=== PATIENT | female | born 1955 | race Caucasian/White ===

== ENCOUNTER 2020-08-23 09:55 | Outpatient (REF) | payer MEDICAID, SELFPAY | END 2020-08-23 09:56 | disposition home or self-care (01) | LOC: HO.SCI 09:55 | DX: Z13.89 Encounter for screening for other disorder (principal) ==

== ENCOUNTER 2020-09-22 11:49 | Outpatient (REF) | payer MEDICAID, SELFPAY ==
--- NOTE | ~2020-09-22 | US_ITS ---
EXAMINATION: US RETROPERITONEAL LIMITED (RENAL ONLY) CLINICAL INFORMATION: Chronic kidney disease stage III B. COMPARISON: None TECHNIQUE: Real-time imaging of the kidneys. FINDINGS: RIGHT KIDNEY: 7.0 x 2.3 x 4.1 cm (SAG x AP x TRV). The right kidney is smaller than the left. There is renal cortical thinning. There is fullness of the renal pelvis. No calyceal dilatation is seen. No renal stone or mass is seen. LEFT KIDNEY: 10.8 x 4.6 x 4.8 cm (SAG x AP x TRV). The kidney is normal in size, contour, and echogenicity. Renal cortical thickness is normal. No calculi or focal parenchymal lesions. No hydronephrosis. US/US renal BI IMPRESSION: Atrophic-appearing right kidney. Normal-appearing left kidney.
== END 2020-09-22 11:50 | disposition home or self-care (01) ==
LOC: HO.US 11:49
PROVIDERS: Visit Provider Internal Medicine Nephrology
DX: N18.32 Chronic kidney disease, stage 3b (principal)
CPT/HCPCS: 76775

== ENCOUNTER 2021-11-19 15:05 | Outpatient (REF) | payer MEDICAID, SELFPAY ==
--- NOTE | ~2021-11-19 | MM_ITS ---
EXAMINATION: MM SCREENING DIGITAL BREAST TOMOSYNTHESIS, BILATERAL CLINICAL INFORMATION: Screening. Asymptomatic. The lifetime risk of breast cancer based on the Tyrer-Cuzick Model is 6%. COMPARISON: Outside mammography: 12/12/2017, 11/25/2017 ([facility]). TECHNIQUE: Digital breast tomosynthesis is performed in both the craniocaudal and mediolateral oblique views along with computer-aided detection (CAD). Synthesized 2D images are generated from the tomosynthesis. FINDINGS: There are scattered areas of fibroglandular density (ACR BI-RADS breast composition Category b). There are no significant masses, abnormal calcifications, or other abnormalities. Left breast has biopsy clip marker posterior upper outer quadrant overlying a smooth nodule slightly decreased in size. There is a intramammary node mid 3:00 left breast. Bilateral vascular calcifications are demonstrated. No significant changes. MM/MM tomosynthesis screening BI IMPRESSION: No mammographic evidence of malignancy. ASSESSMENT: BI-RADS 2: Benign RECOMMENDATION: Routine annual mammography screening. This patient's information was entered into a reminder system with a target due date for their next mammogram.
== END 2021-11-19 15:06 | disposition home or self-care (01) ==
LOC: HO.MAMMO 15:05
PROVIDERS: Visit Provider Internal Medicine
DX: Z12.31 Encounter for screening mammogram for malignant neoplasm of breast (principal)
CPT/HCPCS: 77063; 77067

== ENCOUNTER 2023-04-14 12:04 | Outpatient (REF) | payer MEDICAID, SELFPAY ==
[2023-04-14 13:39] LABS: Anion Gap 14 (12-20); Blood Urea Nitrogen 17 mg/dL (9-16); Calcium 10.1 mg/dL (8.4-10.2); Carbon Dioxide 24 mmol/L (22-29); Chloride 107 mmol/L (96-108); Estimated Glomerular Filt Rate 52; Glucose Random 101 mg/dL (60-115); Potassium 3.8 mmol/L (3.3-5.1); Sodium 141 mmol/L (135-145)
== END 2023-04-14 12:05 | disposition home or self-care (01) ==
LOC: HO.HHCL 12:04
PROVIDERS: Visit Provider Internal Medicine
DX: E11.22 Type 2 diabetes mellitus with diabetic chronic kidney disease (principal); N18.30 Chronic kidney disease, stage 3 unspecified; Z79.4 Long term (current) use of insulin
CPT/HCPCS: 36415; 80048

== ENCOUNTER 2023-09-16 09:57 | Outpatient (REF) | payer OTHER, SELFPAY ==
[2023-09-16 12:41] LABS: Anion Gap 17 (12-20); Blood Urea Nitrogen 15 mg/dL (9-16); Calcium 9.9 mg/dL (8.4-10.2); Carbon Dioxide 23 mmol/L (22-29); Chloride 105 mmol/L (96-108); Cholesterol 193 mg/dL (<200); Estimated Glomerular Filt Rate 57; Glucose Random 93 mg/dL (60-115); HDL Cholesterol 32 mg/dL (>40); Potassium 3.7 mmol/L (3.3-5.1); Sodium 141 mmol/L (135-145); Triglycerides 427 mg/dL (<150)
[2023-09-16 13:00] LABS: Vitamin D 25-OH Total 30.4 ng/mL (>30)
== END 2023-09-16 09:58 | disposition home or self-care (01) ==
LOC: HO.HHCL 09:57
PROVIDERS: Visit Provider Internal Medicine
DX: I12.9 Hypertensive chronic kidney disease with stage 1 through stage 4 chronic kidney disease, or unspecified chronic kidney disease (principal); E11.22 Type 2 diabetes mellitus with diabetic chronic kidney disease; N18.30 Chronic kidney disease, stage 3 unspecified; Z79.4 Long term (current) use of insulin
CPT/HCPCS: 36415; 80048; 80061; 82306

== ENCOUNTER 2024-03-29 12:28 | Outpatient (REF) | payer OTHER, SELFPAY ==
--- NOTE | ~2024-03-29 | XR_ITS ---
EXAMINATION: XR FOOT, RIGHT CLINICAL INFORMATION: Right foot pain after fall COMPARISON: None available. TECHNIQUE: AP, lateral, and oblique views of the right foot. FINDINGS: Decreased bone mineral density which decreases sensitivity for fracture evaluation. No acute visible fracture or dislocation. Multi joint arthritic changes. Plantar calcaneal heel spur. Joint space alignment are maintained. Soft tissues are unremarkable. XR/XR foot RT min 3V IMPRESSION: 1. Decreased bone mineral density which decreases sensitivity for fracture evaluation. 2. No acute visible fracture or dislocation. 3. Multi joint arthritic changes.
== END 2024-03-29 12:29 | disposition home or self-care (01) ==
LOC: HO.HHCX 12:28
PROVIDERS: Visit Provider Internal Medicine
DX: M79.671 Pain in right foot (principal)
CPT/HCPCS: 73630

== ENCOUNTER 2024-10-05 10:40 | Outpatient (REF) | payer OTHER, SELFPAY ==
--- OUTSIDE RECORDS SUMMARY | 2024-10-05 11:42 | XMS_ITS | Clinical Summary ---
Author Organization [facility], Address [address] [place] [address] [place] [address] Phone Care Team Providers Care Material Control Clerk Name Role Phone Lynette Gipson MD Primary Care Provide r Allergies No known active allergies Medications Dulaglutide (Trulicity) 1.5 MG/0.5ML solution pen-injector Inject under the skin per week Active amLODIPine-valentino zepril (LOTREL 5-20) 5-20 MG per capsule Take 1 capsule by mouth 1 (one) time each day Active hydroCHLOROthia zide (HYDRODIURIL) 12.5 MG tablet Take 12.5 mg by mouth 1 (one) time each day Active metoprolol succinate XL (TOPROL-XL) 25 MG 24 hr tablet Take 25 mg by mouth 1 (one) time each day Do not crush or chew. Active atorvastatin (LIPITOR) 40 MG tablet Take 40 mg by mouth 1 (one) time each day Active ergocalciferol 1.25 MG (39848 UT) capsule TAKE 1 CAPSULE (50,000 UNITS TOTAL) BY MOUTH ONCE WEEKLY 12 capsule 3 07/05/2022 Active insulin glargine (LANTUS) 100 UNIT/ML injection Inject under the skin every night Active sertraline (ZOLOFT) 25 MG tablet Take 25 mg by mouth 1 (one) time each day Active Active Problems Problem Noted Date Diagnosed Date Vitamin D deficiency, not otherwise specified Stage 3b chronic kidney disease 08/06/2020 Overview (08/18/2020): Update for Diagnosis Load Type 2 diabetes mellitus 08/06/2020 Essential hypertension 08/06/2020 Resolved Problems Problem Noted Date Diagnosed Date Resolved Date Stage 3a chronic kidney disease 07/27/2021 07/22/2022 Social History Tobacco Use Types Packs/Day Years Used Date Smoking Tobacco: Never Assessed Comments Unknown Sex and Gender Information Value Date Recorded Sex Assigned at Not on file Legal Sex Female 12:31 PM EST Gender Identity Not on file Sexual Orientation Not on file Plan of Treatment Health Maintenance Due Date Last Done Comments Breast Cancer Screening 1955 Pneumococcal Vaccine: 65+ Ye ars (1 of 2 - PCV) 02/22/1962 Colorectal Cancer Screening: Annual FOBT 02/22/2005 Colorectal Cancer Screening: Colonoscopy 02/22/2005 Colorectal Cancer Screening: Sigmoidoscopy 02/22/2005 Diabetes: Hemoglobin A1C 08/06/2020 Diabetes: Ophthalmology Exam 08/06/2020 Diabetes: Pedal Pulse Checked 08/06/2020 Diabetes: Sensory Foot Exam 08/06/2020 Diabetes: Visual Foot Exam 08/06/2020 Influenza Vaccine (#1) 2024 Hepatitis B Vaccine Aged Out No longe r eligible based on patient's age to complete this topic Insurance Care Teams Material Control Clerk Relationship Specialty Start Date End Date Lynette Gipson MD [address] [place] [phone] PCP - General Internal Medicine 07/08/20
--- OUTSIDE RECORDS SUMMARY | 2024-10-05 11:42 | XMS_ITS | Encounter Summary ---
Author Organization [employer] [employer] Address [address] [place] [address] Care Team Providers Care Technical Sales Director Name Role Phone Lynette Gipson MD Primary Care Provide r Encounter Details Date Type Department Care Team (Latest Contact Info) Description 10/05/2024 Travel Social History Tobacco Use Types Packs/Day Years Used Date Smoking Tobacco: Never Passive Smoke Exposure: Never Smokeless Tobacco: Never Alcohol Use Standard Drinks/Week Comments Never 0 (1 standard drink = 0.6 oz pur e alcohol) Depression Answer Date Recorded Patient Health Questionnaire-9 Score 0 06/29/2024 Patient Health Questionnaire-9 Score 0 06/29/2024 Last PHQ-9: Questionnaire Data Not on file 1 08/29/2023 Housing Stability Answer Date Recorded What is your housing situation today? I have teri mark 03/29/[address] you li ve. Do you have problems with any of the following? None of the above 03/29/2024 Food Insecurity Answer Date Recorded Within the past 12 months, y ou worried that your food would run out before you got money to buy more: Never True 03/29/2024 Within the past 12 months,th e food you bought just didn't last and you didn't have enough money to get more: Never True Transportation Answer Date Recorded In the past 12 months, has l ack of transportation kept you from medical appts, meetings, work or from getting things needed for daily living? No 03/29/2024 Utilities Answer Date Recorded In the past 12 months, has t he electric, gas, oil or water company threatened to shut off services in your home? No 03/29/2024 Depression Answer Date Recorded Patient Health Questionnaire-2 Score 0 06/29/2024 Internet Access Answer Date Recorded Internet Access Q1 Yes 04/16/2024 Internet Access Q2 Not on file 04/16/2024 Comments Unknown Sex and Gender Information Value Date Recorded Sex Assigned at Female 06/14/2022 10:37 AM EDT Legal Sex Female 10:37 AM EDT Gender Identity Female 06/14/2022 10:37 AM EDT Sexual Orientation Straight 06/14/2022 10 :37 AM EDT documented as of this encounter Plan of Treatment Upcoming Encounters Date Type Department Care Team (Late st Contact Info) Description 10/22/2024 10:00 AM EDT Clinical Support [address] [address] 01/02/2025 10:30 AM EDT Office Visit [address] [address] Lynette Gipson MD [address] [place] [phone] documented as of this encounter Visit Diagnoses Not on filedocumented in this encounter Additional Health Concerns Assessment Noted Time PHQ-9 Depression Total Score: 0 06/29/20 24 10:24 AM EST documented as of this encounter Care Teams Technical Sales Director Relationship Specialty Start Date End Date Lynette Gipson MD [address] [place] [phone] PCP - General Family Medicine 09/24/20 documented as of this encounter
--- OUTSIDE RECORDS SUMMARY | 2024-10-05 11:42 | XMS_ITS | Encounter Summary ---
Author Organization [employer] Address [address] 7[address] [place] [address] Care Team Providers Care Road Mender Name Role Phone Lynette Gipson MD Primary Care Provide r Encounter Details Date Type Department Care Team ([facility] st Contact Info) Description 06/21/2024 Community Care Management [facility] [address] [place] [address] Epiccare Link, Physician, Social History Tobacco Use Types Packs/Day Years Used Date Smoking Tobacco: Never Passive Smoke Exposure: Never Smokeless Tobacco: Never Depression Answer Date Recorded Patient Health Questionnaire-9 Score 0 12/28/2023 Patient Health Questionnaire-9 Score 0 12/28/2023 Last PHQ-9: Questionnaire Data Not on file 0 12/28/2023 Housing Stability Answer Date Recorded What is [...] Date Recorded Patient Health Questionnaire-2 Score 0 12/28/2023 Internet Access Answer Date Recorded Internet Access [...] Description 10/22/2024 10:00 AM EDT Clinical Support [address] [address] 01/02/2025 10:30 AM EDT Office Visit [facility] [address] [place] [phone] Lynette Gipson MD [address] [place] [phone] documented as of this encounter Visit Diagnoses Not on filedocumented in this encounter Additional Health Concerns Assessment Noted Time PHQ-9 Depression Total Score: 0 12/28/19 24 10:29 AM EDT documented as of this encounter Care Teams Road Mender Relationship Specialty Start Date End Date Lynette Gipson MD [address] [place] [phone] PCP - General Family Medicine 09/24/20 documented as of this encounter
--- OUTSIDE RECORDS SUMMARY | 2024-10-05 11:42 | XMS_ITS | Encounter Summary ---
Author Organization [employer] Address [address] [facility] 7t [place] [address] Care Team Providers Care Insurance Operations Rep Name Role Phone Lynette Gipson MD Primary Care Provide r Reason for Referral * Medications - Closed Specialty Diagnoses / Procedures Referred By Portia t Referred To Contact Diagnoses Type 2 diabetes mellitus with stage 3 chronic kidney disease, with long-term current use of insulin, unspecified whether stage 3a or 3b CKD (CMS/HCC) Lynette Gipson MD [address] [place] [phone] Phone: tel: fax: Referral ID Status Reason Start Date Expiration Date Visits Re quested Visits Authorized [id number] Closed 1 1 Encounter Details Date Type Department Care Team (Late st Contact Info) Description 10/05/2024 10:00 AM EST Office Visit [facility] [address] [place] [phone] Lynette Gipson MD [address] [place] [phone] Type 2 diabetes mellitus with stage 3 chronic kidney disease, with long-term current use of insulin, unspecified whether stage 3a or 3b CKD (CMS/HCC) (Primary Dx); Resistant hypertension Social History Tobacco Use Types Packs/Day Years [...] AM EDT documented as of this encounter Last Filed Vital Signs Vital Sign Reading Time Taken Comments Blood Pressure 156/84 10/05/2024 10:26 AM EST Pulse 109 10/05/2024 10:26 AM EST Temperature 35 ??C (95 ??F) 10/05/2024 10:00 AM EST Respiratory Rate 22 10/05/2024 10:00 AM EST Oxygen Saturation - - Inhaled Oxygen Concentration - - Weight 57 kg (125 lb 9.6 oz) 10/05/2024 10:00 AM EST Height 144.8 cm (4' 9 ) 10/05/2024 10:00 AM EST Body Mass Index 27.18 10/05/2024 10:00 AM EST documented in this encounter Plan of Treatment Upcoming Encounters Date Type Department Care Team (Late st Contact Info) Description 10/22/2024 10:00 AM EDT Clinical Support [facility] [address] [place] [address] 01/02/2025 10:30 AM EDT Office Visit [address] [address] Lynette Gipson MD [address] [place] [address] Scheduled Orders Name Type Priority Associated Diagnoses Orde r Schedule CBC auto differential Lab Routine Type 2 diabetes mellitus with stage 3 chronic kidney disease, with long-term current use of insulin, unspecified whether stage 3a or 3b CKD (CMS/HCC) Resistant hypertension Expected: 10/05/2024 (Approximate), Expires: 10/05/2025 Comprehensive Metabolic Panel Lab Routine Type 2 diabetes mellitus with stage 3 chronic kidney disease, with long-term current use of insulin, unspecified whether stage 3a or 3b CKD (CMS/HCC) Resistant hypertension Expected: 10/05/2024 (Approximate), Expires: 10/05/2025 Hepatitis C Antibody with Reflex to HCV, RNA, Quantitative, Real-Time PCR Lab Routine Type 2 diabetes mellitus with stage 3 chronic kidney disease, with long-term current use of insulin, unspecified whether stage 3a or 3b CKD (CMS/HCC) Resistant hypertension Expected: 10/05/2024, Expires: 10/05/2025 Lipid Panel, Standard Lab Routine Type 2 diabetes mellitus with stage 3 chronic kidney disease, with long-term current use of insulin, unspecified whether stage 3a or 3b CKD (CMS/HCC) Resistant hypertension Expected: 10/05/2024 (Approximate), Expires: 10/05/2025 Vitamin D, 25-Hydroxy, Total, Immunoassay Lab Routine Type 2 diabetes mellitus with stage 3 chronic kidney disease, with long-term current use of insulin, unspecified whether stage 3a or 3b CKD (CMS/HCC) Resistant hypertension Expected: 10/05/2024 (Approximate), Expires: 10/05/2025 TSH with Reflex to Free T4 Lab Routine Type 2 diabetes mellitus with stage 3 chronic kidney disease, with long-term current use of insulin, unspecified whether stage 3a or 3b CKD (CMS/HCC) Resistant hypertension Expected: 10/05/2024 (Approximate), Expires: 10/05/2025 documented as of this encounter Procedures Procedure Name Priority Date/Time Associated Diagnosis Comments POCT GLUCOSE Routine 10/05/2024 10:02 AM EST Type 2 diabetes mellitus with stage 3 chronic kidney disease, with long-term current use of insulin, unspecified whether stage 3a or 3b CKD (CMS/HCC) documented in this encounter Results * POCT Glucose (10/05/2024 10:02 AM EST) Glucose Blood, POC 194 60 - 200 mg/dL Comment:random QC Media Lot # [id number] Lot# Expiration Date Blood Capillary blood specimen / Unknown 10/05/2024 10:02 AM EST Lynette Antonio MD POINT OF CARE TEST EN TER/EDIT ORDERABLES Final Result documented in this encounter Visit Diagnoses Diagnosis Type 2 diabetes mellitus with stage 3 chronic kidney disease, with long-term current use of insulin, unspecified whether stage 3a or 3b CKD (CMS/HCC)- Primary Resistant hypertension documented in this encounter Additional Health Concerns Assessment Noted Time PHQ-9 Depression Total Score: 0 06/29/20 24 10:24 AM EST documented as of this encounter Care Teams Insurance Operations Rep Relationship Specialty Start Date End Date Lynette Gipson MD [address] [place] [phone] PCP - General Family Medicine 09/24/20 documented as of this encounter
--- OUTSIDE RECORDS SUMMARY | 2024-10-05 11:42 | XMS_ITS | Encounter Summary ---
Author Organization [employer] Address [address] [place] [address] Care Team Providers Care Cafe Site Attendant Name Role Phone Lynette Gipson MD Primary Care Provide r Reason for Visit * Reason Onset Date Comments Chart Prep 09/28/2024 Encounter Details Date Type Department Care Team ([facility] st Contact Info) Description 09/28/2024 Telephone [facility] [address] [place], [place] [phone] Lynette Gipson MD [address] [place] [address] Chart Prep Social History Tobacco Use Types Packs/Day Years [...] AM EDT documented as of this encounter Miscellaneous Notes * Telephone Encounter - Deb Newton MA - 09/28/2024 3:11 PM EST Chart Prep Labs: done Images: not done Vaccines due: yes Referrals: Cardiology appt booked for 01/04/2024 aks patient if she went also podiatry 03/29/2024 Screenings: colonoscopy , mammogram Overdue care gaps: Glucose documented in this encounter Plan of Treatment Upcoming Encounters Date Type Department Care Team (Late st Contact Info) Description 10/22/2024 10:00 AM EDT Clinical Support [facility] [address] [place] [phone] 01/02/2025 10:30 AM EDT Office Visit [facility] [address] [place] [phone] Lynette Gipson MD [address] [place] [phone] documented as of this encounter Visit Diagnoses Not on filedocumented in this encounter Additional Health Concerns Assessment Noted Time PHQ-9 Depression Total Score: 0 06/29/20 24 10:24 AM EST documented as of this encounter Care Teams Cafe Site Attendant Relationship Specialty Start Date End Date Lynette Gipson MD [address] [place] [address] PCP - General Family Medicine 09/24/20 documented as of this encounter
--- OUTSIDE RECORDS SUMMARY | 2024-10-05 11:42 | XMS_ITS | Encounter Summary ---
Author Organization [employer] Address [address] [place] [address] Care Team Providers Care Food Manager Name Role Phone Lynette Gipson MD Primary Care Provide r Reason for Visit * Reason Comments Pre-visit Planning (Unable to reach for PVP screening, LVM) Encounter Details Date Type Department Care Team ([facility] st Contact Info) Description 09/20/2024 Patient Outreach [facility] [address] [place], [place] [phone] Lynette Gipson MD [address] [place] [address] Pre-visit Planning ((Unable to reach for PVP screening, LVM)) Social History Tobacco Use Types Packs/Day Years [...] AM EDT documented as of this encounter Progress Notes * Sandra Bronson - 09/20/2024 2:35 PM EST TALIB Flores. Placed outbound call to patient to complete pre-visit planning. No answer at this time. Patient name and were not confirmed. CC left voicemail requesting return call. Direct contact information provided. documented in this encounter Plan of Treatment Upcoming Encounters Date Type Department Care Team (Late st Contact Info) Description 10/22/2024 10:00 AM EDT Clinical Support [facility] [address] [place] [phone] 01/02/2025 10:30 AM EDT Office Visit [facility] [address] [place] [phone] Lynette Gipson MD [address] [place] [phone] documented as of this encounter Visit Diagnoses Not on filedocumented in this encounter Additional Health Concerns Assessment Noted Time PHQ-9 Depression Total Score: 0 06/29/20 24 10:24 AM EST documented as of this encounter Care Teams Food Manager Relationship Specialty Start Date End Date Lynette Gipson MD [address] [place] [address] PCP - General Family Medicine 09/24/20 documented as of this encounter
--- OUTSIDE RECORDS SUMMARY | 2024-10-05 11:42 | XMS_ITS | Encounter Summary ---
Author Organization [employer] Address [address] [place] [address] Care Team Providers Care Clinical Rehabilitation Aide Name Role Phone Lynette Gipson MD Primary Care Provide r Encounter Details Date Type Department Care Team ([facility] st Contact Info) Description 09/16/2023 Telephone [facility] [address] [place], [place] [phone] Lynette Gipson MD [address] [place], [place] [phone] Social History Tobacco Use Types Packs/Day Years [...] Description 10/22/2024 10:00 AM EDT Clinical Support [facility] [address] [place] [phone] 01/02/2025 10:30 AM EDT Office Visit [address] [address] Lynette Gipson MD [address] [place] [phone] documented as of this encounter Visit Diagnoses Not on filedocumented in this encounter Additional Health Concerns Assessment Noted Time PHQ-9 Depression Total Score: 5 11/09/19 23 9:02 AM EDT documented as of this encounter Care Teams Clinical Rehabilitation Aide Relationship Specialty Start Date End Date Lynette Gipson MD [address] [place] [phone] PCP - General Family Medicine 09/24/20 documented as of this encounter
--- OUTSIDE RECORDS SUMMARY | 2024-10-05 11:42 | XMS_ITS | Encounter Summary ---
Author Organization [facility] Address [address] [place] [address] Phone Care Team Providers Care Zipper Repairer Name Role Phone Lynette Gipson MD Primary Care Provide r Encounter Details Date Type Department Care Team (Late st Contact Info) Description 07/21/2022 Documentation Only [facility], [address] [place] [phone] Miguel Johnston PA Social History Tobacco Use Types Packs/Day Years Used Date Smoking Tobacco: Never Assessed Comments Unknown Sex and Gender Information Value Date Recorded Sex Assigned at Not on file Legal Sex Female 12:31 PM EST Gender Identity Not on file Sexual Orientation Not on file documented as of this encounter Plan of Treatment Not on file documented as of this encounter Visit Diagnoses Not on filedocumented in this encounter Care Teams Zipper Repairer Relationship Specialty Start Date End Date Lynette Gipson MD [address] [place] [phone] PCP - General Internal Medicine 07/08/20 documented as of this encounter
--- OUTSIDE RECORDS SUMMARY | 2024-10-05 11:42 | XMS_ITS | Encounter Summary ---
Author Organization [employer] Address [address] [facility] 7t [place] [address] Care Team Providers Care Conservator Artifacts Name Role Phone Lynette Gipson MD Primary Care Provide r Encounter Details Date Type Department Care Team (Late Contact Info) Description 11/09/2022 Orders Only [facility] [address] [place] [phone] Lynette Gipson MD [address] [place] [address] [phone] Dyslipidemia associated with type 2 diabetes mellitus (CMS/HCC) (Primary Dx) Social History Tobacco Use Types Packs/Day Years Used Date Smoking Tobacco: Never Passive Smoke Exposure: Never Smokeless Tobacco: Never Depression Answer Date Recorded Patient Health Questionnaire-9 Score 5 11/08/2022 Depression Answer Date Recorded Patient Health Questionnaire-2 Score 2 11/08/2022 Comments Unknown Sex and Gender Information Value Date Recorded Sex Assigned at Female 06/14/2022 10:37 AM EDT Legal Sex Female 10:37 AM EDT Gender Identity Female 06/14/2022 10:37 AM EDT Sexual Orientation Straight 06/14/2022 10 :37 AM EDT COVID-19 Exposure Response Date Recorded In the last 10 days, have yo u been in contact with someone who was confirmed or suspected to have Coronavirus/COVID-19? No / Unsure 11/08/2022 8:44 AM EDT documented as of this encounter Plan of Treatment Upcoming Encounters Date Type Department Care Team (Late Contact Info) Description 10/22/2024 10:00 AM EDT Clinical Support [facility] [address] [place] [phone] 01/02/2025 10:30 AM EDT Office Visit [facility] [address] [place], [place] [phone] Lynette Gipson MD [address] [place] [address] documented as of this encounter Visit Diagnoses Diagnosis Dyslipidemia associated with type 2 diabetes mellitus (CMS/HCC) (CMS/HCC)- Primary documented in this encounter Additional Health Concerns Assessment Noted Time PHQ-9 Depression Total Score: 5 11/09/19 23 9:02 AM EDT documented as of this encounter Care Teams Conservator Artifacts Relationship Specialty Start Date End Date Lynette Gipson MD [address] [place] [address] PCP - General Family Medicine 09/24/20 documented as of this encounter
--- OUTSIDE RECORDS SUMMARY | 2024-10-05 11:42 | XMS_ITS | Clinical Summary ---
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 Role Phone Unavailable Primary Care Provider Unavailabl e Social History Tobacco Use Types Packs/Day Years Used Date Smoking Tobacco: Never Assessed Comments Unknown Sex and Gender Information Value Date Recorded Sex Assigned at Not on file Legal Sex Female 8:28 AM EST Gender Identity Not on file Sexual Orientation Not on file Plan of Treatment Health Maintenance Due Date Last Done Comments DTaP,Tdap,and Td Vaccines (1 - Tdap) 02/22/1975 Pneumococcal Vaccine: 50+ Ye ars (1 of 1 - PCV) 02/22/2006 Zoster Vaccines (1 of 2) 02/22/2006 Breast Cancer Screening 11/26/2019 11/25/2017 Colorectal Cancer Screening: Colonoscopy 09/13/2023 Depression Screening 09/13/2023 Falls Risk Assessment 09/13/2023 Hepatitis C Screening 09/13/2023 Osteoporosis Screening (Bone Density Screening) 09/13/2023 Social Influencers of Health Screening 09/13/2023 COVID-19 Vaccine (1 - 2023-2 5 season) 2024 Influenza Vaccine (#1) 2024 RSV Immunization Patients 60 + Years Old (1 - 1-dose 75+ series) 02/22/2031 HIB Vaccines Aged Out No longer eligi ble based on patient's age to complete this topic HPV Vaccines Aged Out No longer eligi ble based on patient's age to complete this topic Hepatitis A Vaccines Aged Out No long er eligible based on patient's age to complete this topic Hepatitis B Vaccines Aged Out No long er eligible based on patient's age to complete this topic IPV Vaccines Aged Out No longer eligi ble based on patient's age to complete this topic MMR Vaccines Aged Out No longer eligi ble based on patient's age to complete this topic Meningococcal ACWY Vaccine Aged Out N o longer eligible based on patient's age to complete this topic Meningococcal B Vacine Aged Out No lo nger eligible based on patient's age to complete this topic RSV Immunization Patients Un porsha 20 months Aged Out No longer eligible b ased on patient's age to complete this topic Varicella Vaccines Aged Out No longer eligible based on patient's age to complete this topic Procedures Procedure Name Priority Date/Time Associated Diagnosis Comments GERMAN SCREENING DIGITAL Routine 11/25/2017 4:05 PM EDT Encounter for screening mammogram for malignant neoplasm of breast from Last 3 Months or Most Recently Relevant to Health Maintenance Results * GERMAN SCREENING DIGITAL (11/25/2017 4:05 PM EDT) Anatomical Region Laterality Modality Mammography 11/25/2017 12:5 2 PM EDT Narrative 11/25/2017 4:05 PM EDT [facility] Diagnostic Imaging Department [address] [place] [address] Patient: ??MADELEINE JIMÉNEZ ?/Age/Sex: 1955 - 62 - F Unit#: ??[id number] ? Location/Status: ??SPDIMAM/REG CLI ? Mnemonic/Ordering Site: ??DIGSC/SPMAM Ordering Physician: ??EVA DOMÍNGUEZ DO German Screening Digital - 11/25/17 - 1328 INDICATION: Screening. Family history breast cancer in sister at age 75. COMPARISON: Baseline mammogram TECHNIQUE: Routine views of both breasts were obtained using full-field direct digital mammography. Computer Aided Detection was utilized. BREAST PARENCHYMAL COMPOSITION: The breast parenchyma is composed of scattered fibroglandular densities. (Category b density ) . FINDINGS: ??There is no suspicious finding in the right breast. Well- circumscribed mass in the posterior third of the left breast is likely benign however given the absence of prior imaging, further evaluation with ultrasound is recommended at approximately 12-2 o'clock axis, 11 to 12 cm from the nipple. IMPRESSION: Well-circumscribed mass in the posterior aspect of the left breast. Recommend further evaluation with ultrasound as described above. OVERALL FINAL ASSESSMENT: BI-RADS 0: ??Incomplete. ??Need Additional Imaging Evaluation. PQRI CPT II 3340F A negative mammogram in the presence of clinically suspicious palpable abnormality does not preclude the possibility of malignancy or alter the indications for biopsy. Note: Patient information entered into a reminder system with a target due date for the next mammogram: ??CPT II 7025F G0202/13086 Dictating Physician: ??MAG MULLINS MD Electronically Signed by: ??MAG MULLINS MD Dic Date/Time: ??11/25/17 6889 Sign date/Time: ??11/25/17 4435 Procedure Note Mag Mullins MD - 08/03/2022 [facility] Diagnostic Imaging Department [address] [place], [place] [id number] Patient: JESSYMADELEINE.O.B./Age/Sex: 1955 - 62 - F Unit#: [id number] Location/Status: SPDIMA/REG CLI Mnemonic/Ordering Site: [facility] Ordering Physician: EVA DOMÍNGUEZ DO German Screening Digital - 11/25/17 - 1328 INDICATION: Screening. Family history breast cancer in sister at age 75. COMPARISON: Baseline mammogram TECHNIQUE: Routine views of both breasts were obtained using full-fielddirect digital mammography. Computer Aided Detection was utilized. BREAST PARENCHYMAL COMPOSITION: The breast parenchyma is composed ofscattered fibroglandular densities. (Category b density ) . FINDINGS: There is no suspicious finding in the right breast. Well- circumscribed mass in the posterior third of the left breast is likelybenign however given the absence of prior imaging, further evaluation withultrasound is recommended at approximately 12-2 o'clock axis, 11 to 12 cm from thenipple. IMPRESSION: Well-circumscribed mass in the posterior aspect of the left breast.Recommend further evaluation with ultrasound as described above. OVERALL FINAL ASSESSMENT: BI-RADS 0: Incomplete. Need Additional Imaging Evaluation. PQRI CPT II 3340F A negative mammogram in the presence of clinically suspicious palpable abnormality does not preclude the possibility of malignancy or alter the indications for biopsy. 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
--- OUTSIDE RECORDS SUMMARY | 2024-10-05 11:42 | XMS_ITS | Clinical Summary ---
Author Organization [employer] Address [address] [facility] 7[address] [place] [address] Care Team Providers Care Pantograph Ii Engraver Name Role Phone Lynette Gipson MD Primary Care Provide r Allergies No known active allergies Medications ergocalciferol (Vitamin D2) 1.25 MG (33144 UT) capsule TAKE 1 CAPSULE (50,000 UNITS TOTAL) BY MOUTH WEEKLY 022 Active triamcinolone (Kenalog) 0.1 % creamIndication s:Rash and nonspecific skin eruption APPLY TO AFFECTED AREA TWICE A DAY 300 g 023 Active clonazePAM (KlonoPIN) 0.5 MG tablet Take 1 tablet by mouth 2 times daily. 023 Active FLUoxetine (PROzac) 20 MG capsule Take 1 capsule by mouth 1 (one) time each day. 024 Active ARIPiprazole (Abilify) 2 MG tablet Take 1 tablet by mouth 1 (one) time each day. 024 Active escitalopram (Lexapro) 10 MG tabletIndicatio ns:Mixed anxiety and depressive disorder TAKE 1 TABLET BY MOUTH EVERY DAY IN THE MORNING 30 tablet 2 024 Active mirtazapine (Remeron) 7.5 MG tabletIndicatio ns:Mixed anxiety and depressive disorder TAKE 1 TABLET BY MOUTH AT BEDTIME. 30 tablet 2 024 Active Multiple Vitamin (Daily-Darian Multivitamin) tabletIndicatio ns:Type 2 diabetes mellitus with stage 3 chronic kidney disease, with long-term current use of insulin, unspecified whether stage 3a or 3b CKD (CMS/HCC) TAKE 1 TABLET BY MOUTH EVERY DAY IN THE MORNING 30 tablet 5 Active amLODIPine-valentino zepril (Lotrel) 10-40 MG capsuleIndicati ons:Essential hypertension Take 1 capsule by mouth Once per day. 30 capsule 11 024 2024 Active atorvastatin (Lipitor) 40 MG tabletIndicatio ns:Dyslipidemia associated with type 2 diabetes mellitus (CMS/HCC) ([facility]) Take 1 tablet (40 mg) by mouth in the morning. 90 tablet 3 024 Active chlorthalidone (Hygroton) 25 MG tabletIndicatio ns:Essential hypertension Take 1 tablet (25 mg) by mouth Once per day. 90 tablet 3 024 2024 Active Lantus SoloStar 100 UNIT/ML penIndications: Type 2 diabetes mellitus with other specified complication, with long-term current use of insulin ([facility]) INJECT 14 UNITS SUBCUTANEOUSLY EVERY EVENING PER PRESCRIBER'S INSTRUCTIONS. 15 mL 1 Active metoprolol succinate XL (Toprol-XL) 25 MG 24 hr tabletIndicatio ns:Essential hypertension Take 1 tablet (25 mg) by mouth Once per day. Do not crush or chew. 90 tablet 3 024 Active Dulaglutide 0.75 MG/0.5ML solution auto-injectorIn dications:Type 2 diabetes mellitus with stage 3 chronic kidney disease, with long-term current use of insulin, unspecified whether stage 3a or 3b CKD ([facility]) Inject 0.75 mg under the skin 1 (one) time per week. 3 mL 1 025 Active Dulaglutide 0.75 MG/0.5ML solution auto-injectorIn dications:Type 2 diabetes mellitus with stage 3 chronic kidney disease, with long-term current use of insulin, unspecified whether stage 3a or 3b CKD (CMS/HCC) Inject 0.5 mL (0.75 mg) under the skin 1 (one) time per week. 3 mL 1 024 2024 Discontinued(R eorder (will not trigger notification to Pharmacy)) Active Problems Problem Noted Date Diagnosed Date Right foot pain 03/29/2024 Onychomycosis 03/29/2024 Resistant hypertension 01/04/2024 Unstable gait 12/28/2023 Assessment & Plan (06/29/2024 12:21 PM EST): Quad cane will be prescribed today Assessment & Plan (12/30/2023 4:18 PM EDT): Cane with 3 legs prescribed today Encounter for screening mamm ogram for malignant neoplasm of breast 09/16/2023 Right tibial fracture 09/16/2023 Hospital discharge follow-up 09/16/2023 Colon cancer screening 04/14/2023 Encounter for preventative adult health care exa mination 11/08/2022 Assessment & Plan (11/08/2022 9:36 AM EDT): Concerns for today's visit: Occupation: retired Lives with: with son Social Hx: Denies drinking EtOH, denies smoking cigarettes and denies recreational drug use. Sleep: sleeps well with her medications Diet: diabetic diet Exercise: sedentary LMP: menopause Mammogram ordered today Colonoscopy: stool test provided today DEXA Scan: ordered today Hospitalizations/Surgeries: Eye Care: referral today Dental Care: recent visit Immunizations: COVID up to date Flu vaccine pending Rash and nonspecific skin eruption 11/08/2022 Assessment & Plan (11/08/2022 9:49 AM EDT): I will prescribed trail of triamcinolone twice a day no more than 2 weeks, I advise to use lotion every day Essential hypertension 11/05/2022 Assessment & Plan (06/29/2024 12:19 PM EST): Maintenance: BMP: up to date Lipid Panel: up to date ASCVD Risk: 22.3% I advised - Aerobic exercise to reduce BP. Initial goal of 30 min walk 3-5x/week. Increase as tolerated. - low-sodium diet (goal: <2g/day) and heart healthy diet such as DASH to reduce BP and prevent ASCVD. - Home BP monitoring 1-2 x day with goal of <140/90. - Seek immediate medical attention for chest pain, palpitations, SOB, syncope, or sudden changes in mental status. - Do not change or discontinue current prescriptions without first consulting health care provider Assessment & Plan (03/29/2024 10:58 AM EDT): I advise low Na diet and weight reduction I advise to log her blood pressure at home and bring log for next visit I went up on amlodipine/benazapril to 10-40mg daily c/w chlorthalidone 25mg daily, metoprolol 25mg daily Assessment & Plan (12/30/2023 4:16 PM EDT): -I went up on her lotrel dose to 5-40mg daily RTC 1 week with nurse for BP check if still high I will like to add carvedilol 6.25mg BID - Aerobic exercise to reduce BP. Initial goal of 30 min walk 3-5x/week. Increase as tolerated. - low-sodium diet (goal: <2g/day) and heart healthy diet such as DASH to reduce BP and prevent ASCVD. - Home BP monitoring 1-2 x day with goal of <140/90. - Seek immediate medical attention for chest pain, palpitations, SOB, syncope, or sudden changes in mental status. - Do not change or discontinue current prescriptions without first consulting health care provider Assessment & Plan (04/14/2023 3:45 PM EDT): Blood pressure is high today, patient explains to me her blood pressure is always good at home (her children checks it) but every time she comes to the clinic her blood pressure goes up because she feels nervous Patient reports she is adherent to medication and low Na diet I advise not to skin any medication dose and to keep log of her BP if her BP is >140/90mmhg to reports back to me Assessment & Plan (01/12/2023 9:39 AM EDT): - Aerobic exercise to reduce BP. Initial goal of 30 min walk 3-5x/week. Increase as tolerated. - low-sodium diet (goal: <2g/day) and heart healthy diet such as DASH to reduce BP and prevent ASCVD. - Home BP monitoring 1-2 x day with goal of <140/90. - Seek immediate medical attention for chest pain, palpitations, SOB, syncope, or sudden changes in mental status. - Do not change or discontinue current prescriptions without first consulting health care provider Assessment & Plan (11/08/2022 10:00 AM EDT): Maintenance: BMP: ordered today Lipid Panel: ordered today ASCVD Risk: Calculate pending updated labs - Aerobic exercise to reduce BP. Initial goal of 30 min walk 3-5x/week. Increase as tolerated. - low-sodium diet (goal: <2g/day) and heart healthy diet such as DASH to reduce BP and prevent ASCVD. - Home BP monitoring 1-2 x day with goal of <140/90. - Seek immediate medical attention for chest pain, palpitations, SOB, syncope, or sudden changes in mental status. - Do not change or discontinue current prescriptions without first consulting health care provider, continue with same medication Hypertensive disorder 11/05/2022 Assessment & Plan (09/16/2023 1:14 PM EST): Maintenance: BMP: up to date Lipid Panel: up to date ASCVD Risk: on atorvastatin 40mg daily - Aerobic exercise to reduce BP. Initial goal of 30 min walk 3-5x/week. Increase as tolerated. - low-sodium diet (goal: <2g/day) and heart healthy diet such as DASH to reduce BP and prevent ASCVD. - Home BP monitoring 1-2 x day with goal of <140/90. - Seek immediate medical attention for chest pain, palpitations, SOB, syncope, or sudden changes in mental status. - Do not change or discontinue current prescriptions without first consulting health care provider Intention tremor 11/05/2022 Mixed anxiety and depressive disorder 11/05/2022 Assessment & Plan (09/16/2023 1:16 PM EST): I will do refills that where requested for one month until she is engage again with psychiatrist Assessment & Plan (11/08/2022 10:01 AM EDT): C/w same medications, continue with therapist Major depressive disorder 11/05/2022 Mood disorder 11/05/2022 Stage 3 chronic kidney disease 11/05/2022 Stage 3b chronic kidney disease 11/05/2022 Type 2 diabetes mellitus wit h kidney complication, with long-term current use of insulin 11/05/2022 Assessment & Plan (06/29/2024 12:20 PM EST): Diabetes is: controlled - Lab Results Component Value Date HGBA1C 6.9 (A) 06/29/2024 HGBA1C 10.2 (A) 03/29/2024 HGBA1C 7.3 (A) 12/28/2023 - Lab Results Component Value Date MICROALBUR 2.3 03/12/2022 CREATININE 0.98 09/16/2023 -Changes: none - Diabetic eye exam: up to date - Diabetic foot exam:up to date - Continue lifestyle modifications - Continue current medications - Follow up: 3 months Assessment & Plan (03/29/2024 10:59 AM EDT): Diabetes is: not controlled - Lab Results Component Value Date HGBA1C 10.2 (A) 03/29/2024 HGBA1C 7.3 (A) 12/28/2023 HGBA1C 6.2 (A) 09/16/2023 - Lab Results Component Value Date MICROALBUR 2.3 03/12/2022 CREATININE 0.98 09/16/2023 -Changes: Patient tells me she has not received her trulicity in a long time due to shortage I re-initiate on 0.75mg weekly also I went up on lantus to 14U at bed time - Diabetic eye exam:up to date - Diabetic foot exam:referral done today - Continue lifestyle modifications - Follow up: 3 months Assessment & Plan (12/30/2023 4:17 PM EDT): Diabetes is: almost at goal - Lab Results Component Value Date HGBA1C 7.3 (A) 12/28/2023 HGBA1C 6.2 (A) 09/16/2023 HGBA1C 6.1 (A) 04/14/2023 - Lab Results Component Value Date MICROALBUR 2.3 03/12/2022 CREATININE 0.98 09/16/2023 -Changes: extensive diet counseling today - Diabetic eye exam:up to date - Diabetic foot exam:pending - Continue lifestyle modifications - Continue current medications - Follow up: 3 months Assessment & Plan (09/16/2023 1:15 PM EST): - Lab Results Component Value Date HGBA1C 6.2 (A) 09/16/2023 HGBA1C 6.1 (A) 04/14/2023 HGBA1C 5.9 11/08/2022 - Lab Results Component Value Date MICROALBUR 2.3 03/12/2022 CREATININE 0.98 09/16/2023 - - Diabetic eye exam:up to date - Diabetic foot exam:pending - Continue lifestyle modifications - Continue current medications - Assessment & Plan (04/14/2023 3:45 PM EDT): Lab Results Component Value Date HGBA1C 6.1 (A) 04/14/2023 HGBA1C 5.9 11/08/2022 HGBA1C 6.2 (H) 06/25/2020 - Lab Results Component Value Date MICROALBUR 2.3 03/12/2022 CREATININE 1.05 04/14/2023 - Diabetic eye exam: up to date - Diabetic foot exam: pending - Continue lifestyle modifications - Continue current medications Assessment & Plan (01/12/2023 9:40 AM EDT): C/w current interventions Assessment & Plan (11/08/2022 10:01 AM EDT): Today A1c 5.9% glucose 140 - Lab Results Component Value Date HGBA1C 6.2 (H) 06/25/2020 - Diabetic eye exam: referral doen today - Diabetic foot exam: done today - Continue lifestyle modifications - Continue current medications Encounters Date Type Department Care Team Description 10/05/2024 10:00 AM EST Office Visit [address] [id number] Lynette Gipson MD Type 2 diabetes mellitus with stage 3 chronic kidney disease, with long-term current use of insulin, unspecified whether stage 3a or 3b CKD (CMS/HCC) (Primary Dx); Resistant hypertension 10/05/2024 Travel 09/28/[address] [address] Lynette Gipson MD Chart Prep 09/20/2024 Patient Outreach [address] [place] [address] Lynette Gipson MD Pre-visit Planning ((Unable to reach for PVP screening, LVM)) from Last 3 Months Immunizations Name Administration Dates Next Due Influenza High-dose Quadrivalent Preservative Fr ee 06/21/2022 Influenza Quadrivalent Adjuvanted 06/08/2023 Influenza injectable quadrivalent preservative f ree 06/27/2020 Pfizer Covid-19 Vaccine 12+ 03/31/2022, 2 Pfizer Covid-19 Vaccine 12+ mart-sucrose (Posadas C ap) 03/31/2022,03/10/2022 Pneumococcal Conjugate PCV 20 06/21/2022 Family History Medical History Relation Name Comments Diabetes Mother Hypertension Mother Breast cancer Sister Relation Name Status Comments Mother Sister Social History Tobacco Use Types Packs/Day Years Used Date Smoking Tobacco: Never Passive Smoke Exposure: Never Smokeless Tobacco: Never Tobacco Cessation:Counseling Given: No Alcohol Use Standard Drinks/Week Comments Never 0 [...] Orientation Straight 06/14/2022 10 :37 AM EDT Last Filed Vital Signs Vital Sign Reading Time Taken Comments Blood Pressure 156/84 10/05/2024 10:26 AM EST Pulse 109 10/05/2024 10:26 AM EST Temperature 35 ??C (95 ??F) 10/05/2024 10:00 AM EST Respiratory Rate 22 10/05/2024 10:00 AM EST Oxygen Saturation 99% 03/29/2024 10:15 AM EDT Inhaled Oxygen Concentration - - Weight 57 kg (125 lb 9.6 oz) 10/05/2024 10:00 AM EST Height 144.8 cm (4' 9 ) 10/05/2024 10:00 AM EST Body Mass Index 27.18 10/05/2024 10:00 AM EST Plan of Treatment Upcoming Encounters Date Type Department Care Team (Late st Contact Info) Description 10/22/2024 10:00 AM EDT Clinical Support [address] [address] 01/02/2025 10:30 AM EDT Office Visit [address] [address] Lynette Gipson MD [address] [place] [phone] Health Maintenance Due Date Last Done Comments CT Colonography 1956 Colonoscopy 1956 Colorectal Cancer Screening 1956 FIT DNA/Cologuard 1956 FIT 1956 FOBT 1955 Sigmoidoscopy 1955 Hepatitis C Screening 02/22/1974 DTaP/Tdap/Td Vaccines (1 - Tdap) 02/22/1975 Zoster Vaccines (1 of 2) 02/22/2006 RSV Patients and Patients Aged 60 years or older (1 - Risk 60-74 years 1-dose series) 2016 Mammogram 11/19/2022 11/19/2021 COVID-19 Vaccine ( season) 2024 03/31/2022, 03/31/2022, 03/10/2022, Additional history exists Influenza Vaccine (#1) 2024 , 06/21/2022, 06/27/2020 Lipid Panel 09/16/2024 09/16/2023, 10/14, 03/12/2022, Additional history exists Diabetes: Hemoglobin A1C 12/27/2024 024, 03/29/2024, 12/28/2023, Additional history exists Eye Exam 01/03/2025 01/03/2023, 12/14, 01/03/2023, Additional history exists Diabetes: Foot Exam 03/29/2025 03/29/2024, 11/08/2022, 11/08/2022 SDOH Screening 03/29/2025 03/29/2024 Alcohol/Substance Use Screening 06/29/2025 06/29/2024 Depression Screening 06/29/2025 06/29/2024, 06/29/20 Tobacco Screening 10/05/2025 10/05/2024 Pneumococcal Vaccine: 50+ Years Completed 06/21/2022 HIB Vaccines Aged Out No longer eligi [...] patient's age to complete this topic Meningococcal Vaccine Aged Out No omar rowena eligible based on patient's age to complete this topic RSV under 20 months Aged Out No longe r eligible based on patient's age to complete this topic Rotavirus Vaccines Aged Out No longer eligible based on patient's age to complete this topic Procedures Procedure Name Priority Date/Time Associated Diagnosis Comments POCT GLUCOSE Routine 10/05/2024 10:02 AM EST Type 2 diabetes mellitus with stage 3 chronic kidney disease, with long-term current use of insulin, unspecified whether stage 3a or 3b CKD (CMS/HCC) POCT GLYCATED HEMOGLOBIN, TOTAL Routine 06/29/2024 10:20 AM EST Type 2 diabetes mellitus with other specified complication, with long-term current use of insulin (CMS/HCC) LIPID PANEL, STANDARD Routine 09/16/2023 10:02 AM EST Type 2 diabetes mellitus with stage 3 chronic kidney disease, with long-term current use of insulin, unspecified whether stage 3a or 3b CKD (CMS/HCC) MAMMOGRAM GENERIC Routine 11/19/2021 3:3 0 PM EDT from Last 3 Months or Most Recently Relevant to Health Maintenance Results * POCT Glucose (10/05/2024 10:02 AM EST) Glucose Blood, POC 194 60 - 200 mg/dL Comment:random QC Media Lot # [id number] Lot# Expiration Date ,101,025 Blood Capillary blood specimen / Unknown 10/05/2024 10:02 AM EST Lynette Antonio MD POINT OF CARE TEST EN TER/EDIT ORDERABLES Final Result * (ABNORMAL) POCT HGB A1C (06/29/2024 10:20 AM EST) Hemoglobin A1C 6.9(A) 4.0 - 6.0 % QC Media Lot # [id number] Lot# Expiration Date 972,026 Blood 06/29/2024 10:2 0 AM EST Lynette Antonio MD POINT OF CARE TEST EN TER/EDIT ORDERABLES Final Result * (ABNORMAL) Lipid Panel, Standard (09/16/2023 10:02 AM EST) Triglycerides 427(H) <150 mg/dL [facility] Comment:Desirable Triglyceri de: less than 150 mg/dLBorderline High Triglyceride 150-199 mg/dLHigh Triglyceride: 200-499 mg/dLVery High Triglyceride: greater than or equal to 5OO mg/dL Cholesterol 193 <200 mg/dL [facility] Comment:Desirable Cholestero l: less than 200 mg/dLBorderline High Cholesterol: 200-239 mg/dLHigh Cholesterol: greater than 239 mg/dL LDL Cholesterol Calculated TNP <100 mg/dL [facility] Comment:Unable to calculate the LDL. The formula of Friedwald,Valente, and Ish is only valid if the triglycerides areless than 400 mg/dl. HDL Cholesterol 32(L) >40 mg/dL [facility] Comment:Desirable HDL: great er than 40 mg/dL Note: This HDL assay may give artificially low results in patients with liver disease. Blood Venous blood specimen / Unknown 09/16/2023 10:02 AM EST 09/16/2023 11:38 AM EST us Lynette Antonio MD LAB BLOOD ORDERABLES Final Result [facility] [address] [place] [phone] * Mammography Report 1 (11/19/2021 3:30 PM EDT) Anatomical Region Laterality Modality Breast Bilateral Mammography 11/19/2021 3:30 PM EDT Narrative 12/02/2021 7:38 AM EDT Refer to the Notes tab for result details [facility] Procedure: Mammography Report 1 Procedure Note Provider, MD David - 11/07/2022 Refer to the Notes tab for result details [facility] Procedure: Mammography Report 1 us Lynette Antonio MD IMG BI PROCEDURES Fin al Result from Last 3 Months or Most Recently Relevant to Health Maintenance [place] [address] [place] [address] - [employer] Care Teams Pantograph Ii Engraver Relationship Specialty Start Date End Date Lynette Gipson MD [address] [place] [phone] PCP - General Family Medicine 09/24/20
[2024-10-05 13:22] LABS: MANUAL DIFF FLAG NO
[2024-10-05 13:32] LABS: Basophils Absolute Auto 0.1 X10*3/uL (0.0-0.2); Basophils Percent Auto 0.7 % (0-2); Eosinophils Absolute Auto 0.3 X10*3/uL (0.0-0.4); Eosinophils Percent Auto 2.1 % (0-4); Hematocrit 40.6 % (37.0-47.0); Hemoglobin 13.7 g/dl (12.0-16.0); Imm Gran Abs Auto 0.09 X10*3/uL (0.00-0.03); Imm Gran Pct Auto 0.7 % (0.0-0.4); Lymphocytes Absolute Auto 3.7 X10*3/uL (1.2-4.9); Lymphocytes Percent Auto 30.3 % (20-40); Mean Corpuscular HGB Conc 33.7 g/dl (31.0-35.0); Mean Corpuscular Hemoglobin 28.8 pg (27.0-33.0); Mean Corpuscular Volume 85.3 fL (80.0-98.0); Mean Platelet Volume 11.3 fL (9.4-12.3); Monocytes Absolute Auto 0.7 X10*3/uL (0.1-1.2); Monocytes Percent Auto 5.5 % (2-11); Neutrophils Absolute Auto 7.4 x10*3/uL (2.0-8.3); Neutrophils Percent Auto 60.7 % (45-73); Platelet Count 259 X10*3/uL (160-400); Red Blood Count 4.76 X10*6/uL (4.20-5.50); Red Cell Distribution Width 13.6 % (11.0-16.0); White Blood Count 12.1 X10*3/uL (4.8-10.8)
[2024-10-05 13:52] LABS: Alanine Aminotransferase 42 U/L (0-31); Albumin Level 4.6 g/dL (3.5-5.0); Alkaline Phosphatase 137 U/L (39-117); Anion Gap 18 (12-20); Aspartate Amino Transferase 42 U/L (5-31); Bilirubin Total 0.8 mg/dL (0.0-1.0); Blood Urea Nitrogen 24 mg/dL (9-16); Calcium 10.1 mg/dL (8.4-10.2); Carbon Dioxide 21 mmol/L (22-29); Chloride 103 mmol/L (96-108); Cholesterol 259 mg/dL (<200); Estimated Glomerular Filt Rate 41; Glucose Random 208 mg/dL (60-115); HDL Cholesterol 38 mg/dL (>40); Potassium 3.5 mmol/L (3.3-5.1); Sodium 138 mmol/L (135-145); Total Protein 9.4 g/dL (6.5-8.0); Triglycerides 941 mg/dL (<150)
[2024-10-05 14:07] LABS: ~Hepatitis C Antibody Nonreactive (Nonreactive)
[2024-10-05 14:17] LABS: TSH reflex Free T4 1.47 uIU/mL (0.32-4.0); Vitamin D 25-OH Total 68.5 ng/mL (>30)
== END 2024-10-05 10:41 | disposition home or self-care (01) ==
LOC: HO.HHCL 10:40
PROVIDERS: Visit Provider Internal Medicine
DX: E11.22 Type 2 diabetes mellitus with diabetic chronic kidney disease (principal); N18.30 Chronic kidney disease, stage 3 unspecified; Z79.4 Long term (current) use of insulin; I1A.0 Resistant hypertension
CPT/HCPCS: 36415; 80053; 80061; 82306; 84443; 85025; 86803

== ENCOUNTER 2024-11-15 10:19 | Outpatient (REF) | payer OTHER, SELFPAY ==
--- OUTSIDE RECORDS SUMMARY | 2024-11-15 11:13 | XMS_ITS | Encounter Summary ---
Author Organization [employer] Address [address] [facility] [address] [place] [address] Care Team Providers Care Clinical Ob Name Role Phone Lynette Gipson MD Primary Care Provide r Encounter Details Date Type Department Care Team ([facility] st Contact Info) Description 06/21/[address] [facility] [address] [place] [address] [employer] Link, Physician, Social History Tobacco Use [...] Care Team (Late st Contact Info) Description 01/02/2025 10:30 AM EDT Office Visit [facility] [address] [place] [phone] Lynette Gipson MD [address] [place] [phone] documented as of this encounter Visit Diagnoses Not on filedocumented in this encounter Additional Health Concerns Assessment Noted Time PHQ-9 Depression Total Score: 0 12/28/19 24 10:29 AM EDT documented as of this encounter Care Teams Clinical Ob Relationship Specialty Start Date End Date Lynette Gipson MD [address] [place] [phone] PCP - General Family Medicine 09/24/20 documented as of this encounter
--- OUTSIDE RECORDS SUMMARY | 2024-11-15 11:13 | XMS_ITS | Encounter Summary ---
Author Organization [facility] Address [address] [facility] 7t [place] [address] Care Team Providers Care Bed Operator Name Role Phone Lynette Gipson MD Primary Care Provide r Encounter Details Date Type Department Care Team (Late Contact Info) Description 11/09/2022 Orders Only [facility] [address] [place] [phone] Lynette Gipson MD [address] [place] [address] [phone] Dyslipidemia associated with type 2 diabetes mellitus [...] Department Care Team (Late Contact Info) Description 01/02/2025 10:30 AM EDT Office Visit [facility] [address] [place] [phone] Lynette Gipson MD [address] [place] [address] documented as of this encounter Visit Diagnoses Diagnosis Dyslipidemia associated with type 2 diabetes mellitus (CMS/HCC)- Primary documented in this encounter Additional Health Concerns Assessment Noted Time PHQ-9 Depression Total Score: 5 11/09/19 23 9:02 AM EDT documented as of this encounter Care Teams Bed Operator Relationship Specialty Start Date End Date Lynette Gipson MD [address] [place] [address] PCP - General Family Medicine 09/24/20 documented as of this encounter
--- OUTSIDE RECORDS SUMMARY | 2024-11-15 11:13 | XMS_ITS | Clinical Summary ---
Author Organization [employer] Address [address] [facility] [address] [place] [address] Care Team Providers Care Cardiac Care Nurse Name Role Phone Lynette Gipson MD Primary Care Provide r Allergies No known active allergies Medications ergocalciferol (Vitamin D2) 1.25 MG (71804 UT) capsule TAKE 1 CAPSULE (50,000 UNITS TOTAL) BY MOUTH WEEKLY 022 Active triamcinolone (Kenalog) 0.1 % creamIndication s:Rash and nonspecific skin eruption APPLY TO AFFECTED AREA TWICE A DAY 300 g 023 Active escitalopram (Lexapro) 10 MG tabletIndicatio ns:Mixed [...] DAY IN THE MORNING 30 tablet 5 024 Active metoprolol succinate XL (Toprol-XL) 25 MG 24 hr tabletIndicatio ns:Essential hypertension Take 1 tablet (25 mg) by mouth Once per day. Do not crush or chew. 90 tablet 3 024 Active atorvastatin (Lipitor) 40 MG tabletIndicatio ns:Dyslipidemia associated with type 2 diabetes mellitus (CMS/HCC) Take 1 tablet (40 mg) by mouth in the morning. 90 tablet 3 Active fenofibrate (Tricor) 145 MG tabletIndicatio ns:Dyslipidemia associated with type 2 diabetes mellitus (CMS/HCC) Take 1 tablet (145 mg) by mouth Once per day. 30 tablet 11 025 2025 Active Alcohol Swabs (Alcohol Prep) 70 % pads Use as directed four times a day Active clonazePAM (KlonoPIN) 1 MG tablet Take 1 tablet by mouth 2 times daily. Active FLUoxetine (PROzac) 40 MG capsule Take 1 capsule by mouth in the morning. Active B-D UF III MINI PEN NEEDLES 31G X 5 MM misc Inject under the skin. Four times a day Active traZODone (Desyrel) 50 MG tablet Take 1 tablet by mouth at bedtime. Active amLODIPine (Norvasc) 10 MG tablet Take 1 tablet by mouth Once per day. Active insulin glargine (Lantus SoloStar) 100 UNIT/ML pen Inject 24 Units under the skin at bedtime. Active insulin lispro (HumaLOG) 100 UNIT/ML injectionIndica tions:Type 2 diabetes mellitus with other specified complication, with long-term current use of insulin (CMS/HCC) Inject 8 Units under the skin with breakfast, with lunch, and with evening meal. 4 mL 2 Active Continuous Glucose Belt Line Feeder (FreeStyle Mingo 3 [place]) deviceIndicatio ns:Type 2 diabetes mellitus with other specified complication, with long-term current use of insulin (CMS/HCC) 1 each Once per day. Use as directed for CGM 1 each Active Continuous Glucose Sensor (FreeStyle Mingo 3 Plus Sensor) miscIndications :Type 2 diabetes mellitus with other specified complication, with long-term current use of insulin (CMS/HCC) 1 each every 15 days. Apply 1 every 15 days as directed for CGM 2 each Active glucose blood (FreeStyle Precision Wiliam Test) test stripIndication s:Type 2 diabetes mellitus with other specified complication, with long-term current use of insulin (CMS/HCC) Use to test blood sugar 3 times daily in case of CGM failure or extremes of BG 100 each 11 025 2025 Active Lancets miscIndications :Type 2 diabetes mellitus with other specified complication, with long-term current use of insulin ([facility]) 1 each 3 times daily. 100 each 1 025 Active clonazePAM (KlonoPIN) 0.5 MG tablet Take 1 tablet by mouth 2 times daily. 023 2024 Discontinued(M ed list cleanup (will not trigger notification to Pharmacy)) FLUoxetine (PROzac) 20 MG capsule Take 1 capsule by mouth 1 (one) time each day. 024 2024 Discontinued(M ed list cleanup (will not trigger notification to Pharmacy)) ARIPiprazole (Abilify) 2 MG tablet Take 1 tablet by mouth 1 (one) time each day. 024 2024 Discontinued(M ed list cleanup (will not trigger notification to Pharmacy)) amLODIPine-valentino zepril (Lotrel) 10-40 MG capsuleIndicati ons:Essential hypertension Take 1 capsule by mouth Once per day. 30 capsule 11 024 2024 Discontinued(M ed list cleanup (will not trigger notification to Pharmacy)) chlorthalidone (Hygroton) 25 MG tabletIndicatio ns:Essential hypertension Take 1 tablet (25 mg) by mouth Once per day. 90 tablet 3 2024 Discontinued(M ed list cleanup (will not trigger notification to Pharmacy)) Lantus SoloStar 100 UNIT/ML penIndications: Type 2 diabetes mellitus with other specified complication, with long-term current use of insulin ([facility]) INJECT 14 UNITS SUBCUTANEOUSLY EVERY EVENING PER PRESCRIBER'S INSTRUCTIONS. 15 mL 1 024 2024 Discontinued(M ed list cleanup (will not trigger notification to Pharmacy)) Dulaglutide 0.75 MG/0.5ML solution auto-injectorIn dications:Type 2 diabetes mellitus with stage 3 chronic kidney disease, with long-term current use of insulin, unspecified whether stage 3a or 3b CKD ([facility]) Inject 0.75 mg under the skin 1 (one) time per week. 3 mL 1 025 2024 Discontinued(M ed list cleanup (will not trigger notification to Pharmacy)) insulin lispro (HumaLOG) 100 UNIT/ML injection Inject 4 unit(s) subcutaneously 3 times a day per sliding scale, Call if less than 70, 100 - 139 4 units 140 - 179 5 units 180 - 219 6 units 220 - 259 7 units 260 - 299 8 units Call if greater than 400 025 2024 Discontinued(R eorder (will not trigger notification to Pharmacy)) glucose blood (FreeStyle Precision Wiliam Test) test stripIndication s:Type 2 diabetes mellitus with other specified complication, with long-term current use of insulin ([facility]) Use to test blood sugar 3 times daily in case of CGM failure or extremes of BG 100 each 11 025 2024 Discontinued(R eorder (will not trigger notification to Pharmacy)) Active Problems Problem Noted Date Diagnosed Date Acute pancreatitis 11/15/2024 Acute kidney injury superimposed on CKD ([facility] ) 11/15/2024 Right foot pain 03/29/2024 Onychomycosis 03/29/2024 Resistant hypertension 01/04/2024 Assessment & Plan (10/05/2024 1:08 PM EST): I advised low-sodium diet I advised for her to check her blood pressure at home and keep a log come back in 2 weeks for nurse visit for blood pressure check I also asked her to bring her medications for now on to all her visits to clarify what she is taking or not Blood pressure today is elevated but patient is clinically asymptomatic Unstable gait 12/28/2023 Assessment & Plan (06/29/2024 [...] use of insulin 11/05/2022 Assessment & Plan (10/05/2024 1:09 PM EST): Diabetes is: controlled - Lab Results Component Value Date HGBA1C 6.9 (A) 06/29/2024 HGBA1C 10.2 (A) 03/29/2024 HGBA1C 7.3 (A) 12/28/2023 - Lab Results Component Value Date MICROALBUR 2.3 03/12/2022 CREATININE 0.98 09/16/2023 -Changes: None - Diabetic eye exam: Up-to-date - Diabetic foot exam: Up-to-date - Continue lifestyle modifications - Continue current medications - Follow up: 3 months Assessment & Plan (06/29/2024 12:20 PM EST): [...] Encounters Date Type Department Care Team Description 11/15/2024 9:30 AM EDT Office Visit [facility] [address] [place] [address] [phone] Lynette Gipson MD Type 2 diabetes mellitus with other specified complication, with long-term current use of insulin ([facility]); Acute pancreatitis, unspecified complication status, unspecified pancreatitis type; Acute kidney injury superimposed on CKD ([facility]) ([facility]); Essential hypertension; Type 2 diabetes mellitus with stage 3 chronic kidney disease, with long-term current use of insulin, unspecified whether stage 3a or 3b CKD (CMS/HCC) 11/15/2024 Refill [facility] [address] [place] [phone] Lynette Gipson MD Type 2 diabetes mellitus with other specified complication, with long-term current use of insulin (CMS/HCC) 11/15/2024 Travel 11/08/[address] [phone] Lynette Gipson MD order 10/08/[address] [address] Lynette Gipson MD Results 10/05/2024 10:00 AM EST Office Visit [address] [phone] Lynette Gipson MD Type 2 diabetes mellitus with stage 3 chronic kidney disease, with long-term current use of insulin, unspecified whether stage 3a or 3b CKD (CMS/HCC) (Primary Dx); Resistant hypertension 10/05/2024 Orders Only [address] [address] Lynette Gipson MD Stage 3b chronic kidney disease (CMS/HCC) (Primary Dx); Dyslipidemia associated with type 2 diabetes mellitus (CMS/HCC) ([facility]) 10/05/2024 Travel 09/28/[address] [address] Lynette Gipson MD Chart Prep 09/20/2024 Patient Outreach [address] [address] Lynette Gipson MD Pre-visit Planning ((Unable to reach for PVP screening, LVM)) from Last 3 Months Immunizations Name Administration Dates Next Due Influenza High-dose Quadrivalent Preservative Fr ee 06/21/2022 Influenza Quadrivalent Adjuvanted 06/08/2023 Influenza injectable quadrivalent preservative f ree 06/27/2020 Pfizer Covid-19 Vaccine 12+ 03/31/2022, Pfizer Covid-19 Vaccine 12+ mart-sucrose (Posadas Arely ap) 03/31/2022,03/10/2022 Pneumococcal Conjugate PCV 20 06/21/2022 [...] Sign Reading Time Taken Comments Blood Pressure 132/82 11/15/2024 9:37 AM EDT Pulse 102 11/15/2024 9:37 AM EDT Temperature 36 ??C (96.8 ??F) 11/15/2024 9:37 AM EDT Respiratory Rate 22 11/15/2024 9:37 AM EDT Oxygen Saturation 99% 03/29/2024 10:15 AM EDT Inhaled Oxygen Concentration - - Weight 56.5 kg (124 lb 9.6 oz) 11/15/2024 9:37 A M EDT Height 144.8 cm (4' 9 ) 11/15/2024 9:37 AM EDT Body Mass Index 26.96 11/15/2024 9:37 AM EDT Plan of Treatment Upcoming Encounters Date Type Department Care Team (Late st Contact Info) Description 01/02/2025 10:30 AM EDT Office Visit [facility] [address] [place] [address] Lynette Gipson MD [address], [place] [phone] Health Maintenance Due Date Last Done Comments CT Colonography 1956 Colonoscopy 1956 Colorectal Cancer Screening 1956 FIT DNA/Cologuard 1956 FIT 1956 FOBT 1956 Sigmoidoscopy 1956 DTaP/Tdap/Td Vaccines (1 - Tdap) 02/22/1975 Zoster Vaccines (1 of 2) 02/22/2006 RSV Patients and Patients Aged 60 years or older (1 - Risk 60-74 years 1-dose series) 2016 Mammogram 11/19/2022 11/19/2021 COVID-19 Vaccine ( season) 2024 03/31/2022, 03/31/2022, 03/10/2022, Additional history exists Influenza Vaccine (#1) 2024 3, 06/21/2022, 06/27/2020 Diabetes: Hemoglobin A1C 12/27/20242 024, 03/29/2024, 12/28/2023, Additional history exists Eye Exam 01/03/2025 01/03/2023, 12/14, 01/03/2023, Additional history exists Diabetes: Foot Exam 03/29/2025 03/29/2024, 11/08/2022, 11/08/2022 SDOH Screening 03/29/2025 03/29/2024 Alcohol/Substance Use Screening 06/29/2025 06/29/2024 Depression Screening 06/29/2025 06/29/2024, 06/29/20 24 Lipid Panel 10/05/2025 10/05/2024, 02/0 09/2023, 11/08/2022, Additional history exists Tobacco Screening 11/15/2025 11/15/2024 Pneumococcal Vaccine: 50+ Years Completed 06/21/2022 Hepatitis C Screening Completed 10/05/2024 HIB Vaccines Aged Out No longer eligi [...] Date/Time Associated Diagnosis Comments POCT GLUCOSE Routine 11/15/2024 9:36 AM EDT Type 2 diabetes mellitus with other specified complication, with long-term current use of insulin ([facility]) TSH W/REFLEX TO FT4 Routine 10/05/2024 1 0:42 AM EST Type 2 diabetes mellitus with stage 3 chronic kidney disease, with long-term current use of insulin, unspecified whether stage 3a or 3b CKD ([facility]) Resistant hypertension VITAMIN D,25-OH,TOTAL,IA Routine 10/05/2024 10:42 AM EST Type 2 diabetes mellitus with stage 3 chronic kidney disease, with long-term current use of insulin, unspecified whether stage 3a or 3b CKD (CMS/HCC) Resistant hypertension LIPID PANEL, STANDARD Routine 10/05/2024 10:42 AM EST Type 2 diabetes mellitus with stage 3 chronic kidney disease, with long-term current use of insulin, unspecified whether stage 3a or 3b CKD (CMS/HCC) Resistant hypertension HEPATITIS C AB W/REFL TO HCV RNA, QN, PCR Routine 10/05/2024 10:42 AM EST Type 2 diabetes mellitus with stage 3 chronic kidney disease, with long-term current use of insulin, unspecified whether stage 3a or 3b CKD (CMS/HCC) Resistant hypertension COMPREHENSIVE METABOLIC PANEL Routine 10/05/2024 10:42 AM EST Type 2 diabetes mellitus with stage 3 chronic kidney disease, with long-term current use of insulin, unspecified whether stage 3a or 3b CKD (CMS/HCC) Resistant hypertension CBC WITH AUTO DIFFERENTIAL Routine 10/05/2024 10:42 AM EST Type 2 diabetes mellitus with stage 3 chronic kidney disease, with long-term current use of insulin, unspecified whether stage 3a or 3b CKD (CMS/HCC) Resistant hypertension POCT GLUCOSE Routine 10/05/2024 10:02 AM EST Type 2 diabetes mellitus with stage 3 chronic kidney disease, with long-term current use of insulin, unspecified whether stage 3a or 3b CKD (CMS/HCC) POCT GLYCATED HEMOGLOBIN, TOTAL Routine 06/29/2024 10:20 AM EST Type 2 diabetes mellitus with other specified complication, with long-term current use of insulin (CMS/HCC) MAMMOGRAM GENERIC Routine 11/19/2021 3:3 0 PM EDT from Last 3 Months or Most Recently Relevant to Health Maintenance Results * POCT Glucose (11/15/2024 9:36 AM EDT) Only the most recent of2 resultswithin the time period is included. [facility] Glucose Blood, POC 106 60 - 200 mg/dL QC Media Lot # [id number] Lot# Expiration Date [id number] Blood Capillary blood specimen / Unknown 11/15/2024 9:36 AM EDT us Lynette Antonio MD POINT OF CARE TEST EN TER/EDIT ORDERABLES Final Result * Vitamin D, 25-Hydroxy, Total, Immunoassay (10/05/2024 10:42 AM EST) Vitamin D 25-OH Total 68.5 >30 ng/mL [facility] Comment:Health Based Referen ce Values*< 20 ng/mL Xdnxgpmfg66-74 ng/mL Insufficient> 30 ng/mL Sufficient*Jimy LAZCANO. N Engl J Med. 2007;357:266-280Care must be taken in interpreting Vitamin D results fromdifferent laboratories and methodologies. Published datademonstrated that results from patients undergoinghemodialysis may show a negative bias when tested withvarious automated 25-OH vitamin D assays when compared toLC-MS/MS.When testing samples from patients whose predominant form ofVitamin D is Vitamin D2, such as patients receiving VitaminD2 supplementation, results that are subtherapeutic shouldbe confirmed with another method such as LC-MS/MS. Blood Venous blood specimen / Unknown 10/05/2024 10:42 AM EST 10/05/2024 1:06 PM EST Result Bart Antonio MD LAB BLOOD ORDERABLES Final Result [facility] [address] [place] [phone] * TSH with Reflex to Free T4 (10/05/2024 10:42 AM EST) TSH reflex Free T4 1.47 0.32 - 4.0 uIU/mL [facility] Blood Venous blood specimen / Unknown 10/05/2024 10:42 AM EST 10/05/2024 1:06 PM EST us Lynette Antonio MD LAB BLOOD ORDERABLES Final Result [facility] [address] [place], [place] [phone] * (ABNORMAL) CBC auto differential (10/05/2024 10:42 AM EST) White Blood Count 12.1(H) 4.8 - 10.8 X10*3/uL [facility] Red Blood Count 4.76 4.20 - 5.50 X10*6/uL [facility] Hemoglobin 13.7 12.0 - 16.0 g/dl [facility] Hematocrit 40.6 37.0 - 47.0 % [facility] Mean Corpuscular Volume 85.3 80.0 - 98.0 fL [facility] Mean Corpuscular Hemoglobin 28.8 27.0 - 33.0 pg [facility] Mean Corpuscular HGB Conc 33.7 31.0 - 35.0 g/dl [facility] Red Cell Distribution Width 13.6 11.0 - 16.0 % [facility] Platelet Count 259 160 - 400 X10*3/uL [facility] Mean Platelet Volume 11.3 9.4 - 12.3 fL [facility] Neutrophils Percent Auto 60.7 45 - 73 % [facility] Imm Gran Pct Auto 0.7(H) 0.0 - 0.4 % [facility] Lymphocytes Percent Auto 30.3 20 - 40 % [facility] Monocytes Percent Auto 5.5 2 - 11 % [facility] Eosinophils Percent Auto 2.1 0 - 4 % [facility] Basophils Percent Auto 0.7 0 - 2 % [facility] NRBC Pct Auto 0.0 0.0 - 0.2 /100WBC [facility] Neutrophils Absolute Auto 7.4 2.0 - 8.3 x10*3/uL [facility] Imm Gran Abs Auto 0.09(H) 0.00 - 0.03 X10*3/uL [facility] Lymphocytes Absolute Auto 3.7 1.2 - 4.9 X10*3/uL [facility] Monocytes Absolute Auto 0.7 0.1 - 1.2 X10*3/uL [facility] Eosinophils Absolute Auto 0.3 0.0 - 0.4 X10*3/uL [facility] Basophils Absolute Auto 0.1 0.0 - 0.2 X10*3/uL [facility] NRBC Abs Auto 0.000 0.0 - 0.012 X10*3/uL [facility] Blood Venous blood specimen / Unknown 10/05/2024 10:42 AM EST 10/05/2024 1:06 PM EST us Lynette Antonio MD LAB BLOOD ORDERABLES Final Result Performing Organization Address [facility] [address] [facility] Co de Phone Number [facility] [address] [place] [phone] * Hepatitis C Antibody with Reflex to HCV, RNA, Quantitative, Real-Time PCR (10/05/2024 10:42 AM EST) Pathologist [facility] Hepatitis C Antibody Nonreactive Nonreactive [facility] Comment:Antibodies to HCV no t detected; does not exclude early acuteHCV infection. Blood Venous blood specimen / Unknown 10/05/2024 10:42 AM EST 10/05/2024 1:06 PM EST us Lynette Antonio MD LAB BLOOD ORDERABLES Final Result Performing Organization Address [facility] [address]/[facility] Co de Phone Number [facility] [address] [place] [phone] * (ABNORMAL) Lipid Panel, Standard (10/05/2024 10:42 AM EST) Triglycerides 941(H) <150 mg/dL [facility] Comment:Slight Lipemia.Adonay able Triglyceride: less than 150 mg/dLBorderline High Triglyceride 150-199 mg/dLHigh Triglyceride: 200-499 mg/dLVery High Triglyceride: greater than or equal to 5OO mg/dL Cholesterol 259(H) <200 mg/dL [facility] Comment:Desirable Cholestero l: less than 200 mg/dLBorderline High Cholesterol: 200-239 mg/dLHigh Cholesterol: greater than 239 mg/dL LDL Cholesterol Calculated TNP <100 mg/dL [facility] Comment:Unable to calculate the LDL. The formula of Friedwald,Valente, and Ish is only valid if the triglycerides areless than 400 mg/dl. HDL Cholesterol 38(L) >40 mg/dL [facility] Comment:Desirable HDL: great er than 40 mg/dL Note: This HDL assay may give artificially low results in patients with liver disease. Blood Venous blood specimen / Unknown 10/05/2024 10:42 AM EST 10/05/2024 1:06 PM EST Lynette Antonio MD LAB BLOOD ORDERABLES Final Result [facility] [address] [place] [phone] * (ABNORMAL) Comprehensive Metabolic Panel (10/05/2024 10:42 AM EST) Sodium 138 135 - 145 mmol/L [facility] Potassium 3.5 3.3 - 5.1 mmol/L [facility] Chloride 103 96 - 108 mmol/L [facility] Carbon Dioxide 21(L) 22 - 29 mmol/L [facility] Anion Gap 18 12 - 20 [facility] Urea Nitrogen (BUN) 24(H) 9 - 16 mg/dL [facility] Creatinine, Serum 1.28 0.5 - 1.4 mg/dL [facility] Estimated Glomerular Filt Rate 41 [facility] Comment:Chronic Kidney Disea se: Estimated GFR < 60 mL/min/1.62f8Aniixk Kidney Disease: Estimated GFR < 15 mL/min/1.73m2 Glucose 208(H) 60 - 115 mg/dL [facility] Calcium 10.1 8.4 - 10.2 mg/dL [facility] Bilirubin, Total 0.8 0.0 - 1.0 mg/dL [facility] Aspartate Amino Transferase 42(H) 5 - 31 U/L [facility] Alanine Aminotransferase 42(H) 0 - 31 U/L [facility] Total Protein 9.4(H) 6.5 - 8.0 g/dL [facility] Albumin Level 4.6 3.5 - 5.0 g/dL [facility] Alkaline Phosphatase 137(H) 39 - 117 U/L [facility] Blood Venous blood specimen / Unknown 10/05/2024 10:42 AM EST 10/05/2024 1:06 PM EST Lynette Antonio MD LAB BLOOD ORDERABLES Final Result [facility] [address] [place] [phone] * (ABNORMAL) POCT HGB A1C (06/29/2024 10:20 AM EST) Hemoglobin A1C 6.9(A) 4.0 - 6.0 % QC Media Lot # [id number] Lot# Expiration Date [id number] Blood 06/29/2024 10:2 0 AM EST Result Bart Antonio MD POINT OF CARE TEST EN TER/EDIT ORDERABLES Final Result * Mammography Report 1 (11/19/2021 3:30 PM EDT) Anatomical Region Laterality Modality Breast Bilateral Mammography 11/19/2021 3:30 PM EDT Narrative 12/02/2021 7:38 AM EDT Refer to the Notes tab for result details [facility] Procedure: Mammography Report 1 Procedure Note ProviderDavid MD - 11/07/2022 Refer to the Notes tab for result details [facility] Procedure: Mammography Report 1 us Lynette Antonio MD IMG BI PROCEDURES Fin al Result from Last 3 Months or Most Recently Relevant to Health Maintenance Insurance - [employer] Care Teams Cardiac Care Nurse Relationship Specialty Start Date End Date Lynette Gipson MD [address] [place] [phone] PCP - General Family Medicine 09/24/20
--- OUTSIDE RECORDS SUMMARY | 2024-11-15 11:13 | XMS_ITS | Encounter Summary ---
Author Organization [employer] Address [address] [place] [address] Care Team Providers Care Construction Checker Name Role Phone Lynette Gipson MD Primary Care Provide r Encounter Details Date Type Department Care Team (Latest Contact Info) Description 11/15/2024 Travel Social History Tobacco Use Types Packs/Day [...] Description 01/02/2025 10:30 AM EDT Office Visit [facility] [address] [place] [address] Lynette Gipson MD [address] [place] [phone] documented as of this encounter Visit Diagnoses Not on filedocumented in this encounter Additional Health Concerns Assessment Noted Time PHQ-9 Depression Total Score: 0 06/29/20 24 10:24 AM EST documented as of this encounter Care Teams Construction Checker Relationship Specialty Start Date End Date Lynette Gipson MD [address] [place] [phone] PCP - General Family Medicine 09/24/20 documented as of this encounter
--- OUTSIDE RECORDS SUMMARY | 2024-11-15 11:13 | XMS_ITS | Encounter Summary ---
Author Organization [facility] Address [address] [place] [address] Phone Care Team Providers Care Roll Over Loader Name Role Phone Lynette Gipson MD Primary Care Provide r Encounter Details Date Type Department Care Team (Late st Contact Info) Description 07/21/2022 Documentation Only [facility] [place], [address] [place] [phone] Miguel Johnston PA Social History Tobacco Use [...] Care Team (Late st Contact Info) Description 12/25/2024 4:00 PM EDT Office Visit [facility] [address] [phone] Colin Easton MD [address] [phone] documented as of this encounter Visit Diagnoses Not on filedocumented in this encounter Care Teams Roll Over Loader Relationship Specialty Start Date End Date Lynette Gipson MD [address] [place] [phone] PCP - General Internal Medicine 10/16/24 documented as of this encounter
--- OUTSIDE RECORDS SUMMARY | 2024-11-15 11:13 | XMS_ITS | Clinical Summary ---
Author Organization [facility] Address [address] [place] [address] Phone Care Team Providers Care Agricultural Produce Washer Name Role Phone Lynette Giposn MD Primary Care Provide r Allergies No [...] time each day Active ergocalciferol 1.25 MG (71236 UT) capsule TAKE 1 CAPSULE (50,000 UNITS [...] Orientation Not on file Plan of Treatment Upcoming Encounters Date Type Department Care Team ([facility] st Contact Info) Description 12/25/2024 4:00 PM EDT Office Visit [facility] [address] [place] [phone] Colin Easton MD [address] [place] [address] Health Maintenance Due Date Last Done Comments Breast Cancer Screening 1955 Colorectal Cancer Screening: Annual FOBT 02/22/2005 Colorectal Cancer Screening: Colonoscopy 02/22/2005 Colorectal Cancer Screening: Sigmoidoscopy 02/22/2005 Diabetes: Ophthalmology Exam 08/06/2020 Diabetes: Pedal Pulse Checked 08/06/2020 Diabetes: Sensory Foot Exam 08/06/2020 Diabetes: Visual Foot Exam 08/06/2020 Influenza Vaccine (#1) 2024 3, 06/27/2020 Diabetes: Hemoglobin A1C 09/29/2024 06/29/2024 Pneumococcal Vaccine: 65+ Years Completed 06/21/2022 Hepatitis B Vaccine Aged Out No longe r eligible based on patient's age to complete this topic Insurance MEDICAID [place] [facility] ([id number]) ANTON[place] ARIAS [phone] Care Teams Agricultural Produce Washer Relationship Specialty Start Date End Date Lynette Gipson MD [address] [place] [phone] PCP - General Internal Medicine 10/16/24
--- OUTSIDE RECORDS SUMMARY | 2024-11-15 11:13 | XMS_ITS | Clinical Summary ---
Author Organization [facility] ity Address [address] [place] [address] Care Team Providers Care Encephalographer Name Role Phone Unavailable Primary Care Provider [...] 2024 Influenza Vaccine (#1) 2024 RSV Immunization Adult Patie nts (1 - 1-dose 75+ series) 02/22/2031 HIB [...] PM EDT Narrative 11/25/2017 4:[address] [facility] Diagnostic Imaging Department [address] [place] [address] Patient: ??MADELEINE JIMÉNEZ ?/Age/Sex: 1955 - 62 - F Unit#: ??[id number] ? Location/Status: ??SPDIMAM/REG CLI ? Mnemonic/Ordering Site: [...] for the next mammogram: ??CPT II 7025F [id number] Dictating Physician: ??MAG MULLINS MD Electronically Signed by: ??MAG MULLINS MD Dic Date/Time: ??11/25/17 1261 Sign date/Time: ??11/25/17 1608 Procedure Note Mag Mullins MD - 08/03/2022 [facility] Diagnostic Imaging Department [address] [place] [address] Patient: JIMÉNEZMADELEINEO.B./Age/Sex: 1955 - 62 - F Unit#: [id number] Location/Status: SPDIMAM/REG CLI Mnemonic/Ordering Site: [facility] Ordering Physician: EVA DOMÍNGUEZ DO German Screening [...] for the next mammogram: CPT II 7025F [id number] Dictating Physician: MAG MULLINS MD Electronically Signed by: MAG MULLINS MD Dic Date/Time: 11/25/17 1557 Sign date/Time: 11/25/17 1605 Eva Domínguez DO IMG BI PROCEDURES Final Res ult from Last 3 Months or Most Recently Relevant to Health Maintenance Advance Directives Documents on File Type Date Recorded Patient Hay Stacker Operator Expl anation Health Care Decision (hx) 06/01/2023 AD SMITH DIRECTIVE Health Care Decision (hx) 06/01/2023 AD SMITH DIRECTIVE
--- OUTSIDE RECORDS SUMMARY | 2024-11-15 11:13 | XMS_ITS | Encounter Summary ---
Author Organization [employer] Address [address] [place] [address] Care Team Providers Care Burr Bench Hand Name Role Phone Lynette Gipson MD Primary Care Provide r Reason for Visit * Reason Comments Med Change Request Encounter Details Date Type Department Care Team ([facility] st Contact Info) Description 11/15/2024 Refill [facility] [address] [place], [place] [phone] Lynette Gipson MD [address] [place] [address] Type 2 diabetes mellitus with other specified complication, with long-term current use of insulin ([facility]) Social History Tobacco Use Types Packs/Day Years [...] Description 01/02/2025 10:30 AM EDT Office Visit [facility] [address] [place] [address] Lynette Gipson MD [address] [place] [address] documented as of this encounter Visit Diagnoses Diagnosis Type 2 diabetes mellitus with other specified complication, with long-term current use of insulin ([facility]) documented in this encounter Additional Health Concerns Assessment Noted Time PHQ-9 Depression Total Score: 0 06/29/20 24 10:24 AM EST documented as of this encounter Care Teams Burr Bench Hand Relationship Specialty Start Date End Date Lynette Gipson MD [address] [place] [address] PCP - General Family Medicine 09/24/20 documented as of this encounter
--- OUTSIDE RECORDS SUMMARY | 2024-11-15 11:13 | XMS_ITS | Encounter Summary ---
Author Organization [employer] Address [address] [place] [address] 7t [place] [address] Care Team Providers Care Automobile Body Worker Name Role Phone Lynette Gipson MD Primary Care Provide r Reason for Referral * Medications - Closed Specialty Diagnoses / Procedures Referred By Portia aldana Referred To Contact Diagnoses Type 2 diabetes mellitus with other specified complication, with long-term current use of insulin (CMS/HCC) Lynette Gipson MD [address] [place] [address] Phone: tel: fax: Referral ID Status Reason Start Date Expiration Date Visits Re quested Visits Authorized [id number] Closed 1 1 * Medications - Closed Specialty Diagnoses / Procedures Referred By Portia aldana Referred To Contact Diagnoses Type 2 diabetes mellitus with other specified complication, with long-term current use of insulin (CMS/HCC) Lynette Gipson MD [address] [place] [address] Phone: tel: fax: Referral ID Status Reason Start Date Expiration Date Visits Re quested Visits Authorized [id number] Closed 1 1 * Consultation (Routine) - Authorized Specialty Diagnoses / Procedures Referred By Portia aldana Referred To Contact Pharmacy Diagnoses Type 2 diabetes mellitus with other specified complication, with long-term current use of insulin (CMS/HCC) Essential hypertension Lynette Gipson MD [address] [place] [address] Phone: tel: fax: Referral ID Status Reason Start Date Expiration Date Visits Requested Visits Authorized [id number] Authorized Consult and Treat 11/15/2024 11/15/2025 6 6 * Consultation (Routine) - Authorized Specialty Diagnoses / Procedures Referred By Conttequila t Referred To Contact Nutrition Diagnoses Type 2 diabetes mellitus with other specified complication, with long-term current use of insulin (CMS/HCC) Lynette Gipson MD [address] [place] [address] Phone: tel: fax: Referral ID Status Reason Start Date Expiration Date Visits Requested Visits Authorized [id number] Authorized Specialty Services Required 11/15/2024 11/15/2025 1 1 Encounter Details Date Type Department Care Team (Late st Contact Info) Description 11/15/2024 9:30 AM EDT Office Visit [facility] [address] [place] [phone] Lynette Gipson MD [address] [place] [address] Type 2 diabetes mellitus with other specified complication, with long-term current use of insulin (CMS/HCC); Acute pancreatitis, unspecified complication status, unspecified pancreatitis type; Acute kidney injury superimposed on CKD (CMS/HCC) (CMS/HCC); Essential hypertension; Type 2 diabetes mellitus with stage 3 chronic kidney disease, with long-term current use of insulin, unspecified whether stage 3a or 3b CKD (CMS/HCC) Social History Tobacco Use Types Packs/Day Years [...] 22 11/15/2024 9:37 AM EDT Oxygen Saturation - - Inhaled Oxygen Concentration - - Weight 56.5 kg (124 lb 9.6 oz) 11/15/2024 9:37 A M EDT Height 144.8 cm (4' 9 ) 11/15/2024 9:37 AM EDT Body Mass Index 26.96 11/15/2024 9:37 AM EDT documented in this encounter Plan of Treatment Upcoming Encounters Date Type Department Care Team (Late st Contact Info) Description 01/02/2025 10:30 AM EDT Office Visit [facility] [address] [place] [address] Lynette Gipson MD [address] [place] [address] Scheduled Orders Name Type Priority Associated Diagnoses Orde r Schedule Basic Metabolic Panel Lab Routine Acute kidney injury superimposed on CKD (CMS/HCC) ([facility]/HCC) Expected: 11/15/2024 (Approximate), Expires: 11/15/2025 Magnesium Lab Routine Acute kidney injury superimposed on CKD (CMS/HCC) (CMS/HCC) Expected: 11/15/2024, Expires: 11/15/2025 Phosphate (As Phosphorus) Lab Routine Acute kidney injury superimposed on CKD (CMS/HCC) ([facility]/HCC) Expected: 11/15/2024, Expires: 11/15/2025 Lipid Panel, Standard Lab Routine Acute pancreatitis, unspecified complication status, unspecified pancreatitis type Expected: 11/15/2024 (Approximate), Expires: 11/15/2025 Scheduled Referrals Name Type Priority Associated Diagnoses Orde r Schedule Referral to Nutrition Services, Internal Outpatient Referral Routine Type 2 diabetes mellitus with other specified complication, with long-term current use of insulin (CMS/[facility]) Expected: 11/15/2024 (Approximate), Expires: 11/15/2025 Referral to Pharmacy CDTM Outpatient Referral Routine Type 2 diabetes mellitus with other specified complication, with long-term current use of insulin ([facility]) Essential hypertension Ordered: 11/15/2024 documented as of this encounter Procedures Procedure Name Priority Date/Time Associated Diagnosis Comments POCT GLUCOSE Routine 11/15/2024 9:36 AM EDT Type 2 diabetes mellitus with other specified complication, with long-term current use of insulin ([facility]) documented in this encounter Results * POCT Glucose (11/15/2024 9:36 AM EDT) [facility] Glucose Blood, POC 106 60 - 200 mg/dL QC Media Lot # [id number] Lot# Expiration Date [id number] Blood Capillary blood specimen / Unknown 11/15/2024 9:36 AM EDT Lynette Antonio MD POINT OF CARE TEST EN TER/EDIT ORDERABLES Final Result documented in this encounter Visit Diagnoses Diagnosis Type 2 diabetes mellitus with other specified complication, with long-term current use of insulin ([facility]) Acute pancreatitis, unspecified complication status, unspecified pancreatitis type Acute kidney injury superimposed on CKD (CMS/HCC) ([facility]) Essential hypertension Unspecified essential hypertension Type 2 diabetes mellitus with stage 3 chronic kidney disease, with long-term current use of insulin, unspecified whether stage 3a or 3b CKD (CMS/HCC) documented in this encounter Additional Health Concerns Assessment Noted Time PHQ-9 Depression Total Score: 0 06/29/20 24 10:24 AM EST documented as of this encounter Care Teams Automobile Body Worker Relationship Specialty Start Date End Date Lynette Gipson MD [address] [place] [phone] PCP - General Family Medicine 09/24/20 documented as of this encounter
[2024-11-15 12:06] LABS: Anion Gap 13 (12-20); Blood Urea Nitrogen 14 mg/dL (9-16); Calcium 9.4 mg/dL (8.4-10.2); Carbon Dioxide 23 mmol/L (22-29); Chloride 110 mmol/L (96-108); Cholesterol 185 mg/dL (<200); Estimated Glomerular Filt Rate 42; Glucose Random 76 mg/dL (60-115); HDL Cholesterol 28 mg/dL (>40); Magnesium 1.6 mg/dL (1.6-2.6); Phosphorus 1.3 mg/dL (2.7-4.5); Potassium 3.4 mmol/L (3.3-5.1); Sodium 143 mmol/L (135-145); Triglycerides 437 mg/dL (<150)
== END 2024-11-15 10:20 | disposition home or self-care (01) ==
LOC: HO.HHCL 10:19
PROVIDERS: Visit Provider Internal Medicine
DX: N17.9 Acute kidney failure, unspecified (principal); N18.9 Chronic kidney disease, unspecified; K85.90 Acute pancreatitis without necrosis or infection, unspecified
CPT/HCPCS: 36415; 80048; 80061; 83735; 84100

== ENCOUNTER 2025-01-02 10:22 | Outpatient (REF) | payer OTHER, SELFPAY ==
[2025-01-02 11:48] LABS: Anion Gap 16 (12-20); Blood Urea Nitrogen 22 mg/dL (9-16); Calcium 9.6 mg/dL (8.4-10.2); Carbon Dioxide 22 mmol/L (22-29); Chloride 105 mmol/L (96-108); Estimated Glomerular Filt Rate 37; Glucose Random 135 mg/dL (60-115); Phosphorus 2.3 mg/dL (2.7-4.5); Potassium 3.9 mmol/L (3.3-5.1); Sodium 139 mmol/L (135-145)
--- OUTSIDE RECORDS SUMMARY | 2025-01-02 11:53 | XMS_ITS | Encounter Summary ---
Author Organization [employer] Address [address] [place] [address] Care Team Providers Care Car Cleaner Name Role Phone Lynette Gipson MD Primary Care Provide r Angelo Dahl PharmD Unavailable [phone] Reason for Visit * Reason Comments Med Refill Encounter Details Date Type Department Care Team (Late st Contact Info) Description 12/29/2024 Refill [facility] [address] [place], [place] [phone] Lynette Gipson MD [address] [place], [place] [phone] Type 2 diabetes mellitus with other specified complication, with long-term current use of insulin ([facility]) Social History Tobacco Use Types Packs/Day Years [...] Care Team (Late st Contact Info) Description 01/08/2025 11:30 AM EDT Telemedicine [facility] [address] [place] [address] Angelo Dahl, PharmD [address] [place] [address] 04/04/2025 10:45 AM EDT Office Visit [facility] [address] [place] [address] Lynette Gipson MD [address] [place] [address] documented as of this encounter Visit Diagnoses Diagnosis Type 2 diabetes mellitus with other specified complication, with long-term current use of insulin ([facility]) documented in this encounter Additional Health Concerns Assessment Noted Time PHQ-9 Depression Total Score: 0 06/29/20 24 10:24 AM EST documented as of this encounter Care Teams Car Cleaner Relationship Specialty Start Date End Date Lynette Gipson MD [address] [place] [phone] PCP - General Family Medicine 09/24/20 Angelo Dahl, CaroD [address] [place] [phone] Pharmacist Internal Medicine 11/21/24 [facility] 11/09/24 documented as of this encounter
--- OUTSIDE RECORDS SUMMARY | 2025-01-02 11:53 | XMS_ITS | Clinical Summary ---
Author Organization [facility] ity Address [address] [place] [address] Care Team Providers Care Sales Agent Name Role Phone Unavailable Primary Care Provider [...] - 2023-2 5 season) 2024 Influenza Vaccine (Season Ended) 2025 RSV Immunization Adult Patie nts (1 - [...] age to complete this topic Meningococcal B Vaccine Aged Out No l onger eligible based on patient's age to complete this topic RSV Immunization Patients Un porsha 20 months Aged Out No longer eligible b ased on patient's age to complete this topic Varicella Vaccines Aged Out No longer eligible based on patient's age to complete this topic Procedures Procedure Name Priority Date/Time Associated Diagnosis Comments [facility] SCREENING DIGITAL Routine 11/25/2017 4:05 PM EDT Encounter for screening mammogram for malignant neoplasm of breast from Last 3 Months or Most Recently Relevant to Health Maintenance Results * [facility] SCREENING DIGITAL (11/25/2017 4:05 PM EDT) Anatomical Region Laterality Modality Mammography 11/25/2017 12:5 2 PM EDT Narrative 11/25/2017 4:05 PM EDT [facility] Diagnostic Imaging Department [address] [place] [address] Patient: ??MADELEINE JIMÉNEZ ?/Age/Sex: 1955 - 62 - F Unit#: ??[id number] ? Location/Status: ??SPDIMAM/REG CLI ? Mnemonic/Ordering Site: [...] for the next mammogram: ??CPT II 7025F [id number] Dictating Physician: ??MAG MULLINS MD Electronically Signed by: ??MAG MULLINS MD Dic Date/Time: ??11/25/17 4069 Sign date/Time: ??11/25/17 1607 Procedure Note Mag Mullins MD - 08/03/2022 [facility] Diagnostic Imaging Department [address] [place], [place] [phone] Patient: JIMÉNEZMADELEINE D.O.B./Age/Sex: 1955 - 62 - F Unit#: [id number] Location/Status: SPDIMAM/REG CLI Mnemonic/Ordering Site: [facility] Ordering Physician: EVA DOMÍNGUEZ DO [...] for the next mammogram: CPT II 7025F [id number] Dictating Physician: MAG MULLINS MD Electronically Signed by: MAG MULLINS MD Dic Date/Time: 11/25/17 1557 Sign date/Time: 11/25/17 160 Eva Domínguez DO IMG BI PROCEDURES Final Res ult from Last 3 Months or Most Recently Relevant to Health Maintenance Advance Directives Documents on File Type Date Recorded Patient Physical Metallurgist Expl anation Health Care Decision (hx) 06/01/2023 AD SMITH DIRECTIVE Health Care Decision (hx) 06/01/2023 AD SMITH DIRECTIVE
--- OUTSIDE RECORDS SUMMARY | 2025-01-02 11:53 | XMS_ITS | Encounter Summary ---
Author Organization [employer] Address [address] [place] [address] Care Team Providers Care Fast Food Worker Name Role Phone Lynette Gipson MD Primary Care Provide r Angelo Dahl PharmD Unavailable [phone] Reason for Visit * Reason Onset Date Comments chart prep 01/01/2025 Encounter Details Date Type Department Care Team ([facility] st Contact Info) Description 01/01/2025 Telephone [facility] [address] [place], [place] [phone] Lynette Gipson MD [address] [place] [address] chart prep Social History Tobacco Use Types Packs/Day Years Used Date Smoking Tobacco: Never Passive Smoke Exposure: Never Smokeless Tobacco: Never Alcohol Use Standard Drinks/Week Comments Never 0 (1 standard drink = 0.6 oz pur e alcohol) Depression Answer Date Recorded Patient Health Questionnaire-9 Score 0 01/02/2025 Patient Health Questionnaire-9 Score 0 01/02/2025 Last PHQ-9: Questionnaire Data Not on file 0 01/02/2025 Housing Stability Answer Date Recorded What is your housing situation today? I have teri sing 03/29/[address] you li [...] Date Recorded Patient Health Questionnaire-2 Score 0 01/02/2025 Internet Access Answer Date Recorded Internet Access [...] encounter Miscellaneous Notes * Telephone Encounter - Mari Salmon [place] - 01/01/2025 1:53 PM EDT Chart Prep Labs: done Images: not applicable Referrals: complete Vaccines due: Covid, Tdap, RSV, and Zoster Screenings: mammogram ( no show to mammo 2022) Overdue care gaps: Glucose, SDOH, PHQ-9, KLAUS-7, and Tobacco documented in this encounter Plan of Treatment Upcoming Encounters Date Type Department Care Team (Late st Contact Info) Description 01/08/2025 11:30 AM EDT Telemedicine [facility] MED[facility] [address] [place] [phone] Angelo Dahl, PharmD [address] [place] [address] 04/04/2025 10:45 AM EDT Office Visit [facility] [address] [place] [address] Lynette Gipson MD [address] [place], [place] [phone] documented as of this encounter Visit Diagnoses Not on filedocumented in this encounter Additional Health Concerns Assessment Noted Time PHQ-9 Depression Total Score: 0 06/29/20 24 10:24 AM EST documented as of this encounter Care Teams Fast Food Worker Relationship Specialty Start Date End Date Lynette Gipson MD [address] [place], [place] [phone] PCP - General Family Medicine 09/24/20 Angelo Dahl, CaroD [address] [place] [address] Pharmacist Internal Medicine 11/21/24 [facility] 11/09/24 documented as of this encounter
--- OUTSIDE RECORDS SUMMARY | 2025-01-02 11:53 | XMS_ITS | Encounter Summary ---
Author Organization [employer] Address [address] [place] [address] Care Team Providers Care Government Guard Name Role Phone Lynette Gipson MD Primary Care Provide r Angelo Dahl PharmD Unavailable [phone] Encounter Details Date Type Department Care Team ([facility] st Contact Info) Description 06/21/2024 Community Care Management [facility] [address] [place] [address] [employer] Link, Physician, MD Social History Tobacco Use Types Packs/Day Years Used Date Smoking Tobacco: Never Passive Smoke Exposure: Never Smokeless Tobacco: Never Depression Answer Date Recorded Patient Health Questionnaire-9 Score 0 12/28/2023 Patient Health Questionnaire-9 Score 0 12/28/2023 Last PHQ-9: Questionnaire Data Not on file 0 12/28/2023 Housing Stability Answer Date Recorded What is your housing situation today? I have terijesusita mark 03/29/[address] you [...] t he electric, gas, oil or water [employer] threatened to shut off services in your [...] Info) Description 01/08/2025 11:30 AM EDT Telemedicine [facility] [address] [place] [address] Angelo Dahl, Cleo [address] [place] [address] 04/04/2025 10:45 AM EDT Office Visit [facility] [address] [place] [address] Lynette Gipson MD [address] [place] [address] documented as of this encounter Visit Diagnoses Not on filedocumented in this encounter Additional Health Concerns Assessment Noted Time PHQ-9 Depression Total Score: 0 12/28/19 24 10:29 AM EDT documented as of this encounter Care Teams Government Guard Relationship Specialty Start Date End Date Lynette Gipson MD [address] [place] [phone] PCP - General Family Medicine 09/24/20 Angelo Dahl, CaroD [address] [place] [address] [phone] Pharmacist Internal Medicine 11/21/24 [facility] 11/09/24 documented as of this encounter
--- OUTSIDE RECORDS SUMMARY | 2025-01-02 11:53 | XMS_ITS | Encounter Summary ---
Author Organization [employer] Address [address] [place] [address] Care Team Providers Care Claim Approver Name Role Phone Lynette Gipson MD Primary Care Provide r Angelo Dahl PharmD Unavailable [phone] Encounter Details Date Type Department Care Team (Latest Contact Info) Description 01/02/2025 Travel Social History Tobacco Use Types Packs/Day [...] AM EDT documented as of this encounter Functional Status * Over the past 2 weeks, how often have you been bothered by any of the following problems? Question Answer Date of Assessment Author Patient Health Questionnaire -2 Score 0 01/02/2025 9:51 AM EDT Candelaria Valdez MA * Little interest or pleasure in doing things Answer Date of Assessment Author Not at all 01/02/2025 9:51 AM EDT Abdirahman Valdez MA * Feeling down, depressed, or hopeless Answer Date of Assessment Author Not at all 01/02/2025 9:51 AM EDT Abdirahman Valdez MA * Trouble falling or staying asleep, or sleeping too much Answer Date of Assessment Author Not at all 01/02/2025 9:51 AM EDT Abdirahman Valdez MA * Feeling tired or having little energy Answer Date of Assessment Author Not at all 01/02/2025 9:51 AM EDT Abdirahman Valdez MA * Poor appetite or overeating Answer Date of Assessment Author Not at all 01/02/2025 9:51 AM EDT Abdirahman Valdez MA * Feeling bad about yourself - or that you are a failure or have let yourself or your family down Answer Date of Assessment Author Not at all 01/02/2025 9:51 AM EDT Abdirahman Valdez MA * Trouble concentrating on things, such as reading the newspaper or watching television Answer Date of Assessment Author Not at all 01/02/2025 9:51 AM EDT Abdirahman Valdez MA * Moving or speaking so slowly that other people could have noticed? Or the opposite - being so fidgety or restless that you have been moving around a lot more than usual. Answer Date of Assessment Author Not at all 01/02/2025 9:51 AM EDT Abdirahman Valdez MA * Thoughts that you would be better off or hurting yourself in some way Answer Date of Assessment Author Not at all 01/02/2025 9:51 AM EDT Abdirahman Valdez MA * Patient Health Questionnaire-9 Score Answer Date of Assessment Author 0 01/02/2025 9:51 AM EDT Abdirahman Valdez MA * Over the last 2 weeks, how often have you been bothered by any of the following problems? Question Answer Date of Assessment Author Feeling nervous, anxious, or on edge 1 01/02/2025 9:52 AM EDT Candelaria Valdez MA Not being able to stop or co ntrol worrying 0 01/02/2025 9:52 AM EDT Candelaria Valdez MA Worrying too much about diff erent things 0 01/02/2025 9:52 AM EDT Candelaria Valdez MA Trouble relaxing 0 01/02/2025 9:52 AM EDT Candelaria James MA Being so restless that it is hard to sit still 0 01/02/2025 9:52 AM EDT Candelaria Valdez MA Becoming easily annoyed or irritable 0 01/02/2025 9:52 AM EDT Candelaria Valdez MA Feeling afraid as if somethi ng awful might happen 0 01/02/2025 9:52 AM EDT Candelaria Valdez MA KLAUS-7 Total Score 1 01/02/2025 9:52 AM EDT Candelaria Valdez MA documented as of this encounter Plan of Treatment Upcoming Encounters Date Type Department Care Team (Late st Contact Info) Description 01/08/2025 11:30 AM EDT Telemedicine [facility] [address] [place] [address] Angelo Dahl, PharmD [address] [place] [address] 04/04/2025 10:45 AM EDT Office Visit [facility] [address] [place] [address] Lynette Gipson MD [address] [place] [address] documented as of this encounter Visit Diagnoses Not on filedocumented in this encounter Additional Health Concerns Assessment Noted Time PHQ-9 Depression Total Score: 0 01/03/20 9:51 AM EDT documented as of this encounter Care Teams Claim Approver Relationship Specialty Start Date End Date Lynette Gipson MD [address], [place] [phone] PCP - General Family Medicine 09/24/20 Angelo Dahl, CaroD [address] [place] [id number] Pharmacist Internal Medicine 11/21/24 [facility] 11/09/24 documented as of this encounter
--- OUTSIDE RECORDS SUMMARY | 2025-01-02 11:53 | XMS_ITS | Clinical Summary ---
Author Organization [facility] Address [address] [place] [address] Phone Care Team Providers Care Contract Writer Name Role Phone Lynette Gipson MD Primary [...] time each day Active ergocalciferol 1.25 MG (01746 UT) capsule TAKE 1 CAPSULE (50,000 UNITS [...] Stage 3a chronic kidney disease 07/27/2021 07/22/2022 Immunizations Immunization Administration Dates Next Due Influenza Vaccine, Quadrivalent, Adjuvanted 05/16 Influenza, Quadrivalent, Preservative Free 06/27 Pfizer SARS-COV-2 03/31/2022,03/10/2022 Pneumococcal Conjugate Pcv 20 06/21/2022 Social History Tobacco Use Types Packs/Day Years [...] Exam 08/06/2020 Diabetes: Visual Foot Exam 08/06/2020 Diabetes: Hemoglobin A1C 02/20/2025 025, 06/29/2024 Influenza Vaccine (Season Ended) 2025 06/08/2023, 06/27/2020 Pneumococcal Vaccine: 50+ Years Completed 06/21/2022 Pneumococcal Vaccine: Peds ( 0 to 5 Years) and At-Risk Patients (6 to 49 Years) Discontinued 06/21/2022 Hepatitis B Vaccine Aged Out No longe r eligible based on patient's age to complete this topic Insurance Medicaid [place] [facility] ([id number]) ANTONIA ARIAS [id number] Care Teams Contract Writer Relationship Specialty Start Date End Date Lynette Gipson MD [address] [place] [phone] PCP - General Internal Medicine 10/16/24
--- OUTSIDE RECORDS SUMMARY | 2025-01-02 11:53 | XMS_ITS | Clinical Summary ---
Author Organization [employer] Address [address] [facility] [address] [place] [address] Care Team Providers Care Route Contractor Name Role Phone Lynette Gipson MD Primary Care Provide r Angelo Dahl PharmD Unavailable [phone] Allergies No known active allergies Medications ergocalciferol (Vitamin D2) 1.25 MG (12563 UT) capsule TAKE 1 CAPSULE (50,000 UNITS TOTAL) BY MOUTH WEEKLY 07/05/20 22 Active triamcinolone (Kenalog) 0.1 % creamIndications :Rash and nonspecific skin eruption APPLY TO AFFECTED AREA TWICE A DAY 300 g 05/10/20 23 Active metoprolol succinate XL (Toprol-XL) 25 MG 24 hr tabletIndication s:Essential hypertension Take 1 tablet (25 mg) by mouth Once per day. Do not crush or chew. 90 tablet 3 06/29/20 24 Active atorvastatin (Lipitor) 40 MG tabletIndication s:Dyslipidemia associated with type 2 diabetes mellitus (CMS/HCC) Take 1 tablet (40 mg) by mouth in the morning. 90 tablet 3 10/05/19 25 Active fenofibrate (Tricor) 145 MG tabletIndication s:Dyslipidemia associated with type 2 diabetes mellitus (CMS/HCC) Take 1 tablet (145 mg) by mouth Once per day. 30 tablet 11 10/05/19 25 2025 Active Alcohol Swabs (Alcohol Prep) 70 % pads Use as directed four times a day 11/09/19 25 Active clonazePAM (KlonoPIN) 1 MG tablet Take 1 tablet by mouth 2 times daily. 10/17/19 25 Active FLUoxetine (PROzac) 40 MG capsule Take 1 capsule by mouth in the morning. 10/17/19 25 Active B-D UF III MINI PEN NEEDLES 31G X 5 MM mis Inject under the skin. Four times a day 11/09/19 25 Active traZODone (Desyrel) 50 MG tablet Take 1 tablet by mouth at bedtime. 10/17/19 25 Active insulin lispro (HumaLOG) 100 UNIT/ML injectionIndicat ions:Type 2 diabetes mellitus with other specified complication, with long-term current use of insulin ([facility]) Inject 8 Units under the skin with breakfast, with lunch, and with evening meal. 4 mL 2 11/16/19 25 Active Continuous Glucose Sensor (FreeStyle Mingo 3 Plus Sensor) miscIndications: Type 2 diabetes mellitus with other specified complication, with long-term current use of insulin ([facility]) 1 each every 15 days. Apply 1 every 15 days as directed for CGM 2 each 11/16/19 25 Active TRUEplus Lancets 33G miscIndications: Type 2 diabetes mellitus with other specified complication, with long-term current use of insulin ([facility]) USE TO TEST BLOOD SUGAR THREE TIMES A DAY 100 each 11 11/16/19 25 Active glucose blood (FreeStyle Precision Wiliam Test) test stripIndications :Type 2 diabetes mellitus with other specified complication, with long-term current use of insulin ([facility]) USE TO TEST BLOOD SUGAR THREE TIMES A DAY IN CASE CGM FAILURE OR EXTREMES OF BG 100 each 11 11/16/19 25 2025 Active potassium phosphate, monobasic, (K-Phos) 500 MG tabletIndication s:Hypophosphatem ia Take 1 tablet (500 mg) by mouth 3 times daily. 21 tablet 11/16/19 25 2025 Active amLODIPine (Norvasc) 10 MG tabletIndication s:Essential hypertension Take 1 tablet (10 mg) by mouth Once per day. 30 tablet 5 11/22/19 25 Active FLUoxetine (PROzac) 20 MG capsule TAKE 1 CAPSULE IN THE MORNING 12/09/19 25 Active Multiple Vitamin (Daily-Darian Multivitamin) tabletIndication s:Type 2 diabetes mellitus with stage 3 chronic kidney disease, with long-term current use of insulin, unspecified whether stage 3a or 3b CKD (CMS/HCC) Take 1 tablet by mouth in the morning. 90 tablet 3 12/22/19 25 Active insulin glargine (Lantus SoloStar) 100 UNIT/ML penIndications:T ype 2 diabetes mellitus with stage 3 chronic kidney disease, with long-term current use of insulin, unspecified whether stage 3a or 3b CKD ([facility]) Inject 22 Units under the skin at bedtime. 6 mL 11 12/25/19 25 Active escitalopram (Lexapro) 5 MG tablet Take 1 tablet daily for 2 weeks then stop. 14 tablet 12/27/19 25 2024 Active Continuous Glucose Corporate Claims Examiner (FreeStyle Mingo 3 Alpha) deviceIndication s:Type 2 diabetes mellitus with other specified complication, with long-term current use of insulin ([facility]) USE DIRECTED 1 each 01/01/20 25 Active RSV Pre-Fusion F A&B Vac Rcmb (Abrysvo) 120 MCG/0.5ML reconstituted solutionIndicati ons:Type 2 diabetes mellitus with other specified complication, with long-term current use of insulin ([facility]) Inject 0.5 mL (120 mcg) into the muscle 1 (one) time for 1 dose. 0.5 mL 01/03/20 25 2024 Active zoster vaccine-recombin ant adjuvanted (Shingrix) 50 MCG/0.5ML vaccineIndicatio ns:Type 2 diabetes mellitus with other specified complication, with long-term current use of insulin ([facility]) Inject 0.5 mL (50 mcg) into the muscle 1 (one) time for 1 dose. 0.5 mL 01/03/20 25 2024 Active pen needle 31G x 5 mm miscIndications: Type 2 diabetes mellitus with other specified complication, with long-term current use of insulin ([facility]) Use as instructed 100 each 12 01/03/20 25 2025 Active mirtazapine (Remeron) 7.5 MG tabletIndication s:Mixed anxiety and depressive disorder TAKE 1 TABLET BY MOUTH AT BEDTIME. 30 tablet 2 04/11/20 24 2024 Discontinued(M ed list cleanup (will not trigger notification to Pharmacy)) Multiple Vitamin (Daily-Darian Multivitamin) tabletIndication s:Type 2 diabetes mellitus with stage 3 chronic kidney disease, with long-term current use of insulin, unspecified whether stage 3a or 3b CKD ([facility]) TAKE 1 TABLET BY MOUTH EVERY DAY IN THE MORNING 30 tablet 5 06/18/20 24 2024 Discontinued(R eorder (will not trigger notification to Pharmacy)) insulin glargine (Lantus SoloStar) 100 UNIT/ML pen Inject 24 Units under the skin at bedtime. 2024 Discontinued(R eorder (will not trigger notification to Pharmacy)) Continuous Glucose Corporate Claims Examiner (Sckipio TechnologiesStyle Mingo 3 Alpha) deviceIndication s:Type 2 diabetes mellitus with other specified complication, with long-term current use of insulin ([facility]) 1 each Once per day. Use as directed for CGM 1 each 11/16/19 25 2024 Discontinued escitalopram (Lexapro) 10 MG tabletIndication s:Mixed anxiety and depressive disorder TAKE 1 TABLET BY MOUTH EVERY DAY IN THE MORNING 30 tablet 2 11/30/19 25 2024 Discontinued(D ose adjustment) Active Problems Problem Noted Date Diagnosed Date Acute pancreatitis 11/15/2024 Assessment & Plan (11/15/2024 12:17 PM EDT): BMP, electrolytes and triglycerides will be rechecked Acute kidney injury superimposed on CKD ([facility] ) 11/15/2024 Assessment & Plan (11/15/2024 12:17 PM EDT): Patient was already referred to nephrology on previous appointment with me, son tells me she does has an appointment next month I advised for them not to miss his appointment Right foot pain 03/29/2024 Onychomycosis 03/29/2024 Resistant [...] day Essential hypertension 11/05/2022 Assessment & Plan (01/02/2025 11:07 AM EDT): Blood pressures is not to be under control, I advised to continue with the medication regimen, low-sodium diet Assessment & Plan (11/15/2024 12:16 PM EDT): Blood pressure seems to be under control during hospitalization it was discontinue amlodipine with Benzapril, I will not put medication again I advised to continue to monitor her blood pressure at home Assessment & Plan (06/29/2024 12:19 PM EST): [...] and depressive disorder 11/05/2022 Assessment & Plan (01/02/2025 11:09 AM EDT): I am titrating down escitalopram she may continue with duloxetine prescribed by psychiatrist, continue management as per psychiatrist Assessment & Plan (09/16/2023 1:16 PM EST): [...] use of insulin 11/05/2022 Assessment & Plan (01/02/2025 11:08 AM EDT): Diabetes is: not controlled - Lab Results Component Value Date HGBA1C 11.0 (A) 11/21/2024 HGBA1C 6.9 (A) 06/29/2024 HGBA1C 10.2 (A) 03/29/2024 - Lab Results Component Value Date MICROALBUR 2.3 03/12/2022 CREATININE 1.26 11/15/2024 -Changes: Medications were recently adjusted - Diabetic eye exam: Referral done today - Diabetic foot exam: Referral done today - Continue lifestyle modifications - Continue current medications - Follow up: 3 months Assessment & Plan (11/15/2024 12:19 PM EDT): Diabetes is: not controlled - Lab Results Component Value Date HGBA1C 6.9 (A) 06/29/2024 HGBA1C 10.2 (A) 03/29/2024 HGBA1C 7.3 (A) 12/28/2023 - Lab Results Component Value Date MICROALBUR 2.3 03/12/2022 CREATININE 1.26 11/15/2024 -Changes: Provided to discontinue insulin sliding scale and instead put her on Humalog 8 units with meals continue with same dose of Lantus, during hospitalization Trulicity was discontinued I agree with this , patient will also be referred to pharmacy CD[facility] and I also prescribed for her continuous glucose monitoring - Diabetic eye exam: Up-to-date - Diabetic foot exam: Up-to-date Patient already has an appointment with me next month Assessment & Plan (10/05/2024 1:09 PM EST): [...] (H) 06/25/2020 - Diabetic eye exam: referral susan today - Diabetic foot exam: done today - Continue lifestyle modifications - Continue current medications Encounters Date Type Department Care Team Description 01/02/2025 10:30 AM EDT Office Visit [facility] [address] [place] [phone] Lynette Gipson MD Screening for colon cancer (Primary Dx); Type 2 diabetes mellitus with other specified complication, with long-term current use of insulin ([facility]); Encounter for screening mammogram for malignant neoplasm of breast; Essential hypertension; Type 2 diabetes mellitus with stage 3 chronic kidney disease, with long-term current use of insulin, unspecified whether stage 3a or 3b CKD (CMS/HCC); Mixed anxiety and depressive disorder 01/02/2025 Travel 01/01/2025 Telephone [facility] [address] [place] [address] [phone] Lynette Gipson MD chart prep 12/31/2024 Telephone [facility] [address] [place] [address] [phone] Lynette Gpison MD Referral 12/29/2024 Refill [facility] [address] [place] [address] [phone] Lynette Gipson MD Type 2 diabetes mellitus with other specified complication, with long-term current use of insulin ([facility]) 12/26/2024 Refill [facility] [address] [place] [address] [phone] Lynette Gipson MD 12/25/2024 Patient Outreach [facility] [address] [place] [address] [phone] Lynette Gipson MD Pre-visit Planning ((Unable to reach for PVP screening, LVM)) 12/24/2024 Refill [facility] [address] [place] [address] [phone] Lynette Gipson MD Type 2 diabetes mellitus with stage 3 chronic kidney disease, with long-term current use of insulin, unspecified whether stage 3a or 3b CKD (CMS/HCC) 12/20/2024 Refill [facility] [address] [place] [address] [phone] Lynette Gipson MD Type 2 diabetes mellitus with stage 3 chronic kidney disease, with long-term current use of insulin, unspecified whether stage 3a or 3b CKD ([facility]) 12/20/2024 Travel 12/06/2024 2:00 PM EDT Clinical Support [address] [phone] Jaida Cook RN Type 2 diabetes mellitus with stage 3 chronic kidney disease, with long-term current use of insulin, unspecified whether stage 3a or 3b CKD ([facility]) [E11.22, N18.30, Z79.4] 12/06/2024 Travel 11/29/2024 Refill [facility] [address] [place] [address] [phone] Lynette Gipson MD Mixed anxiety and depressive disorder 11/21/2024 Travel 11/16/[address] [address] Lynette Gipson MD I 11/15/2024 9:30 AM EDT Office Visit [address] [phone] Lynette Gipson MD Hypophosphatemia (Primary Dx); Type 2 diabetes mellitus with other specified complication, with long-term current use of insulin ([facility]); Acute pancreatitis, unspecified complication status, unspecified pancreatitis type; Acute kidney injury superimposed on CKD ([facility]) ([facility]); Essential hypertension; Type 2 diabetes mellitus with stage 3 chronic kidney disease, with long-term current use of insulin, unspecified whether stage 3a or 3b CKD ([facility]) 11/15/2024 Telephone [facility] [address] [place] [phone] Esther Salcido, DRU CGM PA 11/15/2024 Orders Only [facility] [address] [place] [address] [phone] Lynette Gipson MD 11/15/2024 Telephone [facility] [address] [place] [phone] Lynette Gipson MD Results 11/15/2024 Refill [facility] [address] [place] [address] Lynette Gipson MD Type 2 diabetes mellitus with other specified complication, with long-term current use of insulin (CMS/HCC) 11/15/2024 Travel 11/08/2024 Telephone [facility] [address] [place] [address] Lynette Gipson MD order 10/08/2024 Telephone [facility] [address] [place] [address] Lynette Gipson MD Results 10/05/2024 10:00 AM EST Office Visit [facility] [address] [place] [phone] Lynette Gipson MD Type 2 diabetes mellitus with stage 3 chronic kidney disease, with long-term current use of insulin, unspecified whether stage 3a or 3b CKD (CMS/HCC) (Primary Dx); Resistant hypertension 10/05/2024 Orders Only [facility] [address] [place] [address] Lynette Gipson MD Stage 3b chronic kidney disease (CMS/HCC) (Primary Dx); Dyslipidemia associated with type 2 diabetes mellitus (CMS/HCC) (CMS/HCC) 10/05/2024 Travel from Last 3 Months Immunizations Immunization Administration Dates Next Due Influenza High-dose Quadrivalent Preservative Fr ee 06/21/2022 Influenza Quadrivalent Adjuvanted 06/08/2023 Influenza injectable quadrivalent preservative f ree 06/27/2020 Moderna Covid-19 Vaccine 12+ 07/25/2023 Pfizer Covid-19 Vaccine 12+ 03/31/2022, Pfizer Covid-19 Vaccine 12+ mart-sucrose (Posadas C [...] Sign Reading Time Taken Comments Blood Pressure 137/87 01/02/2025 9:51 AM EDT Pulse 80 01/02/2025 9:51 AM EDT Temperature 36.3 ??C (97.4 ??F) 01/02/2025 9:51 AM ED T Respiratory Rate 14 01/02/2025 9:51 AM EDT Oxygen Saturation 99% 03/29/2024 10: 15 AM EDT Inhaled Oxygen Concentration - - Weight 54.8 kg (120 lb 12.8 oz) 01/02/2025 9:51 AM EDT Height 144.8 cm (4' 9 ) 01/02/2025 9:51 AM EDT Body Mass Index 26.14 01/02/2025 9:51 AM EDT Plan of Treatment Upcoming Encounters Date Type Department Care Team (Late st Contact Info) Description 01/08/2025 11:30 AM EDT Telemedicine [facility] [address] [place] [phone] Angelo Dahl, PharmD [address] [place] [address] 04/04/2025 10:45 AM EDT Office Visit [facility] [address] [place] [phone] Lynette Gipson MD [address] [place], [place] [phone] Health Maintenance Due Date Last Done Comments CT Colonography 1956 Colonoscopy 1956 Colorectal Cancer Screening 1956 FIT DNA/Cologuard 1956 FIT 1956 FOBT 1956 Sigmoidoscopy 1956 DTaP/Tdap/Td Vaccines (1 - Tdap) 02/22/1975 Zoster Vaccines (1 of 2) 02/22/2006 RSV Patients and Patients Aged 60 years or older (1 - Risk 60-74 years 1-dose series) 2016 Mammogram 11/19/2022 11/19/2021 COVID-19 Vaccine ( season) 2024 07/25/2023, 03/31/2022, 03/31/2022, Additional history exists Influenza Vaccine (#1) 2024 , 06/21/2022, 06/27/2020 Eye Exam 01/03/2025 01/03/2023, 12/14, 01/03/2023, Additional history exists Diabetes: Hemoglobin A1C 02/20/2025 025, 06/29/2024, 03/29/2024, Additional history exists Diabetes: Foot Exam 03/29/2025 03/29/2024, 11/08/2022, 11/08/2022 SDOH Screening 03/29/2025 03/29/2024 Alcohol/Substance Use Screening 06/29/2025 06/29/2024 Lipid Panel 11/15/2025 11/15/2024, 09/16, 09/16/2023, Additional history exists Tobacco Screening 11/15/2025 11/15/2024 Depression Screening 01/02/2026 01/02/2025, 01/03/20 25 Pneumococcal Vaccine: 50+ Years Completed 06/21/2022 Hepatitis [...] Procedure Name Priority Date/Time Associated Diagnosis Comments PHOSPHATE ( PHOSPHORUS) Routine 01/02/2025 10:24 AM EDT Hypophosphatemia BASIC METABOLIC PANEL Routine 01/02/2025 10:24 AM EDT Hypophosphatemia POCT GLUCOSE Routine 01/02/2025 9:53 AM EDT Type 2 diabetes mellitus with other specified complication, with long-term current use of insulin ([facility]) POCT GLYCATED HEMOGLOBIN, TOTAL Routine 11/21/2024 11:08 AM EDT Type 2 diabetes mellitus with other specified complication, with long-term current use of insulin ([facility]) LIPID PANEL, STANDARD Routine 11/15/2024 10:22 AM EDT Acute pancreatitis, unspecified complication status, unspecified pancreatitis type PHOSPHATE ( PHOSPHORUS) Routine 11/15/2024 10:22 AM EDT Acute kidney injury superimposed on CKD (CMS/HCC) (CMS/HCC) MAGNESIUM Routine 11/15/2024 10:22 AM EDT Acute kidney injury superimposed on CKD (CMS/HCC) (CMS/HCC) BASIC METABOLIC PANEL Routine 11/15/2024 10:22 AM EDT Acute kidney injury superimposed on CKD (CMS/HCC) (CMS/HCC) POCT GLUCOSE Routine 11/15/2024 9:36 AM EDT Type 2 diabetes mellitus with other specified complication, with long-term current use of insulin (CMS/HCC) TSH W/REFLEX TO FT4 Routine 10/05/2024 1 0:42 AM EST Type 2 diabetes mellitus with stage 3 chronic kidney disease, with long-term current use of insulin, unspecified whether stage 3a or 3b CKD (CMS/HCC) Resistant hypertension VITAMIN D,25-OH,TOTAL,IA Routine 10/05/2024 10:42 [...] unspecified whether stage 3a or 3b CKD ([facility]) Resistant hypertension CBC WITH AUTO DIFFERENTIAL Routine 10/05/2024 10:42 AM EST Type 2 diabetes mellitus with stage 3 chronic kidney disease, with long-term current use of insulin, unspecified whether stage 3a or 3b CKD ([facility]) Resistant hypertension POCT GLUCOSE Routine 10/05/2024 10:02 AM EST Type 2 diabetes mellitus with stage 3 chronic kidney disease, with long-term current use of insulin, unspecified whether stage 3a or 3b CKD ([facility]) MAMMOGRAM GENERIC Routine 11/19/2021 3:3 0 PM EDT from Last 3 Months or Most Recently Relevant to Health Maintenance Results * (ABNORMAL) Phosphate (As Phosphorus) (01/02/2025 10:24 AM EDT) Only the most recent of2 resultswithin the time period is included. Phosphorus 2.3(L) 2.7 - 4.5 mg/dL [facility] Blood Venous blood specimen / Unknown 01/02/2025 10:24 AM EDT 01/02/2025 11:03 AM EDT Lynette Antonio MD LAB BLOOD ORDERABLES Final Result [facility] [address] [place] [phone] * (ABNORMAL) Basic Metabolic Panel (01/02/2025 10:24 AM EDT) Only the most recent of2 resultswithin the time period is included. Sodium 139 135 - 145 mmol/L [facility] Potassium 3.9 3.3 - 5.1 mmol/L [facility] Chloride 105 96 - 108 mmol/L [facility] Carbon Dioxide 22 22 - 29 mmol/L [facility] Anion Gap 16 12 - 20 [facility] Urea Nitrogen (BUN) 22(H) 9 - 16 mg/dL [facility] Creatinine, Serum 1.40 0.5 - 1.4 mg/dL [facility] Estimated Glomerular Filt Rate 37 [facility] Comment:Chronic Kidney Disea se: Estimated GFR < 60 mL/min/[id number] Kidney Disease: Estimated GFR < 15 mL/min/1.73m2 Glucose 135(H) 60 - 115 mg/dL [facility] Calcium 9.6 8.4 - 10.2 mg/dL [facility] Blood Venous blood specimen / Unknown 01/02/2025 10:24 AM EDT 01/02/2025 11:03 AM EDT Lynette Antonio MD LAB BLOOD ORDERABLES Final Result [facility] [address] [place] [phone] * POCT Glucose (01/02/2025 9:53 AM EDT) Only the most recent of3 resultswithin the time period is included. Glucose Blood, POC 139 60 - 200 mg/dL Blood Capillary blood specimen / Unknown 01/02/2025 9:53 AM EDT Lynette Antonio MD POINT OF CARE TEST EN TER/EDIT ORDERABLES Final Result * (ABNORMAL) POCT HGB A1C (11/21/2024 11:08 AM EDT) Hemoglobin A1C 11.0(A) 4.0 - 6.0 % QC Media Lot # [id number] Lot# Expiration Date Blood 11/21/2024 11:0 8 AM EDT Lynette Antonio MD POINT OF CARE TEST EN TER/EDIT ORDERABLES Final Result * Magnesium (11/15/2024 10:22 AM EDT) Pathologist [facility] Magnesium 1.6 1.6 - 2.6 mg/dL [facility] Blood Venous blood specimen / Unknown 11/15/2024 10:22 AM EDT 11/15/2024 11:30 AM EDT Lynette Antonio MD LAB BLOOD ORDERABLES Final Result Performing Organization Address [facility] Co de Phone Number [facility] [address] [place] [address] [phone] * (ABNORMAL) Lipid Panel, Standard (11/15/2024 10:22 AM EDT) Only the most recent of2 resultswithin the time period is included. Triglycerides 437(H) <150 mg/dL [facility] Comment:Desirable Triglyceri de: less than 150 mg/dLBorderline High Triglyceride 150-199 mg/dLHigh Triglyceride: 200-499 mg/dLVery High Triglyceride: greater than or equal to 5OO mg/dL Cholesterol 185 <200 mg/dL [facility] Comment:Desirable Cholestero l: less than 200 mg/dLBorderline High Cholesterol: 200-239 mg/dLHigh Cholesterol: greater than 239 mg/dL LDL Cholesterol Calculated TNP <100 mg/dL [facility] Comment:Unable to calculate the LDL. The formula of Friedwald,Valente, and Ish is only valid if the triglycerides areless than 400 mg/dl. HDL Cholesterol 28(L) >40 mg/dL [facility] Comment:Desirable HDL: great er than 40 mg/dL Note: This HDL assay may give artificially low results in patients with liver disease. Blood Venous blood specimen / Unknown 11/15/2024 10:22 AM EDT 11/15/2024 11:30 AM EDT Lynette Antonio MD LAB BLOOD ORDERABLES Final Result [facility] [address] [place] [phone] * Vitamin D, 25-Hydroxy, Total, Immunoassay (10/05/2024 10:42 AM EST) Vitamin D 25-OH Total 68.5 >30 ng/mL [facility] Comment:Health Based Referen ce Values*< 20 ng/mL Xbrbziccf41-69 ng/mL Insufficient> 30 ng/mL Sufficient*Jimy LAZCANO. N [...] BLOOD ORDERABLES Final Result Performing Organization Address [facility]/ZIP Co de Phone Number [facility] [address] [place] [phone] * TSH with Reflex to Free T4 (10/05/2024 10:42 AM EST) TSH reflex Free T4 1.47 0.32 - 4.0 uIU/mL [facility] Blood Venous blood specimen / Unknown 10/05/2024 10:42 AM EST 10/05/2024 1:06 PM EST us Lynette Antonio MD LAB BLOOD ORDERABLES Final Result Performing Organization Address [facility]/ZIP Co de Phone Number [facility] [address] [place] [address] [phone] * (ABNORMAL) CBC auto differential (10/05/2024 10:42 AM EST) White Blood Count 12.1(H) 4.8 - 10.8 X10*3/uL [facility] Red Blood Count 4.76 4.20 - 5.50 X10*6/uL [facility] Hemoglobin 13.7 12.0 - 16.0 g/dl [facility] Hematocrit 40.6 37.0 - 47.0 % [facility] Mean Corpuscular Volume 85.3 80.0 - 98.0 fL [facility] Mean Corpuscular Hemoglobin 28.8 27.0 - 33.0 pg [facility] Mean Corpuscular HGB Conc 33.7 31.0 - 35.0 g/dl [facility] Red Cell Distribution Width 13.6 11.0 - 16.0 % [facility] Platelet Count 259 160 - 400 X10*3/uL [facility] Mean Platelet Volume 11.3 9.4 - 12.3 fL [facility] Neutrophils Percent Auto 60.7 45 - 73 % [facility] [facility] Imm Gran Pct Auto 0.7(H) 0.0 - 0.4 % [facility] Lymphocytes Percent Auto 30.3 20 - 40 % [facility] Monocytes Percent Auto 5.5 2 - 11 % [facility] Eosinophils Percent Auto 2.1 0 - 4 % [facility] Basophils Percent Auto 0.7 0 - 2 % [facility] NRBC Pct Auto 0.0 0.0 - 0.2 /100WBC [facility] Neutrophils Absolute Auto 7.4 2.0 - 8.3 x10*3/uL [facility] Imm Gran Abs Auto 0.09(H) 0.00 - 0.03 X10*3/uL [facility] Lymphocytes Absolute Auto 3.7 1.2 - 4.9 X10*3/uL [facility] Monocytes Absolute Auto 0.7 0.1 - 1.2 X10*3/uL [facility] Eosinophils Absolute Auto 0.3 0.0 - 0.4 X10*3/uL [facility] Basophils Absolute Auto 0.1 0.0 - 0.2 X10*3/uL [facility] NRBC Abs Auto 0.000 0.0 - 0.012 X10*3/uL [facility] Blood Venous blood specimen / Unknown 10/05/2024 10:42 AM EST 10/05/2024 1:06 PM EST Lynette Antonio MD LAB BLOOD ORDERABLES Final Result Performing Organization Address [facility]/ZIP Co de Phone Number [facility] [address] [place] [phone] * Hepatitis C Antibody with Reflex to HCV, RNA, Quantitative, Real-Time PCR (10/05/2024 10:42 AM EST) Pathologist [facility] Hepatitis C Antibody Nonreactive Nonreactive [facility] Comment:Antibodies to HCV no t detected; does not exclude early acuteHCV infection. Blood Venous blood specimen / Unknown 10/05/2024 10:42 AM EST 10/05/2024 1:06 PM EST us Lynette Antonio MD LAB BLOOD ORDERABLES Final Result Performing Organization Address [facility] Co de Phone Number [facility] [address] [place] [phone] * (ABNORMAL) Comprehensive Metabolic Panel (10/05/2024 10:42 AM EST) Sodium 138 135 - 145 mmol/L [facility] Potassium 3.5 3.3 - 5.1 mmol/L [facility] Chloride 103 96 - 108 mmol/L [facility] Carbon Dioxide 21(L) 22 - 29 mmol/L [facility] Anion Gap 18 12 - 20 [facility] Urea Nitrogen (BUN) 24(H) 9 - 16 mg/dL [facility] Creatinine, Serum 1.28 0.5 - 1.4 mg/dL [facility] Estimated Glomerular Filt Rate 41 [facility] Comment:Chronic Kidney Disea se: Estimated GFR < 60 mL/min/1.88g7Qaktgi Kidney Disease: Estimated GFR < 15 mL/min/1.73m2 Glucose 208(H) 60 - 115 mg/dL [facility] Calcium 10.1 8.4 - 10.2 mg/dL [facility] Bilirubin, Total 0.8 0.0 - 1.0 mg/dL [facility] Aspartate Amino Transferase 42(H) 5 - 31 U/L [facility] Alanine Aminotransferase 42(H) 0 - 31 U/L [facility] Total Protein 9.4(H) 6.5 - 8.0 g/dL [facility] Albumin Level 4.6 3.5 - 5.0 g/dL [facility] Alkaline Phosphatase 137(H) 39 - 117 U/L [facility] Blood Venous blood specimen / Unknown 10/05/2024 10:42 AM EST 10/05/2024 1:06 PM EST us Lynette Antonio MD LAB BLOOD ORDERABLES Final Result Performing Organization Address City/State/[facility] Co de Phone Number [facility] [address] [place] [phone] * Mammography Report 1 (11/19/2021 3:30 [...] Most Recently Relevant to Health Maintenance Insurance [id number] OPTIONS (HMO D-SNP) ANTONIA ARIAS [id number] Care Teams Route Contractor Relationship Specialty Start Date End Date Lynette Gipson MD [address] [place] [address] PCP - General Family Medicine 09/24/20 Angelo Dahl, PharmD [address] [place] [phone] Pharmacist Internal Medicine 11/21/24 [facility] 11/09/24
--- OUTSIDE RECORDS SUMMARY | 2025-01-02 11:53 | XMS_ITS | Encounter Summary ---
Author Organization [facility] Address [address] [place] [address] Phone Care Team Providers Care Spray Gun Repairer Helper Name Role Phone Lynette Gipson MD Primary Care Provide r Encounter Details Date Type Department Care Team (Late st Contact Info) Description 07/21/2022 Documentation Only [facility], [address] [place] [phone] Miguel Johnston PA Social History [...] on filedocumented in this encounter Care Teams Spray Gun Repairer Helper Relationship Specialty Start Date End Date Lynette Gipson MD [address] [place] [phone] PCP - General Internal Medicine 10/16/24 documented as of this encounter
--- OUTSIDE RECORDS SUMMARY | 2025-01-02 11:53 | XMS_ITS | Encounter Summary ---
Author Organization [employer] Address [address] [facility] [address] [place] [address] Care Team Providers Care Event Av Operator Name Role Phone Lynette Gipson MD Primary Care Provide r Angelo Dahl PharmD Unavailable [phone] Encounter Details Date Type Department Care Team ([facility] Contact Info) Description 11/09/2022 Orders Only [facility] [address] [place], [place] [phone] Lynette Gipson MD [address] [place], [place] [phone] Dyslipidemia associated with type 2 diabetes mellitus [...] Department Care Team (Late Contact Info) Description 01/08/2025 11:30 AM EDT Telemedicine [facility] [address] [place] [phone] Angelo Dahl, [place] [address] 04/04/2025 10:45 AM EDT Office Visit [facility] [address] [place] [address] Lyn[place] [address] documented as of this encounter Visit Diagnoses Diagnosis Dyslipidemia associated with type 2 diabetes mellitus (CMS/HCC)- Primary documented in this encounter Additional Health Concerns Assessment Noted Time PHQ-9 Depression Total Score: 5 11/09/19 23 9:02 AM EDT documented as of this encounter Care Teams Event Av Operator Relationship Specialty Start Date End Date Lynette Gipson MD [address] [place] [phone] PCP - General Family Medicine 09/24/20 Angelo Dahl, CaroD [address] [place] [phone] Pharmacist Internal Medicine 11/21/24 [facility] 11/09/24 documented as of this encounter
--- OUTSIDE RECORDS SUMMARY | 2025-01-02 11:53 | XMS_ITS | Encounter Summary ---
Author Organization [employer] Address [address] [place] [address] Care Team Providers Care Pen Ruler Operator Name Role Phone Lynette Gipson MD Primary Care Provide r Angelo Dahl PharmD Unavailable [phone] Encounter Details Date Type Department Care Team ([facility] st Contact Info) Description 11/15/2024 Orders Only [facility] [address] [place], [place] [phone] Lynette Gipson MD [address] [place], [place] [phone] Social History Tobacco Use Types Packs/Day Years [...] Info) Description 01/08/2025 11:30 AM EDT Telemedicine [facility] [address] [place] [phone] Angelo Dahl, PharmD [address] [place] [phone] 04/04/2025 10:45 AM EDT Office Visit [facility] [address] [place] [phone] Lynette Gipson MD [address] [place] [phone] documented as of this encounter Visit Diagnoses Not on filedocumented in this encounter Additional Health Concerns Assessment Noted Time PHQ-9 Depression Total Score: 0 06/29/20 24 10:24 AM EST documented as of this encounter Care Teams Pen Ruler Operator Relationship Specialty Start Date End Date Lynette Gipson MD [address] [place] [phone] PCP - General Family Medicine 09/24/20 Angelo Dahl, CaroD [address] [place] [phone] Pharmacist Internal Medicine 11/21/24 [facility] 11/09/24 documented as of this encounter
--- OUTSIDE RECORDS SUMMARY | 2025-01-02 11:53 | XMS_ITS | Encounter Summary ---
Author Organization [employer] Address [address] [place] [address] Care Team Providers Care Business Solutions Analyst Name Role Phone Lynette Gipson MD Primary Care Provide r Angelo Dahl PharmD Unavailable [phone] Reason for Visit * Reason Onset Date Comments Referral 12/31/2024 Encounter Details Date Type Department Care Team ([facility] st Contact Info) Description 12/31/2024 Telephone [facility] [address] [place], [place] [phone] Lynette Gipson MD [address] [place] [address] Referral Social History Tobacco Use Types Packs/Day Years [...] your housing situation today? I have teri deedee 03/29/[address] you li [...] encounter Miscellaneous Notes * Telephone Encounter - Denise Linares [place] - 12/31/2024 9:47 AM EDT Contcated pt in regards to Nutrition referral, had to [facility] with call back number. LB documented in this encounter Plan of Treatment Upcoming Encounters Date Type Department Care Team (Late st Contact Info) Description 01/08/2025 11:30 AM EDT Telemedicine [facility] [address] [place] [phone] Angelo Dahl, PharmD [address] [place] [address] 04/04/2025 10:45 AM EDT Office Visit [facility] [address] [place] [address] Lynette Gipson MD [address] [place] [address] documented as of this encounter Visit Diagnoses Not on filedocumented in this encounter Additional Health Concerns Assessment Noted Time PHQ-9 Depression Total Score: 0 06/29/20 24 10:24 AM EST documented as of this encounter Care Teams Business Solutions Analyst Relationship Specialty Start Date End Date Lynette Gipson MD [address] [place] [address] PCP - General Family Medicine 09/24/20 Angelo Dahl, CaroD [address] [place] [address] Pharmacist Internal Medicine 11/21/24 [facility] 11/09/24 documented as of this encounter
--- OUTSIDE RECORDS SUMMARY | 2025-01-02 11:53 | XMS_ITS | Encounter Summary ---
Author Organization [employer] Address [address] [facility] [address] [place] [address] Care Team Providers Care Field Rep Name Role Phone Lynette Gipson MD Primary Care Provide r Angelo Dahl PharmD Unavailable [phone] Reason for Referral * Consultation (Routine) - Pending Review Specialty Diagnoses / Procedures Referred By Portia aldana Referred To Contact Podiatry Diagnoses Type 2 diabetes mellitus with other specified complication, with long-term current use of insulin ([facility]) Lynette Gipson MD [address] [place] [address] Phone: tel: fax: Referral ID Status Reason Start Date Expiration Date Visits Requested Visits Authorized [id number] Pending Review Specialty Services Required 01/02/2025 01/02/2026 1 1 * Consultation (Routine) - Authorized Specialty Diagnoses / Procedures Referred By Portia aldana Referred To Contact Optometry Diagnoses Type 2 diabetes mellitus with other specified complication, with long-term current use of insulin ([facility]) Lynette Gipson MD [address] [place] [address] Phone: tel: fax: [facility] OPTOMETRY [address] [place] [address] Phone: tel: fax: Referral ID Status Reason Start Date Expiration Date Visits Requested Visits Authorized [id number] Authorized Consult and Treat 01/02/2025 01/02/2026 1 1 * Imaging (Routine) - Authorized Specialty Diagnoses / Procedures Referred By Portia aldana Referred To Contact Radiology Diagnoses Encounter for screening mammogram for malignant neoplasm of breast Procedures BI Mammogram Screening Tomosynthesis Bilateral Lynette Gipson MD [address] [place] [address] Phone: tel: fax: [facility] [address] [place] [address] Phone: tel: fax: Referral ID Status Reason Start Date Expiration Date V isits Requested Visits Authorized [id number] Authorized 01/02/2025 01/02/2026 1 1 Reason for Visit * Reason Comments Diabetes Encounter Details Date Type Department Care Team (Late st Contact Info) Description 01/02/2025 10:30 AM EDT Office Visit [facility] MEDICINE [address] [place], [place] [phone] Lynette Gipson MD [address] [place], [place] [phone] Screening for colon cancer (Primary Dx); Type 2 diabetes mellitus with other specified complication, with long-term current use of insulin (CMS/HCC); Encounter for screening mammogram for malignant neoplasm of breast; Essential hypertension; Type 2 diabetes mellitus with stage 3 chronic kidney disease, with long-term current use of insulin, unspecified whether stage 3a or 3b CKD (CMS/HCC); Mixed anxiety and depressive disorder Social History Tobacco Use Types Packs/Day Years [...] 14 01/02/2025 9:51 AM EDT Oxygen Saturation - - Inhaled Oxygen Concentration - - Weight 54.8 kg (120 lb 12.8 oz) 01/02/2025 9:51 AM EDT Height 144.8 cm (4' 9 ) 01/02/2025 9:51 AM EDT Body Mass Index 26.14 01/02/2025 9:51 AM EDT documented in this encounter Functional Status * Over the past 2 weeks, how often have you been bothered by any of the following problems? Question Answer Date of Assessment Author Patient Health Questionnaire -2 Score 0 01/02/2025 9:51 AM Candelaria Phan MA * Little interest or pleasure in doing things Answer Date of Assessment Author Not at all 01/02/2025 9:51 AM KARENT Abdirahman Valdez [place] * Feeling down, depressed, or hopeless Answer Date of Assessment Author Not at all 01/02/2025 9:51 AM KARENT Abdirahman Valdez [place] * Trouble falling or staying asleep, or sleeping too much Answer Date of Assessment Author Not at all 01/02/2025 9:51 AM Abdirahman Phan MA * Feeling tired or having little energy Answer Date of Assessment Author Not at all 01/02/2025 9:51 AM Abdirahman Phan MA * Poor appetite or overeating Answer Date of Assessment Author Not at all 01/02/2025 9:51 AM Abdirahman Phan MA * Feeling bad about yourself - or that you are a failure or have let yourself or your family down Answer Date of Assessment Author Not at all 01/02/2025 9:51 AM Abdirahman Phan MA * Trouble concentrating on things, such as reading the newspaper or watching television Answer Date of Assessment Author Not at all 01/02/2025 9:51 AM Abdirahman Phan MA * Moving or speaking so slowly that other people could have noticed? Or the opposite - being so fidgety or restless that you have been moving around a lot more than usual. Answer Date of Assessment Author Not at all 01/02/2025 9:51 AM Abdirahman Phan MA * Thoughts that you would be better off or hurting yourself in some way Answer Date of Assessment Author Not at all 01/02/2025 9:51 AM Abdirahman Phan MA * Patient Health Questionnaire-9 Score Answer Date of Assessment Author 0 01/02/2025 9:51 AM Abdirahman Phan MA * Over the last 2 weeks, [...] Valdez MA documented as of this encounter Progress Notes * Lynette Antonio MD - 01/02/2025 10:30 AM EDT SUBJECTIVE: Tesha Minaya is a 69 y.o. year old female who presents for Chronic Disease Management . Acute Concerns: None Social History Social History Narrative Not on file Problem List[1] Essential hypertension Hypertensive disorder Intention tremor Mixed anxiety and depressive disorder Major depressive disorder Mood disorder (CMS/HCC) Stage 3 chronic kidney disease (CMS/HCC) Stage 3b chronic kidney disease (CMS/HCC) Type 2 diabetes mellitus with kidney complication, with long-term current use of insulin ([facility]) Encounter for preventative adult health care examination Rash and nonspecific skin eruption Colon cancer screening Encounter for screening mammogram for malignant neoplasm of breast Right tibial fracture Hospital discharge follow-up Unstable gait Resistant hypertension Right foot pain Onychomycosis Acute pancreatitis Acute kidney injury superimposed on CKD (CMS/HCC) (CMS/HCC) Family History[2] Review of Systems Constitutional: Negative. HENT: Negative. Respiratory: Negative. Cardiovascular: Negative. Musculoskeletal: Positive for arthralgias and myalgias. OBJECTIVE: Vitals: 01/02/25 0951 BP: 137/87 BP Location: Left arm Patient Position: Sitting BP Cuff Size: Adult Pulse: 80 Resp: 14 Temp: 97.4 ??F (36.3 ??C) TempSrc: Oral Weight: 120 lb 12.8 oz (54.8 kg) Height: 4' 9 (1.448 m) Physical Exam Constitutional: Appearance: Normal appearance. Cardiovascular: Rate and Rhythm: Normal rate and regular rhythm. Pulmonary: Effort: Pulmonary effort is normal. Breath sounds: Normal breath sounds. Abdominal: General: Abdomen is flat. Palpations: Abdomen is soft. Musculoskeletal: Right lower leg: No edema. Left lower leg: No edema. Neurological: Mental Status: She is alert. Follow Up: Follow up in about 3 months (around 04/04/2025) for chronic conditions . Medications Ordered Prior to Encounter[3] Problem List Items Addressed This Visit Encounter for screening mammogram for malignant neoplasm of breast Relevant Orders BI Mammogram Screening Tomosynthesis Bilateral Essential hypertension Blood pressures is not to be under control, I advised to continue with the medication regimen, low-sodium diet Type 2 diabetes mellitus with kidney complication, with long-term current use of insulin (CMS/HCC) Diabetes is: not controlled - Lab Results [...] current medications - Follow up: 3 months Mixed anxiety and depressive disorder I am titrating down escitalopram she may continue with duloxetine prescribed by psychiatrist, continue management as per psychiatrist Other Visit Diagnoses Screening for colon cancer - Primary Relevant Orders Cologuard?? colon cancer screening Type 2 diabetes mellitus with other specified complication, with long-term current use of insulin (CMS/HCC) Relevant Medications RSV Pre-Fusion F A&B Vac Rcmb (Abrysvo) 120 MCG/0.5ML reconstituted solution zoster vaccine-recombinant adjuvanted (Shingrix) 50 MCG/0.5ML vaccine pen needle 31G x 5 mm misc Other Relevant Orders POCT Glucose (Completed) Referral to [facility] Eye Care Referral to Podiatry [1] Patient Active Problem List Diagnosis Essential hypertension Hypertensive disorder Intention tremor Mixed anxiety and depressive disorder Major depressive disorder Mood disorder ([facility]/HCC) Stage 3 chronic kidney disease ([facility]) Stage 3b chronic kidney disease ([facility]) Type 2 diabetes mellitus with kidney complication, with long-term current use of insulin ([facility]) Encounter for preventative adult health care examination Rash and nonspecific skin eruption Colon cancer screening Encounter for screening mammogram for malignant neoplasm of breast Right tibial fracture Hospital discharge follow-up Unstable gait Resistant hypertension Right foot pain Onychomycosis Acute pancreatitis Acute kidney injury superimposed on CKD ([facility]) ([facility]) [2] Family History Problem Relation Name Age of Onset Diabetes Mother Hypertension Mother Breast cancer Sister [3] Current Outpatient Medications on File Prior to Visit Medication Sig Dispense Refill Alcohol Swabs (Alcohol Prep) 70 % pads Use as directed four times a day amLODIPine (Norvasc) 10 MG tablet Take 1 tablet (10 mg) by mouth Once per day. 30 tablet 5 atorvastatin (Lipitor) 40 MG tablet Take 1 tablet (40 mg) by mouth in the morning. 90 tablet 3 B-D UF III MINI PEN NEEDLES 31G X 5 MM misc Inject under the skin. Four times a day clonazePAM (KlonoPIN) 1 MG tablet Take 1 tablet by mouth 2 times daily. Continuous Glucose Property Appraiser (FreeStyle Mingo 3 [place]) device USE DIRECTED 1 each 0 Continuous Glucose Sensor (FreeStyle Mingo 3 Plus Sensor) [facility] 1 each every 15 days. Apply 1 every 15 days as directed for CGM 2 each 11 ergocalciferol (Vitamin D2) 1.25 MG (09068 UT) capsule TAKE 1 CAPSULE (50,000 UNITS TOTAL) BY MOUTHWEEKLY escitalopram (Lexapro) 5 MG tablet Take 1 tablet daily for 2 weeks then stop. 14 tablet 0 fenofibrate (Tricor) 145 MG tablet Take 1 tablet (145 mg) by mouth Once per day. 30 tablet 11 FLUoxetine (PROzac) 20 MG capsule TAKE 1 CAPSULE IN THE MORNING FLUoxetine (PROzac) 40 MG capsule Take 1 capsule by mouth in the morning. glucose blood (FreeStyle Precision Wiliam Test) test strip USE TO TEST BLOOD SUGAR THREE TIMES A DAY IN CASE CGM FAILURE OR EXTREMES OF BG 100 each 11 insulin glargine (Lantus SoloStar) 100 UNIT/ML pen Inject 22 Units under the skin at bedtime. 6 mL 11 insulin lispro (HumaLOG) 100 UNIT/ML injection Inject 8 Units under the skin with breakfast, with lunch, and with evening meal. 4 mL 2 metoprolol succinate XL (Toprol-XL) 25 MG 24 hr tablet Take 1 tablet (25 mg) by mouth Once per day.Do not crush or chew. 90 tablet 3 Multiple Vitamin (Daily-Darian Multivitamin) tablet Take 1 tablet by mouth in the morning. 90 tablet 3 potassium phosphate, monobasic, (K-Phos) 500 MG tablet Take 1 tablet (500 mg) by mouth 3 times daily. 21 tablet 0 traZODone (Desyrel) 50 MG tablet Take 1 tablet by mouth at bedtime. triamcinolone (Kenalog) 0.1 % cream APPLY TO AFFECTED AREA TWICE A DAY 300 g 0 TRUEplus Lancets 33G misc USE TO TEST BLOOD SUGAR THREE TIMES A DAY 100 each 11 [DISCONTINUED] Continuous Glucose Property Appraiser (FreeStyle Mingo 3 [place]) device 1 each Once per day. Use as directed for CGM 1 each 0 No current facility-administered medications on file prior to visit. documented in this encounter Miscellaneous Notes * Assessment & Plan Note - Lynette Antonio MD - 01/02/2025 11:09 AM EDT Associated Problem(s): Mixed anxiety and depressive disorder I am titrating down escitalopram she may continue with duloxetine prescribed by psychiatrist, continue management as per psychiatrist * Assessment & Plan Note - Lynette Antonio MD - 01/02/2025 11:08 AM EDT Associated Problem(s): Type 2 diabetes mellitus with kidney complication, with long-term current use of insulin ([facility]) Diabetes is: not controlled - Lab Results [...] current medications - Follow up: 3 months * Assessment & Plan Note - Lynette Antonio MD - 01/02/2025 11:07 AM EDT Associated Problem(s): Essential hypertension Blood pressures is not to be under control, I advised to continue with the medication regimen, low-sodium diet documented in this encounter Plan of Treatment Upcoming Encounters Date Type Department Care Team (Late st Contact Info) Description 01/08/2025 11:30 AM EDT Telemedicine [facility] [address] [place] [id number] Angelo Dahl, PharmD [address] [place] [address] 04/04/2025 10:45 AM EDT Office Visit [facility] [address] [place] [phone] Lynette Gipson MD [address] [place] [address] Scheduled Orders Name Type Priority Associated Diagnoses Orde r Schedule BI Mammogram Screening Tomosynthesis Bilateral Imaging Routine Encounter for screening mammogram for malignant neoplasm of breast Expected: 01/02/2025, Expires: 03/04/2026 Cologuard?? colon cancer screening Lab Routine Screening for colon cancer Ordered: 01/02/2025 Scheduled Referrals Name Type Priority Associated Diagnoses Orde r Schedule Referral to [facility] Eye Care Outpatient Referral Routine Type 2 diabetes mellitus with other specified complication, with long-term current use of insulin (CMS/HCC) Expected: 01/02/2025 (Approximate), Expires: 01/02/2026 Referral to Podiatry Outpatient Referral Routine Type 2 diabetes mellitus with other specified complication, with long-term current use of insulin (CMS/HCC) Expected: 01/02/2025 (Approximate), Expires: 01/02/2026 documented as of this encounter Procedures Procedure Name Priority Date/Time Associated Diagnosis Comments POCT GLUCOSE Routine 01/02/2025 9:53 AM EDT Type 2 diabetes mellitus with other specified complication, with long-term current use of insulin (CMS/[facility]) documented in this encounter Results * POCT Glucose (01/02/2025 9:53 AM EDT) Glucose Blood, POC 139 60 - 200 mg/dL Blood Capillary blood specimen / Unknown 01/02/2025 9:53 AM EDT us Lynette Antonio MD POINT OF CARE TEST EN TER/EDIT ORDERABLES Final Result documented in this encounter Visit Diagnoses Diagnosis Screening for colon cancer- Primary Special screening for malignant neoplasms, colon Type 2 diabetes mellitus with other specified complication, with long-term current use of insulin (CMS/HCC) Encounter for screening mammogram for malignant neoplasm of breast Essential hypertension Unspecified essential hypertension Type 2 diabetes mellitus with stage 3 chronic kidney disease, with long-term current use of insulin, unspecified whether stage 3a or 3b CKD (CMS/HCC) Mixed anxiety and depressive disorder Dysthymic disorder documented in this encounter Additional Health Concerns Assessment Noted Time PHQ-9 Depression Total Score: 0 01/03/20 25 9:51 AM EDT documented as of this encounter Care Teams Field Rep Relationship Specialty Start Date End Date Lynette Gipson MD [address] [place] [address] PCP - General Family Medicine 09/24/20 Angelo Dahl, PharmD [address] [place] [address] Pharmacist Internal Medicine 11/21/24 [facility] 11/09/24 documented as of this encounter
== END 2025-01-02 10:23 | disposition home or self-care (01) ==
LOC: HO.HHCL 10:22
PROVIDERS: Visit Provider Internal Medicine
DX: E83.39 Other disorders of phosphorus metabolism (principal)
CPT/HCPCS: 36415; 80048; 84100

== ENCOUNTER 2025-04-04 11:08 | Outpatient (REF) | payer OTHER, SELFPAY ==
--- OUTSIDE RECORDS SUMMARY | 2025-04-04 12:52 | XMS_ITS | Clinical Summary ---
Author Organization [facility] Address [address] [facility] [address] [place] [address] Phone Care Team Providers Care Crime Scene Analyst Name Role Phone Lynette Gipson MD [...] time each day Active ergocalciferol 1.25 MG (76273 UT) capsule TAKE 1 CAPSULE (50,000 UNITS [...] Hemoglobin A1C 02/20/2025 025, 06/29/2024 Influenza Vaccine (#1) 2025 3, 06/27/2020 Pneumococcal Vaccine: 50+ Years Completed 06/21/2022 Pneumococcal Vaccine: Peds ( 0 to 5 Years) and At-Risk Patients (6 to 49 Years) Discontinued 06/21/2022 Hepatitis B Vaccine Aged Out No longe r eligible based on patient's age to complete this topic Insurance Medicaid [place] [facility] ([id number]) [place] [id number] Care Teams Crime Scene Analyst Relationship Specialty Start Date End Date Lynette Gipson MD [address] [place] [phone] PCP - General Internal Medicine 10/16/24
--- OUTSIDE RECORDS SUMMARY | 2025-04-04 12:52 | XMS_ITS | Clinical Summary ---
Author Organization [facility] Address [address] [place] [address] Phone Care Team Providers Care Human Resources Benefits Manager Name Role Phone Lynette Gipson MD Primary Care Provide r Social History Tobacco Use Types Packs/Day Years Used Date Smoking Tobacco: Never Assessed Comments Unknown Sex and Gender Information Value Date Recorded Sex Assigned at Not on file Legal Sex Female 8:28 AM EST Gender Identity Not on file Sexual Orientation Not on file Plan of Treatment Upcoming Encounters Date Type Department Care Team ([facility] Contact Info) Description 05/22/2025 9:00 AM EDT Consult Orthopedic Surgery - [place] [address] [phone] Angel Holley, DPM [address] [address] Health Maintenance Due Date Last Done Comments Diabetes: Annual GFR (Glomer ular Filtration Rate) 1955 Diabetes: Annual Foot Exam 02/22/1966 Diabetes: Annual Retina Eye Exam 02/22/1966 DTaP,Tdap,and Td Vaccines (1 - Tdap) 02/22/1975 Pneumococcal Vaccine: 50+ Ye ars (1 of 2 - PCV) 02/22/1975 Zoster Vaccines (1 of 2) 02/22/2006 Breast Cancer Screening 11/26/2019 11/25/2017 Cholesterol Screening (Lipid Panel) 09/13/2023 Colorectal Cancer Screening: Colonoscopy 09/13/2023 Falls Risk Assessment 09/13/2023 Hepatitis C Screening 09/13/2023 Medicare Annual Wellness Visit 09/13/2023 Osteoporosis Screening (Bone Density Screening) 09/13/2023 Social Influencers of Health Screening 09/13/2023 COVID-19 Vaccine (1 - 2023-2 5 season) 2024 Depression Screening 08/15/2024 Diabetes: Annual Urine Albumin-Creatinine Ratio (uACR) 01/03/2025 Diabetes: Blood Sugar Contro l Test (HGBA1C) 01/03/2025 Influenza Vaccine (#1) 2025 RSV Immunization Adult Patie nts (1 [...] Procedure Name Priority Date/Time Associated Diagnosis Comments [facility] SCREENING [facility]ITAL Routine 11/25/2017 4:05 PM EDT Encounter for screening mammogram for malignant neoplasm of breast from Last 3 Months or Most Recently Relevant to Health Maintenance Results * [facility] SCREENING DIGITAL (11/25/2017 4:05 PM EDT) Anatomical Region Laterality Modality Mammography 11/25/2017 12:5 2 PM EDT Narrative 11/25/2017 4:05 PM EDT Diagnostic Imaging Department [address] [place] [id number] Patient: MADELEINE JIMÉNEZ /Age/Sex: 1955 - 62 - F Unit#: [id number] Location/Status: SPDIMAM/REG CLI Mnemonic/Ordering Site: [facility] Ordering Physician: EVA DOMÍNGUEZ DO [place] Screening [...] target due date for the next mammogram: CPT II 7025F [id number] Dictating Physician: MAG MULLINS MD Electronically Signed by: MAG MULLINS MD Dic Date/Time: 11/25/17 1557 Sign date/Time: 11/25/17 1605 Procedure Note Mag Mullins MD - 08/03/2022 Diagnostic Imaging Department [address] [place] [address] Patient: JESSYMADELEINE /Age/Sex: 1955 - 62 - F Unit#: [id number] Location/Status: SPDIMAM/REG CLI Mnemonic/Ordering Site: [facility] Ordering Physician: EVA DOMÍNGUEZ DO [place] Screening [...] for the next mammogram: CPT II 7025F [id number] Dictating Physician: MAG MULLINS MD Electronically Signed by: MAG MULLINS MD Dic Date/Time: 11/25/17 1557 Sign date/Time: 11/25/17 1600 Eva Domínguez DO IMG BI PROCEDURES Final Res ult from Last 3 Months or Most Recently Relevant to Health Maintenance Insurance [facility] MEDICARE Member Subscriber Plan / Payer ( fective 2022-Present) Name:Madeleine Cartagena Relation to Subscriber:Self Name:Madeleine Jiménez Payer ID:[id number] Group ID:[id number] Type:Not on file Address: [address] [place] [address] MEDICAID - [place] Advance Directives Documents on File Type Date Recorded Patient Patient Registration Manager Expl anation Health Care Decision (hx) 06/01/2023 AD SMITH DIRECTIVE Health Care Decision (hx) 06/01/2023 AD SMITH DIRECTIVE Care Teams Human Resources Benefits Manager Relationship Specialty Start Date End Date Lynette Gipson MD [address] [phone] PCP - General Internal Medicine 01/03/25
--- OUTSIDE RECORDS SUMMARY | 2025-04-04 12:52 | XMS_ITS | Clinical Summary ---
Author Organization [employer] Address [address] [facility] [address] [place] [address] Care Team Providers Care Hospice Executive Director Name Role Phone Lynette Gipson MD Primary Care Provide r Angelo Dahl PharmD Unavailable [phone] Allergies No known active allergies Medications triamcinolone (Kenalog) 0.1 % creamIndications :Rash and [...] per day. 30 tablet 11 10/05/19 25 026 Active Alcohol Swabs (Alcohol Prep) 70 % [...] by mouth at bedtime. 10/17/19 25 Active Continuous Glucose Sensor (FreeStyle Mingo [...] with long-term current use of insulin (CMS/HCC) USE TO TEST BLOOD SUGAR THREE TIMES A DAY 100 each 11/16/19 25 Active glucose blood (FreeStyle Precision Wiliam Test) test stripIndications :Type 2 diabetes mellitus with other specified complication, with long-term current use of insulin (CMS/HCC) USE TO TEST BLOOD SUGAR THREE TIMES A DAY IN CASE CGM FAILURE OR EXTREMES OF BG 100 each 11/16/19 25 026 Active amLODIPine (Norvasc) 10 MG tabletIndication s:Essential [...] stage 3a or 3b CKD (CMS/HCC) Inject 22 Units under the skin at bedtime. 6 mL 12/25/19 25 Active Continuous Glucose Custom Wood Stair Builder (FreeStyle Mingo 3 [place]) deviceIndication s:Type 2 diabetes mellitus with other specified complication, with long-term current use of insulin (CMS/HCC) USE DIRECTED 1 each 01/01/20 25 Active pen needle 31G x 5 mm miscIndications: Type 2 diabetes mellitus with other specified complication, with long-term current use of insulin ([facility]) Use as instructed 100 each 12 01/03/20 25 026 Active potassium phosphate, monobasic, (K-Phos) 500 MG tabletIndication s:Hypophosphatem ia Take 1 tablet (500 mg) by mouth 3 times daily. 21 tablet 01/04/20 25 026 Active insulin lispro (HumaLOG) 100 UNIT/ML injectionIndicat ions:Type 2 diabetes mellitus with other specified complication, with long-term current use of insulin ([facility]) Inject 10 units subcutaneously before breakfast, 12 units before lunch and 12 units before dinner. 15 mL 5 03/01/20 25 Active Active Problems Problem Noted Date Diagnosed Date Acute pancreatitis 11/15/2024 Assessment & Plan (11/15/2024 12:17 PM EDT): BMP, electrolytes and triglycerides will be rechecked Acute kidney injury superimposed on CKD ([facility] ) 11/15/2024 Assessment & Plan (11/15/2024 12:17 [...] 04/14/2023 Encounter for preventative adult health care chioma souza 11/08/2022 Assessment & Plan (11/08/2022 9:36 AM [...] Encounters Date Type Department Care Team Description 04/04/2025 10:45 AM EDT Office Visit [address] [address] Lynette Gipson MD Essential hypertension (Primary Dx); Type 2 diabetes mellitus with other specified complication, with long-term current use of insulin (CMS/HCC); Type 2 diabetes mellitus with stage 3 chronic kidney disease, with long-term current use of insulin, unspecified whether stage 3a or 3b CKD (CMS/HCC) 04/04/2025 Travel 04/02/2025 Telephone [facility] [address] [place], [place] [phone] Lynette Gipson MD Chart Prep 03/28/2025 Patient Outreach [address] [address] Lynette Gipson MD Pre-visit Planning (SDOH screening negative and Tobacco screening negative) 02/28/2025 Travel 02/16/[address] [address] Lynette Gipson MD Type 2 diabetes mellitus with other specified complication, with long-term current use of insulin ([facility]) 01/03/2025 Results Follow-Up [address] [address] Lynette Gipson MD POCT Glucose, Basic Metabolic Panel, Magnesium, Additional followed-up results: 4 01/03/2025 Orders Only [address] [address] Lynette Gipson MD Hypophosphatemia 01/02/2025 10:30 AM EDT Office Visit [address] [address] Lynette Gipson MD Screening for colon cancer (Primary Dx); Type 2 diabetes mellitus with other specified complication, with long-term current use of insulin ([facility]/HCC); Encounter for screening mammogram for malignant neoplasm of breast; Essential hypertension; Type 2 diabetes mellitus with stage 3 chronic kidney disease, with long-term current use of insulin, unspecified whether stage 3a or 3b CKD (CMS/HCC); Mixed anxiety and depressive disorder 01/02/[address] [address] Lynette Gipson MD mammo order faxed 01/02/2025 Travel from Last 3 Months Immunizations Immunization Administration Dates Next Due Influenza High-dose Quadrivalent Preservative Fr ee 06/21/2022 Influenza Quadrivalent Adjuvanted 06/08/2023 Influenza injectable quadrivalent preservative f ree 06/27/2020 Moderna Covid-19 Vaccine 12+ 07/25/2023 Pfizer Covid-19 Vaccine 12+ 03/31/2022, Pfizer Covid-19 Vaccine 12+ mrat-sucrose (Posadas C ap) 03/31/2022,03/10/2022 Pneumococcal Conjugate PCV [...] Access Q2 Not on file 04/16/2024 Comments No Sex and Gender Information Value Date Recorded Sex Assigned at Female 06/14/2022 10:37 AM EDT Legal Sex Female 10:37 AM EDT Gender Identity Female 06/14/2022 10:37 AM EDT Sexual Orientation Straight 06/14/2022 10 :37 AM EDT Last Filed Vital Signs Vital Sign Reading Time Taken Comments Blood Pressure 138/80 04/04/2025 10:34 AM EDT Pulse 88 04/04/2025 10:34 AM EDT Temperature 36.8 C (98.3 F) 04/04/2025 10:34 AM EDT Respiratory Rate 19 04/04/2025 10:34 AM EDT Oxygen Saturation 96% 04/04/2025 10:34 AM EDT Inhaled Oxygen Concentration - - Weight 56.7 kg (125 lb) 04/04/2025 10:34 AM EDT Height 152.4 cm (5') 04/04/2025 10:34 AM EDT Body Mass Index 24.41 04/04/2025 10:34 AM EDT Plan of Treatment Upcoming Encounters Date Type Department Care Team (Late st Contact Info) Description 05/27/2025 9:30 AM EDT Office Visit [facility] OPTOMETRY [address] [place] [address] Alfredito, Domi, OD [address] [place] [address] 06/06/2025 11:00 AM EDT Medication Management [facility] MEDICINE [address] [place] [address] Angelo Dahl, PharmD [address] [place] [address] Health Maintenance Due Date Last Done Comments CT Colonography 1955 Colonoscopy 1955 Colorectal Cancer Screening 1955 FIT DNA/Cologuard 1955 FIT 1955 FOBT 1955 Sigmoidoscopy 1955 DTaP/Tdap/Td Vaccines (1 - Tdap) 02/22/1975 Zoster Vaccines (1 of 2) 02/22/2006 RSV Patients and Patients Aged 60 years or older (1 - Risk 60-74 years 1-dose series) 2016 Mammogram 11/19/2022 11/19/2021 COVID-19 Vaccine (2023- season) 2024 07/25/2023, 03/31/2022, 03/31/2022, Additional history exists Eye Exam 01/03/2025 01/03/2023, 12/14, 01/03/2023, Additional history exists Diabetes: Foot Exam 03/29/2025 03/29/2024, 11/08/2022, 11/08/2022 Influenza Vaccine (#1) 2025 , 06/21/2022, 06/27/2020 Diabetes: Hemoglobin A1C 05/31/2025 025, 11/21/2024, 06/29/2024, Additional history exists Alcohol/Substance Use Screening 06/29/2025 06/29/2024 Lipid Panel 11/15/2025 11/15/2024, 09/16, 09/16/2023, Additional history exists Depression Screening 01/02/2026 01/02/2025, 01/03/20 25 SDOH Screening 03/28/2026 03/28/2025 Tobacco Screening 04/04/2026 04/04/2025 Pneumococcal Vaccine: 50+ Years Completed 06/21/2022 Hepatitis [...] Date/Time Associated Diagnosis Comments POCT GLUCOSE Routine 04/04/2025 10:35 AM EDT Type 2 diabetes mellitus with other specified complication, with long-term current use of insulin (CMS/HCC) POCT GLYCATED HEMOGLOBIN, TOTAL Routine 02/28/2025 11:06 AM EDT Type 2 diabetes mellitus with other specified complication, with long-term current use of insulin (CMS/[facility]) PHOSPHATE ( PHOSPHORUS) Routine 01/02/2025 10:24 AM EDT Hypophosphatemia BASIC METABOLIC PANEL Routine 01/02/2025 10:24 AM EDT Hypophosphatemia POCT GLUCOSE Routine 01/02/2025 9:53 AM EDT Type 2 diabetes mellitus with other specified complication, with long-term current use of insulin (CMS/[facility]) LIPID PANEL, STANDARD Routine 11/15/2024 10:22 AM EDT Acute pancreatitis, unspecified complication status, unspecified pancreatitis type HEPATITIS C AB W/REFL TO HCV RNA, QN, PCR Routine 10/05/2024 10:42 AM EST Type 2 diabetes mellitus with stage 3 chronic kidney disease, with long-term current use of insulin, unspecified whether stage 3a or 3b CKD (CMS/[facility]) Resistant hypertension MAMMOGRAM GENERIC Routine 11/19/2021 3:3 0 PM EDT from Last 3 Months or Most Recently Relevant to Health Maintenance Results * POCT Glucose (04/04/2025 10:35 AM EDT) Only the most recent of2 resultswithin the time period is included. Glucose Blood, POC 98 60 - 200 mg/dL QC Media Lot # [id number] Lot# Expiration Date [id number] Blood Capillary blood specimen / Unknown 04/04/2025 10:35 AM EDT Lynette Antonio MD POINT OF CARE TEST EN TER/EDIT ORDERABLES Final Result * (ABNORMAL) POCT HGB A1C (02/28/2025 11:06 AM EDT) Hemoglobin A1C 7.2(A) 4.0 - 5.7 % QC Media Lot # [id number] Lot# Expiration Date Blood 02/28/2025 11:0 6 AM EDT Lynette Antonio MD POINT OF CARE TEST EN TER/EDIT ORDERABLES Final Result * (ABNORMAL) Phosphate (As Phosphorus) (01/02/2025 10:24 AM EDT) Pathologist [facility] Phosphorus 2.3(L) 2.7 - 4.5 mg/dL [facility] Blood Venous blood specimen / Unknown 01/02/2025 10:24 AM EDT 01/02/2025 11:03 AM EDT Lynette Antonio MD LAB BLOOD ORDERABLES Final Result [facility] [address] [place] [address] [phone] * (ABNORMAL) Basic Metabolic Panel (01/02/2025 10:24 AM EDT) Pathologist [facility] Sodium 139 135 - 145 mmol/L [facility] Potassium 3.9 3.3 - 5.1 mmol/L [facility] Chloride 105 96 - 108 mmol/L [facility] Carbon Dioxide 22 22 - 29 mmol/L [facility] Anion Gap 16 12 - 20 [facility] Urea Nitrogen (BUN) 22(H) 9 - 16 mg/dL [facility] Creatinine, Serum 1.40 0.5 - 1.4 mg/dL [facility] Estimated Glomerular Filt Rate 37 [facility] Comment:Chronic Kidney Disea se: Estimated GFR < 60 mL/min/1.60n1Uxxsuc Kidney Disease: Estimated GFR < 15 mL/min/1.73m2 Glucose 135(H) 60 - 115 mg/dL [facility] Calcium 9.6 8.4 - 10.2 mg/dL [facility] Blood Venous blood specimen / Unknown 01/02/2025 10:24 AM EDT 01/02/2025 11:03 AM EDT us Lynette Antonio MD LAB BLOOD ORDERABLES Final Result [facility] [address] [place] [phone] * (ABNORMAL) Lipid Panel, Standard (11/15/2024 10:22 AM EDT) Triglycerides 437(H) <150 mg/dL [facility] Comment:Desirable Triglyceri de: less than 150 mg/dLBorderline High Triglyceride 150-199 mg/dLHigh Triglyceride: 200-499 mg/dLVery High Triglyceride: greater than or equal to 5OO mg/dL Cholesterol 185 <200 mg/dL [facility] Comment:Desirable Cholestero l: less than 200 mg/dLBorderline High Cholesterol: 200-239 mg/dLHigh Cholesterol: greater than 239 mg/dL LDL Cholesterol Calculated TNP <100 mg/dL [facility] Comment:Unable to calculate the LDL. The formula of Friedwald,Valente, and Ish is only valid if the triglycerides areless than 400 mg/dl. HDL Cholesterol 28(L) >40 mg/dL [facility] Comment:Desirable HDL: great er than 40 mg/dL Note: This HDL assay may give artificially low results in patients with liver disease. Blood Venous blood specimen / Unknown 11/15/2024 10:22 AM EDT 11/15/2024 11:30 AM EDT us Lynette Antonio MD LAB BLOOD ORDERABLES Final Result Performing Organization Address City/[facility]/ZIP Co de Phone Number [facility] [address] [place] [phone] [phone] * Hepatitis C Antibody with Reflex to HCV, RNA, Quantitative, Real-Time PCR (10/05/2024 10:42 AM EST) Hepatitis C Antibody Nonreactive Nonreactive [facility] Comment:Antibodies to HCV no t detected; does not exclude early acuteHCV infection. Blood Venous blood specimen / Unknown 10/05/2024 10:42 AM EST 10/05/2024 1:06 PM EST Lynette Antonio MD LAB BLOOD ORDERABLES Final Result Performing Organization Address [facility] Co de Phone Number [facility] [address] [place] [phone] [phone] * Mammography Report 1 (11/19/2021 3:30 PM EDT) Anatomical Region Laterality Modality Breast Bilateral Mammography 11/19/2021 3:30 PM EDT Narrative 12/02/2021 7:38 AM EDT Refer to the Notes tab for result details [facility] Procedure: Mammography Report 1 Procedure Note Provider, MD David - 11/07/2022 Refer to the Notes tab for result details [facility] Procedure: Mammography Report 1 Lynette Antonio MD IMG BI PROCEDURES Fin al Result from Last 3 Months or Most Recently Relevant to Health Maintenance Insurance [facility] [employer] (HMO D-SNP) [place] [id number] Care Teams Hospice Executive Director Relationship Specialty Start Date End Date Lynette Gipson MD [address] [place] [address] PCP - General Family Medicine 09/24/20 Angelo Dahl, PharmD [address] [place] [address] Pharmacist Internal Medicine 11/21/24 [facility] 11/09/24
[2025-04-04 14:02] LABS: Microalbum/Creatinine Ratio Ur 357.2 ug/mg cr (<30)
== END 2025-04-04 11:09 | disposition home or self-care (01) ==
LOC: HO.HHCL 11:08
PROVIDERS: PCP Internal Medicine; Visit Provider Internal Medicine
DX: E11.69 Type 2 diabetes mellitus with other specified complication (principal); E83.39 Other disorders of phosphorus metabolism; Z79.4 Long term (current) use of insulin
CPT/HCPCS: 36415; 82043; 82570; 84100

== ENCOUNTER 2025-06-12 15:03 | Outpatient (REF) | payer OTHER, SELFPAY ==
--- NOTE | ~2025-06-12 | US_ITS ---
EXAMINATION: US EXTRACRANIAL CAROTID DUPLEX, BILATERAL CLINICAL INFORMATION: Hollenhorst plaque, embolic cholesterol retinal disease COMPARISON: None available. TECHNIQUE: Real-time ultrasound and Doppler techniques (integrating B-mode 2-D vascular images, Doppler spectral analysis and color-flow Doppler imaging) were utilized to interrogate the extracranial carotid arteries, the vertebral arteries and proximal subclavian arteries bilaterally. The degree of stenosis is determined by criteria similar to NASCET. FINDINGS: Right Side: 1. There is moderate atherosclerotic plaque seen in the bifurcation/proximal ICA region. 2. The common carotid artery PSV proximally is 76 cm/s and distally 71 cm/s. 3. The proximal internal carotid artery velocities are 83 cm/s systolic and 13 cm/s diastolic. 4. The proximal external carotid artery PSV is 101 cm/s. 5. The vertebral artery shows antegrade flow. 6. The subclavian artery waveforms are triphasic. ICA/CCA ratio 1.1 Left Side: 1. There is no atherosclerotic plaque seen in the bifurcation/proximal ICA region. 2. The common carotid artery PSV proximally is 164 cm/s and distally 3 cm/s. 3. The proximal internal carotid artery velocities are 86 cm/s systolic and 19 cm/s diastolic. 4. The proximal external carotid artery PSV is 98 cm/s. 5. The vertebral artery shows antegrade flow. 6. The subclavian artery waveforms are triphasic. ICA/CCA ratio 0.5 US/US carotid duplex BI IMPRESSION: 1. RIGHT: No hemodynamically significant stenosis, less than 50% 2. LEFT: No hemodynamically significant stenosis, less than 50%. Electronically signed by: Juan A Jha MD 06/12/2025 04:02 PM EDT
--- OUTSIDE RECORDS SUMMARY | 2025-06-12 19:33 | XMS_ITS | Encounter Summary ---
Author Organization [employer] Address [address] [place] [address] Care Team Providers Care Addresser Name Role Phone Lynette Gipson MD Primary Care Provide r Angelo Dahl PharmD Unavailable [phone] Encounter Details Date Type Department Care Team ([facility] st Contact Info) Description 06/21/2024 Community Care Management [facility] MEDICINE [address] [place] [address] [employer] Link, Physician, MD Social History Tobacco [...] t he electric, gas, oil or water Who Works Around You threatened to shut off services in your [...] Care Team (Late st Contact Info) Description 07/05/2025 9:30 AM EST Office Visit [facility] MEDICINE [address] [place] [phone] Lynette Gipson MD [address] [place] [address] 08/29/2025 11:00 AM EST Medication Management [facility] MEDICINE [address] [place] [address] Angelo Dahl, PharmD [address] [place] [address] 09/20/2025 1:00 PM EST Office Visit [facility] OPTOMETRY [address] [place] [address] Alfredito, Domi, OD [address] [place] [address] documented as of this encounter Visit Diagnoses Not on filedocumented in this encounter Additional Health Concerns Assessment Noted Time PHQ-9 Depression Total Score: 0 12/28/19 24 10:29 AM EDT documented as of this encounter Care Teams Addresser Relationship Specialty Start Date End Date Lynette Gipson MD [address] [place] [phone] PCP - General Family Medicine 09/24/20 Angelo Dahl, PharmD [address] [place] [address] Pharmacist Internal Medicine 11/21/24 [facility] 11/09/24 documented as of this encounter
--- OUTSIDE RECORDS SUMMARY | 2025-06-12 19:33 | XMS_ITS | Clinical Summary ---
Author Organization [facility] Address [address] [facility] [address] [place] [address] Phone Care Team Providers Care Degreasing Solution Reclaimer Name Role Phone Lynette Gipson MD Primary [...] time each day Active ergocalciferol 1.25 MG (41806 UT) capsule TAKE 1 CAPSULE (50,000 UNITS [...] age to complete this topic Insurance Medicaid [place] [facility] ([id number]) [place] [id number] Care Teams Degreasing Solution Reclaimer Relationship Specialty Start Date End Date Lynette Gipson MD [address] [place] [phone] PCP - General Internal Medicine 10/16/24
--- OUTSIDE RECORDS SUMMARY | 2025-06-12 19:33 | XMS_ITS | Clinical Summary ---
Author Organization [facility] Address [address] [place] [address] Phone Care Team Providers Care Flue Tile Press Operator Name Role Phone Lynette Gipson MD [...] Health Maintenance Due Date Last Done Comments Colorectal Cancer Screening: Colonoscopy 1955 DTaP,Tdap,and Td Vaccines (1 - Tdap) 02/22/1975 Pneumococcal Vaccine: 50+ Ye ars (1 of 2 - PCV) 02/22/1975 Zoster Vaccines (1 of 2) 02/22/2006 Breast Cancer Screening 11/26/2019 11/25/2017 Falls Risk Assessment 09/13/2023 Hepatitis C Screening 09/13/2023 Medicare Annual Wellness Visit 09/13/2023 Osteoporosis Screening (Bone Density Screening) 09/13/2023 Social Influencers of Health Screening 09/13/2023 Depression Screening 08/15/2024 COVID-19 Vaccine ( - 2023-2 5 season) 2025 Influenza Vaccine (#1) 2025 RSV Immunization Adult [...] Procedure Name Priority Date/Time Associated Diagnosis Comments [facility] SCREENING DIGITAL Routine 11/25/2017 4:05 PM EDT Encounter for screening mammogram for malignant neoplasm of breast from Last 3 Months or Most Recently Relevant to Health Maintenance Results * [facility] SCREENING DIGITAL (11/25/2017 4:05 PM EDT) Anatomical Region Laterality Modality Mammography 11/25/2017 12:5 2 PM EDT Narrative 11/25/2017 4:05 PM EDT [facility] Diagnostic Imaging Department [address] [place] [address] Patient: JIMÉNEZMADELEINE D.O.B./Age/Sex: 1955 - 62 - F Unit#: [id number] Location/Status: [facility]/REG CLI Mnemonic/Ordering Site: [facility] Ordering Physician: EVA DOMÍNGUEZ DO [facility] Screening Digital - 11/25/17 - 1328 INDICATION: [...] for the next mammogram: CPT II 7025F [id number] Dictating Physician: MAG MULLINS MD Electronically Signed by: MAG MULLINS MD Dic Date/Time: 11/25/17 1557 Sign date/Time: 11/25/17 1605 Procedure Note Mag Mullins MD - 08/03/2022 [facility] Diagnostic Imaging Department [address] [place], [place] [phone] Patient: JIMÉNEZMADELEINE.O.B./Age/Sex: 1955 - 62 - F Unit#: [id number] Location/Status: [facility] CLI Mnemonic/Ordering Site: [facility] Ordering Physician: EVA DOMÍNGUEZ DO [facility] Screening [...] for the next mammogram: CPT II 7025F [id number] Dictating Physician: AMG MULLINS MD Electronically Signed by: MAG MULLINS MD Dic Date/Time: 11/25/17 1558 Sign date/Time: 11/25/17 1608 Eva Domínguez DO IMG BI PROCEDURES Final Res ult from Last 3 Months or Most Recently Relevant to Health Maintenance Insurance [facility] MEDICARE Member Subscriber Plan / Payer (Ef fective 2022-Present) Name:Madeleine Cartagena Relation to Subscriber:Self Name:Madeleine Jiménez Payer ID:[id number] Group ID:[id number] Type:Not on file Address: [address] [place] [phone] MEDICA[place] Advance Directives Documents on File Type Date Recorded Patient Manager Real Estate Expl anation Health Care Decision (hx) 06/01/2023 AD SMITH DIRECTIVE Health Care Decision (hx) 06/01/2023 AD SMITH DIRECTIVE Care Teams Flue Tile Press Operator Relationship Specialty Start Date End Date Lynette Gipson MD [address] [place] [phone] PCP - General Internal Medicine 01/03/25
--- OUTSIDE RECORDS SUMMARY | 2025-06-12 19:33 | XMS_ITS | Clinical Summary ---
Author Organization [employer] Address [address] [facility] 7t [place] [address] Care Team Providers Care Fabric Coating Supervisor Name Role Phone Lynette Gipson MD Primary Care Provide r Angelo Dahl PharmD Unavailable [phone] Allergies No known active allergies Medications metoprolol succinate XL (Toprol-XL) 25 MG 24 hr tabletIndicatio ns:Essential hypertension Take 1 tablet (25 mg) by mouth Once per day. Do not crush or chew. 90 tablet 3 024 Active atorvastatin (Lipitor) 40 MG tabletIndicatio ns:Dyslipidemia associated with type 2 diabetes mellitus (HCC) Take 1 tablet (40 mg) by mouth in the morning. 90 tablet 3 025 Active fenofibrate (Tricor) 145 MG tabletIndicatio ns:Dyslipidemia associated with type 2 diabetes mellitus (HCC) Take 1 tablet (145 mg) by mouth Once per day. 30 tablet 11 025 2025 Active Alcohol Swabs (Alcohol Prep) 70 % pads Use as directed four times a day 025 Active clonazePAM (KlonoPIN) 1 MG tablet Take 1 tablet by mouth 2 times daily. 025 Active FLUoxetine (PROzac) 40 MG capsule Take 1 capsule by mouth in the morning. 025 Active traZODone (Desyrel) 50 MG tablet Take 1 tablet by mouth at bedtime. 025 Active Continuous Glucose Sensor (FreeStyle Mingo 3 Plus Sensor) miscIndications :Type 2 diabetes mellitus with other specified complication, with long-term current use of insulin (HCC) 1 each every 15 days. Apply 1 every 15 days as directed for CGM 2 each 025 Active TRUEplus Lancets 33G miscIndications :Type 2 diabetes mellitus with other specified complication, with long-term current use of insulin (HCC) USE TO TEST BLOOD SUGAR THREE TIMES A DAY 100 each 11 025 Active glucose blood (FreeStyle Precision Wiliam Test) test stripIndication s:Type 2 diabetes mellitus with other specified complication, with long-term current use of insulin (HCC) USE TO TEST BLOOD SUGAR THREE TIMES A DAY IN CASE CGM FAILURE OR EXTREMES OF BG 100 each 11 025 2025 Active FLUoxetine (PROzac) 20 MG capsule TAKE 1 CAPSULE IN THE MORNING 025 Active Multiple Vitamin (Daily-Darian Multivitamin) tabletIndicatio ns:Type 2 diabetes mellitus with stage 3 chronic kidney disease, with long-term current use of insulin, unspecified whether stage 3a or 3b CKD (HCC) Take 1 tablet by mouth in the morning. 90 tablet 3 025 Active Continuous Glucose Form Coverer (FreeStyle Mingo 3 [place]) deviceIndicatio ns:Type 2 diabetes mellitus with other specified complication, with long-term current use of insulin ([facility]) USE DIRECTED 1 each 025 Active pen needle 31G x 5 mm miscIndications :Type 2 diabetes mellitus with other specified complication, with long-term current use of insulin ([facility]) Use as instructed 100 each 12 025 2025 Active insulin lispro (HumaLOG) 100 UNIT/ML injectionIndica tions:Type 2 diabetes mellitus with other specified complication, with long-term current use of insulin ([facility]) Inject 10 units subcutaneously before breakfast, 12 units before lunch and 12 units before dinner. 15 mL 5 025 Active insulin glargine (Lantus SoloStar) 100 UNIT/ML penIndications: Type 2 diabetes mellitus with stage 3 chronic kidney disease, with long-term current use of insulin, unspecified whether stage 3a or 3b CKD (HCC) Inject 22 Units under the skin at bedtime. 6 mL 11 025 Active amLODIPine (Norvasc) 10 MG tabletIndicatio ns:Essential hypertension TAKE 1 TABLET BY MOUTH EVERY MORNING 30 tablet 5 Active ARIPiprazole (Abilify) 2 MG tablet Take 2 mg by mouth in the morning. Active empagliflozin (Jardiance) 10 MGIndications:T ype 2 diabetes mellitus with stage 3 chronic kidney disease, with long-term current use of insulin, unspecified whether stage 3a or 3b CKD (HCC) Take 1 tablet (10 mg) by mouth Once per day. 30 tablet 11 025 2025 Active triamcinolone (Kenalog) 0.1 % creamIndication s:Rash and nonspecific skin eruption APPLY TO AFFECTED AREA TWICE A DAY 300 g 023 2024 Discontinued(M ed list cleanup (will not trigger notification to Pharmacy)) B-D UF III MINI PEN NEEDLES 31G X 5 MM misc Inject under the skin. Four times a day 025 2024 Discontinued(M ed list cleanup (will not trigger notification to Pharmacy)) amLODIPine (Norvasc) 10 MG tabletIndicatio ns:Essential hypertension Take 1 tablet (10 mg) by mouth Once per day. 30 tablet 5 025 2024 Discontinued potassium phosphate, monobasic, (K-Phos) 500 MG tabletIndicatio ns:Hypophosphat emia Take 1 tablet (500 mg) by mouth 3 times daily. 21 tablet 025 2024 Discontinued(M ed list cleanup (will not trigger notification to Pharmacy)) Active Problems Problem Noted Date Diagnosed Date Acute pancreatitis 11/15/2024 Assessment & Plan (11/15/2024 12:17 PM EDT): BMP, electrolytes and triglycerides will be rechecked Acute kidney injury superimposed on CKD 11/16/19 Assessment & Plan (11/15/2024 12:17 PM EDT): [...] day Essential hypertension 11/05/2022 Assessment & Plan (04/04/2025 12:55 PM EDT): I advised: - Aerobic exercise to reduce BP. Initial [...] consulting health care provider Assessment & Plan (01/02/2025 11:07 AM EDT): [...] disorder 11/05/2022 Stage 3 chronic kidney disease (CMS/HCC) 023 Stage 3b chronic kidney disease (CMS/HCC) 2022 Type 2 diabetes mellitus wit h kidney complication, with long-term current use of insulin 11/05/2022 Assessment & Plan (04/04/2025 12:57 PM EDT): Diabetes is: controlled - Lab Results Component Value Date HGBA1C 7.2 (A) 02/28/2025 HGBA1C 11.0 (A) 11/21/2024 HGBA1C 6.9 (A) 06/29/2024 - Lab Results Component Value Date MICROALBUR 2.3 03/12/2022 CREATININE 1.40 01/02/2025 -Changes: continue to follow with pharmacy CDTM - Diabetic eye exam:upcoming appointment - Diabetic foot exam:upcoming appointment - Continue lifestyle modifications - Continue current medications - Follow up: 3 months Assessment & Plan (01/02/2025 11:08 AM EDT): [...] Encounters Date Type Department Care Team Description 06/06/2025 Travel 05/27/2025 9:30 AM EDT Office Visit [facility] [address] [place] [address] [phone] Alfredito, Domi, OD 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 (HCC) (Primary Dx); Subretinal fluid; Hollenhorst plaque, left eye; White without pressure of peripheral retina of right eye; Pseudophakia of both eyes; Presbyopia 05/27/2025 Travel 05/20/2025 Refill [facility] [address] [place] [address] Angelo Dahl, PharmD Essential hypertension 05/07/2025 Refill [facility] [address] [place] [address] Lynette Gipson MD Type 2 diabetes mellitus with stage 3 chronic kidney disease, with long-term current use of insulin, unspecified whether stage 3a or 3b CKD ([facility]) 04/04/2025 10:45 AM EDT Office Visit [address] [address] Lynette Gipson MD Essential hypertension (Primary Dx); Type 2 diabetes mellitus with stage 3 chronic kidney disease, with long-term current use of insulin, unspecified whether stage 3a or 3b CKD ([facility]/HCC) 04/04/2025 Orders Only [address] [phone] Lynette Gipson MD 04/04/2025 Travel 04/02/2025 Telephone [facility] [address] [place], [place] [phone] Lynette Gipson MD Chart Prep 03/28/2025 Patient Outreach [address] [address] Lynette Gipson MD Pre-visit Planning (SDOH screening negative and Tobacco screening negative) from Last 3 Months Immunizations Immunization Administration [...] Sign Reading Time Taken Comments Blood Pressure 140/72 06/06/2025 11:31 AM EDT Pulse 59 06/06/2025 11:31 AM EDT Temperature 36.8 C (98.3 F) [...] Description 07/05/2025 9:30 AM EST Office Visit [facility] [address] [place] [address] Lynette Gipson MD [address] [place] [address] 08/29/2025 11:00 AM EST Medication Management [facility] [address] [place] [address] Angelo Dahl, PharmD [address] [place] [address] 09/20/2025 1:00 PM EST Office Visit [facility] [address] [place] [address] Domi Glaser, OD [address] [place] [address] Health Maintenance Due Date Last Done Comments CT Colonography 1955 Colonoscopy 1955 Colorectal Cancer Screening 1955 FIT DNA/Cologuard 1955 FIT 1955 FOBT 1955 Sigmoidoscopy 1955 DTaP/Tdap/Td Vaccines (1 - Tdap) 02/22/1975 Zoster Vaccines (1 of 2) 02/22/2006 RSV Patients and Patients Aged 60 years or older (1 - Risk 60-74 years 1-dose series) 2016 Mammogram 11/19/2022 11/19/2021 Diabetes: Foot Exam 03/29/2025 03/29/2024, 11/08/2022, 11/08/2022 COVID-19 Vaccine ( season) 2025 07/25/2023, 03/31/2022, 03/31/2022, Additional history exists Influenza Vaccine (#1) 2025 , 06/21/2022, 06/27/2020 Alcohol/Substance Use Screening 06/29/2025 06/29/2024 Diabetes: Hemoglobin A1C 09/06/2025 025, 02/28/2025, 11/21/2024, Additional history exists Lipid Panel 11/15/2025 11/15/2024, 09/16, 09/16/2023, Additional history exists Depression Screening 01/02/2026 01/02/2025, 01/03/20 25 SDOH Screening 03/28/2026 03/28/2025 Eye Exam 05/27/2026 05/27/2025, 05/15, 05/27/2025, Additional history exists Tobacco Screening 05/27/2026 05/27/2025 Pneumococcal Vaccine: 50+ Years Completed 06/21/2022 Hepatitis [...] Procedure Name Priority Date/Time Associated Diagnosis Comments VASC US CAROTID ARTERY DUPLEX BILATERAL Urgent 06/12/2025 3:28 PM EDT Hollenhorst plaque, left eye POCT GLYCATED HEMOGLOBIN, TOTAL Routine 06/06/2025 11:41 AM EDT Type 2 diabetes mellitus with stage 3 chronic kidney disease, with long-term current use of insulin, unspecified whether stage 3a or 3b CKD (HCC) OCT, RETINA - OU - BOTH EYES Routine 05/27/2025 12:37 PM EDT 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 (HCC) ALBUMIN, RANDOM URINE W/CREATININE Routine 04/04/2025 11:15 AM EDT PHOSPHATE ( PHOSPHORUS) Routine 04/04/2025 11:15 AM EDT Hypophosphatemia POCT GLUCOSE Routine 04/04/2025 10:35 AM EDT Type 2 diabetes mellitus with stage 3 chronic kidney disease, with long-term current use of insulin, unspecified whether stage 3a or 3b CKD (CMS/HCC) LIPID PANEL, STANDARD Routine 11/15/2024 10:22 AM EDT Acute pancreatitis, unspecified complication status, unspecified pancreatitis type HEPATITIS C AB W/REFL TO HCV RNA, QN, PCR Routine 10/05/2024 10:42 AM EST Type 2 diabetes mellitus with stage 3 chronic kidney disease, with long-term current use of insulin, unspecified whether stage 3a or 3b CKD (CMS/HCC) Resistant hypertension MAMMOGRAM GENERIC Routine 11/19/2021 3:3 0 PM EDT from Last 3 Months or Most Recently Relevant to Health Maintenance Results * Vascular US carotid artery duplex bilateral (06/12/2025 3:28 PM EDT) 06/12/2025 3:28 PM EDT [facility] - 06/12/2025 4:05 PM EDT [address] [place] [address] Ultrasound Report Signed Patient: Tesha Minaya MR#: [id number] : 1955 Acct:[id number] Age/Sex: 70 / F ADM Date: 06/12/25 Loc: .US Attending Dr: Domi Glaser OD Ordering Physician: Domi Glaser OD Date of Service: 06/12/25 Procedure(s): US carotid duplex BI Accession Number(s): [id number] cc: Lynette Gipson MD; Domi Glaser OD Reason for Exam: Hollenhorst plaque seen in left eye EXAMINATION: US EXTRACRANIAL CAROTID DUPLEX, BILATERAL CLINICAL INFORMATION: Hollenhorst plaque, embolic cholesterol retinal disease COMPARISON: None available. TECHNIQUE: Real-time ultrasound and Doppler techniques (integrating B-mode 2-D vascular images, Doppler spectral analysis and color-flow Doppler imaging) were utilized to interrogate the extracranial carotid arteries, the vertebral arteries and proximal subclavian arteries bilaterally. The degree of stenosis is determined by criteria similar to NASCET. FINDINGS: Right Side: 1. There is moderate atherosclerotic plaque seen in the bifurcation/proximal ICA region. 2. The common carotid artery PSV proximally is 76 cm/s and distally 71 cm/s. 3. The proximal internal carotid artery velocities are 83 cm/s systolic and 13 cm/s diastolic. 4. The proximal external carotid artery PSV is 101 cm/s. 5. The vertebral artery shows antegrade flow. 6. The subclavian artery waveforms are triphasic. ICA/CCA ratio 1.1 Left Side: 1. There is no atherosclerotic plaque seen in the bifurcation/proximal ICA region. 2. The common carotid artery PSV proximally is 164 cm/s and distally 3 cm/s. 3. The proximal internal carotid artery velocities are 86 cm/s systolic and 19 cm/s diastolic. 4. The proximal external carotid artery PSV is 98 cm/s. 5. The vertebral artery shows antegrade flow. 6. The subclavian artery waveforms are triphasic. ICA/CCA ratio 0.5 US/US carotid duplex BI IMPRESSION: 1. RIGHT: No hemodynamically significant stenosis, less than 50% 2. LEFT: No hemodynamically significant stenosis, less than 50%. Electronically signed by: Juan A Jha MD 06/12/2025 04:02 PM EDT RP Dictated By: Juan A Jha MD Signed By: <Electronically signed by Juan A Jha MD in OV> 06/12/25 1602 DD/ 1528 TD/TT: 06/12/25 1545 [employer] Crop Harvest Contractor: Procedure Note Donotuseinterpreter, Image - 06/12/[address] [address] Ultrasound Report Signed Patient: Kevin Minaya#: [id number] : 1955cct:[id number] Age/Sex: 70 / FADM Date: 06/12/25 Loc: HO.US Attending Dr: Domi Glaser OD Ordering Physician: Domi Glaser OD Date of Service: 06/12/25 Procedure(s): US carotid duplex BI Accession Number(s): [id number] cc: Lynette Gipson MD; Domi Glaser OD Reason for Exam: Hollenhorst plaque seen in left eye EXAMINATION: US EXTRACRANIAL CAROTID DUPLEX, BILATERAL CLINICAL INFORMATION: Hollenhorst plaque, embolic cholesterol retinal disease COMPARISON: None available. TECHNIQUE: Real-time ultrasound and Doppler techniques (integrating B-mode 2-D vascular images, Doppler spectral analysis and color-flow Doppler imaging) were utilized to interrogate the extracranial carotid arteries, the vertebral arteries and proximal subclavian arteries bilaterally. The degree of stenosis is determined by criteria similar to NASCET. FINDINGS: Right Side: 1. There is moderate atherosclerotic plaque seen in the bifurcation/proximal ICA region. 2. The common carotid artery PSV proximally is 76 cm/s and distally 71 cm/s. 3. The proximal internal carotid artery velocities are 83 cm/s systolic and 13 cm/s diastolic. 4. The proximal external carotid artery PSV is 101 cm/s. 5. The vertebral artery shows antegrade flow. 6. The subclavian artery waveforms are triphasic. ICA/CCA ratio 1.1 Left Side: 1. There is no atherosclerotic plaque seen in the bifurcation/proximal ICA region. 2. The common carotid artery PSV proximally is 164 cm/s and distally 3 cm/s. 3. The proximal internal carotid artery velocities are 86 cm/s systolic and 19 cm/s diastolic. 4. The proximal external carotid artery PSV is 98 cm/s. 5. The vertebral artery shows antegrade flow. 6. The subclavian artery waveforms are triphasic. ICA/CCA ratio 0.5 US/US carotid duplex BI IMPRESSION: 1. RIGHT: No hemodynamically significant stenosis, less than 50% 2. LEFT: No hemodynamically significant stenosis, less than 50%. Electronically signed by: Juan A Jha MD 06/12/2025 04:02 PM EDT RP Dictated By: Juan A Jha MD Signed By: <Electronically signed by Juan A Jha MD in OV> 06/12/25 1602 DD/ 1528 TD/TT: 06/12/25 1545 [employer] Contractor: us Domi Glaser OD CV VASCULAR PROCEDURES Final Result [facility] [address] [place] [phone] * (ABNORMAL) POCT Hgb A1c (06/06/2025 11:41 AM EDT) Hemoglobin A1C 10.1(A) 4.0 - 5.7 % QC Media Lot # [id number] Lot# Expiration Date ,489 Blood 06/06/2025 11:4 1 AM EDT us Lynette Antonio MD POINT OF CARE TEST EN TER/EDIT ORDERABLES Final Result * OCT, Retina - OU - Both Eyes (05/27/2025 12:37 PM EDT) Narrative Domi Glaser, OD - 05/27/2025 12:37 PM EDT Images from the original result were not included. OCT [facility] Optical Coherence Tomography Interpretation Report Measurements: OD OS Macula Thickness 264 microns 219 microns Test findings: OD: Distorted foveal contour due to epiretinal membrane, central cystic space, No retinal pigment epithelium disruption, large PED inferior to macula OS: Distorted foveal contour due to epiretinal membrane, no overt cystoid macular edema, no retinal pigment epithelium disruption, no subretinal fluid Impression and Plan: Mild cystoid macular edema in the right eye only. Large PED inferior to macula in the right eye as well of unknown etiology. Patient likely needs autofluorescence. Will refer to a retinal specialist for further evaluation. us Domi Menaadelfo OD OPHTH TOMOGRAPHY Final Result * (ABNORMAL) Albumin, Random Urine W/Creatinine (04/04/2025 11:15 AM EDT) Creatinine, Urine 68.86 mg/dL [facility] Microalbumin Urine 246.0 mg/L [facility] Microalbum Creatinine Ratio Ur 357.2(H) <30 ug/mg cr [facility] Comment:Albumin/Creatinine R atio Reference Ranges: Normal: < 30 ug/mg creatinine Microalbuminuria: 30 - 300 ug/mg creatinineClinical Albuminuria: > 300 ug/mg creatinine 04/04/2025 11:1 5 AM EDT 04/04/2025 1:16 PM EDT Lynette Antonio MD LAB URINE ORDERABLES Final Result Performing Organization Address City/[facility]/ZIP Co de Phone Number [facility] [address] [place] [phone] * (ABNORMAL) Phosphate (As Phosphorus) (04/04/2025 11:15 AM EDT) Phosphorus 2.4(L) 2.7 - 4.5 mg/dL [facility] Blood Venous blood specimen / Unknown 04/04/2025 11:15 AM EDT 04/04/2025 12:56 PM EDT Lynette Antonio MD LAB BLOOD ORDERABLES Final Result Performing Organization Address City/[facility]/ZIP Co de Phone Number [facility] [address] [place] [phone] * POCT Glucose (04/04/2025 10:35 AM EDT) Glucose Blood, POC 98 60 - 200 mg/dL QC Media Lot # [id number] Lot# Expiration Date 174,[id number] Blood Capillary blood specimen / Unknown 04/04/2025 10:35 AM EDT Lynette Antonio MD POINT OF CARE TEST EN TER/EDIT ORDERABLES Final Result * (ABNORMAL) Lipid Panel, Standard (11/15/2024 10:22 AM EDT) Triglycerides 437(H) <150 mg/dL [facility] Comment:Desirable Triglyceri de: less than 150 mg/dLBorderline High Triglyceride 150-199 mg/dLHigh Triglyceride: 200-499 mg/dLVery High Triglyceride: greater than or equal to 5OO mg/dL Cholesterol 185 <200 mg/dL [facility] Comment:Desirable Cholestero l: less than 200 mg/dLBorderline High Cholesterol: 200-239 mg/dLHigh Cholesterol: greater than 239 mg/dL LDL Cholesterol Calculated TNP <100 mg/dL [facility] Comment:Unable to calculate the LDL. The formula of Friedwald,Valente, and Ish is only valid if the triglycerides areless than 400 mg/dl. HDL Cholesterol 28(L) >40 mg/dL [facility] Comment:Desirable HDL: great er than 40 mg/dL Note: This HDL assay may give artificially low results in patients with liver disease. Blood Venous blood specimen / Unknown 11/15/2024 10:22 AM EDT 11/15/2024 11:30 AM EDT Lynette Antonio MD LAB BLOOD ORDERABLES Final Result [facility] [address] [place] [phone] * Hepatitis C Antibody with Reflex to HCV, RNA, Quantitative, Real-Time PCR (10/05/2024 10:42 AM EST) Hepatitis C Antibody Nonreactive Nonreactive [facility] Comment:Antibodies to HCV no t detected; does not exclude early acuteHCV infection. Blood Venous blood specimen / Unknown 10/05/2024 10:42 AM EST 10/05/2024 1:06 PM EST us Lynette Antonio MD LAB BLOOD ORDERABLES Final Result [facility] [address] [place] [phone] * Mammography Report 1 (11/19/2021 3:30 [...] Most Recently Relevant to Health Maintenance Insurance [facility] [employer]ILLED [employer]SING OPTIONS (HMO D-SNP) ANTONIA ARIAS [phone] Care Teams Fabric Coating Supervisor Relationship Specialty Start Date End Date Lynette Gipson MD [address] [place] [address] PCP - General Family Medicine 09/24/20 Angelo Dhal, CaroD [address] [place] [address] Pharmacist Internal Medicine 11/21/24 [facility] 11/09/24
--- OUTSIDE RECORDS SUMMARY | 2025-06-12 19:33 | XMS_ITS | Encounter Summary ---
Author Organization [facility] Address [address] [place] [address] Phone Care Team Providers Care Highway Commissioner Name Role Phone Lynette Gipson MD Primary Care Provide r Encounter Details Date Type Department Care Team (Late st Contact Info) Description 07/21/2022 Documentation Only [facility], [address] [place] [address] Miguel Johnston PA [address] [place] [address] Social History Tobacco Use Types Packs/Day Years [...] on filedocumented in this encounter Care Teams Highway Commissioner Relationship Specialty Start Date End Date Lynette Gipson MD [address] [place] [phone] PCP - General Internal Medicine 10/16/24 documented as of this encounter
--- OUTSIDE RECORDS SUMMARY | 2025-06-12 19:33 | XMS_ITS | Encounter Summary ---
Author Organization [employer] Address [address] [place] [address] Care Team Providers Care Postmaster Name Role Phone Lynette Gipson MD Primary Care Provide r Angelo Dahl PharmD Unavailable [phone] Reason for Visit * Reason Comments Med Refill Encounter Details Date Type Department Care Team (Late st Contact Info) Description 02/16/2025 Refill [facility] [address] [place], [place] [phone] Lynette Gipson MD [address] [place], [place] [phone] Type 2 diabetes mellitus with other specified complication, with long-term current use of insulin ([facility]) Social History Tobacco Use Types Packs/Day Years [...] Description 07/05/2025 9:30 AM EST Office Visit [facility] [address] [place] [address] Lynette Gipson MD [address] [place] [address] 08/29/2025 11:00 AM EST Medication Management [facility] [address] [place] [address] Angelo Dahl, PharmD [address] [place] [address] 09/20/2025 1:00 PM EST Office Visit [facility] [address] [place] [address] Domi Glaser, ZIA [address] [place] [address] documented as of this encounter Visit Diagnoses Diagnosis Type 2 diabetes mellitus with other specified complication, with long-term current use of insulin (HCC) documented in this encounter Additional Health Concerns Assessment Noted Time PHQ-9 Depression Total Score: 0 05/21/20 25 9:51 AM EDT documented as of this encounter Care Teams Postmaster Relationship Specialty Start Date End Date Lynette Gipson MD [address] [place] [phone] PCP - General Family Medicine 09/24/20 Angelo Dahl, CaroD [address] [place] [address] Pharmacist Internal Medicine 11/21/24 [facility] 11/09/24 documented as of this encounter
--- OUTSIDE RECORDS SUMMARY | 2025-06-12 19:33 | XMS_ITS | Encounter Summary ---
Author Organization [employer] Address [address] [place] [address] Care Team Providers Care Color Artist Name Role Phone Lynette Gipson MD Primary Care Provide r Angelo Dahl PharmD Unavailable [phone] Encounter Details Date Type Department Care Team ([facility] st Contact Info) Description 11/15/2024 Orders Only [facility] [address] [place], [place] [phone] Lynette Gipson MD [address] [place], [place] [phone] Social History Tobacco Use Types Packs/Day Years [...] Description 07/05/2025 9:30 AM EST Office Visit [facility] [address] [place] [address] Lynette Gipson MD [address] [place] [address] 08/29/2025 11:00 AM EST Medication Management [facility] [address] [place] [address] Angelo Dahl, PharmD [address] [place] [address] 09/20/2025 1:00 PM EST Office Visit [facility] OPT[facility] [address] [place] [address] Domi Glaser, OD [address] [place] [address] documented as of this encounter Visit Diagnoses Not on filedocumented in this encounter Additional Health Concerns Assessment Noted Time PHQ-9 Depression Total Score: 0 06/29/20 24 10:24 AM EST documented as of this encounter Care Teams Color Artist Relationship Specialty Start Date End Date Lynette Gipson MD [address] [place] [address] PCP - General Family Medicine 09/24/20 Angelo Dahl, CaroD [address] [place] [address] Pharmacist Internal Medicine 11/21/24 [facility] 11/09/24 documented as of this encounter
--- OUTSIDE RECORDS SUMMARY | 2025-06-12 19:33 | XMS_ITS | Encounter Summary ---
Author Organization [employer] Address [address] [place] [address] Care Team Providers Care Audio Visual Design Engineer Name Role Phone Lynette Gipson MD Primary Care Provide r Angelo Dahl PharmD Unavailable [phone] Encounter Details Date Type Department Care Team (Late Contact Info) Description 11/09/2022 Orders Only [facility] [address] [place], [place] [phone] Lynette Gipson MD [address] [place], [place] [phone] Dyslipidemia associated with type 2 diabetes mellitus [...] Department Care Team (Late Contact Info) Description 07/05/2025 9:30 AM EST Office Visit [facility] [address] [place] [address] Lynette Gipson MD [address] [place] [address] 08/29/2025 11:00 AM EST Medication Management [facility] [address] [place] [address] Angelo Dahl, PharmD [address] [place] [address] 09/20/2025 1:00 PM EST Office Visit [facility] OPT[facility]ET[facility] [address] [place] [address] Domi Glaser, OD [address] [place] [address] documented as of this encounter Visit Diagnoses Diagnosis Dyslipidemia associated with type 2 diabetes mellitus (HCC)- Primary documented in this encounter Additional Health Concerns Assessment Noted Time PHQ-9 Depression Total Score: 5 11/09/19 23 9:02 AM EDT documented as of this encounter Care Teams Audio Visual Design Engineer Relationship Specialty Start Date End Date Lynette Gipson MD [address] [place] [id number] PCP - General Family Medicine 09/24/20 Angelo Dahl, PharmRey [address] [place] [id number] Pharmacist Internal Medicine 11/21/24 [facility] 11/09/24 documented as of this encounter
== END 2025-06-12 15:04 | disposition home or self-care (01) ==
LOC: HO.US 15:03
PROVIDERS: PCP Internal Medicine; Visit Provider Optometrist
DX: H34.212 Partial retinal artery occlusion, left eye (principal)
CPT/HCPCS: 93880

== ENCOUNTER → 2025-06-12 15:28 | Outpatient (BNV) | payer OTHER, SELFPAY | PROVIDERS: PCP Internal Medicine; Visit Provider Radiology Diagnostic Radiology | DX: H34.212 Partial retinal artery occlusion, left eye (principal) | CPT/HCPCS: 93880 ==